=== PATIENT | female | born 1955 | race African-American/Black ===

== ENCOUNTER 2017-08-27 12:22 | Inpatient (IN) | payer MEDICARE, MEDICAID ==
[2017-08-27] MEDS ORDERED: Nitroglycerin 0.4 MG TAB (25 Tab Bottle) ONE (13:01)
[2017-08-27 13:09] LABS: #Basophils 0.1 thou/uL (0.0-0.2); #Eosinphils 0.1 thou/uL (0.0-0.7); #Lymphocytes 4.1 thou/uL (1.20-3.40); #Monocytes 0.4 thou/uL (0.11-0.59); %Basophils 1.1 % (0.0-1.0); %Eosinophils 1.5 % (0.0-10.0); %Lymphocytes 46.6 % (21.0-51.0); %Monocytes 4.5 % (0.0-10.0); %Neutrophils 46.3 % (42.0-75.0); Hemoglobin 14.4 g/dL (12.0-16.0); Mean Corpuscular HGB CONC 32.7 g/dL (32.0-36.0); Mean Corpuscular Hemoglobin 27.8 pg (27.0-31.0); Mean Corpuscular Volume 85.2 fl (81.0-99.0); Mean Platelet Volume 8.4 fL (7.4-10.4); Platelet Count 225 thou/uL (130-400); RBC Distribution Width 13.9 % (11.5-14.5); Red Blood Cell (RBC) Count 5.19 mill/uL (4.20-5.40); White Blood Cell (WBC) Count 8.7 thou/uL (4.8-10.8)
[2017-08-27 13:24] LABS: ALT (SGPT) 20 U/L (8-55); AST (SGOT) 14 U/L (5-34); Albumin 3.8 g/dL (3.4-4.8); Alkaline Phosphatase 91 U/L (40-150); Anion Gap 13 mmol/L (10-20); BUN (Urea Nitrogen) 12 mg/dL (9.8-20.1); Bilirubin, Total 0.4 mg/dL (0.2-1.2); CK (CPK) 62 U/L (29-168); Calc. Creatinine Clearance 0 mL/min (70-130); Calcium 9.5 mg/dL (7.8-10.44); Carbon Dioxide 20 mmol/L (23-31); Chloride 109 mmol/L (98-107); Estimated GFR-MDRD Greater than 90; Globulin 2.9 g/dL (2.4-3.5); Glucose 178 mg/dL (80-115); Lipase 28 U/L (8-78); Potassium 4.2 mmol/L (3.5-5.1); Protein, Total 6.7 g/dL (6.0-8.3); Sodium 138 mmol/L (136-145)
[2017-08-27 13:28] LABS: CKMB 1.2 ng/mL (0-6.6); Troponin I 0.021 ng/mL (< 0.028)
[2017-08-27] MEDS ORDERED: Acetaminophen 325 MG TAB PO PRN (15:09)
[2017-08-27] MEDS ORDERED: Ondansetron HCl/PF 4 MG/2 ML Vial IVP PRN (15:09)
[2017-08-27] MEDS ORDERED: Dextrose 5% in Water 1,000 ML IV PRN (15:09)
[2017-08-27] MEDS ORDERED: Ondansetron ODT 4 MG TAB PO PRN (15:09)
[2017-08-27] MEDS ORDERED: Milk Of Magnesia 30 ML UDCUP PO PRN (15:09)
[2017-08-27] MEDS ORDERED: Senokot 8.6 MG TAB PO PRN (15:09)
[2017-08-27] MEDS ORDERED: Dextrose 50% Abboject 50 ML SYRINGE SLOW IVP PRN (15:09)
[2017-08-27] MEDS ORDERED: cloNIDine 0.1 MG TAB PO PRN ×2 (15:09→19:05)
[2017-08-27] MEDS ORDERED: HumaLOG 300 UNITS/3 ML VIAL SC PRN (15:09)
[2017-08-27] MEDS ORDERED: Mag-Al 1200 mg/1200 mg/30 ML UDCUP PO PRN (15:09)
[2017-08-27] MEDS ORDERED: Loperamide HCl 2 MG CAP PO PRN (15:09)
[2017-08-27 15:25] VITALS: BMI 28.8
[2017-08-27] MEDS: HYDROcodone/Acetaminophen 5/325 mg Tablet PO PRN (15:38)
--- NOTE | 2017-08-27 15:55 | HP ---
PRIMARY CARE PHYSICIAN: Hipolito Dudley M.D. PRIMARY INSTALLATION DRAFTER: Dr. Smith. REASON FOR ADMISSION: Chest pain. HISTORY OF PRESENT ILLNESS: A 62-year-old -[place] female with a history of hypertension, dy slipidemia, COPD, coronary artery disease and peripheral arterial disease who presented initially to [facility] with complaint of chest pain. She was also having dyspnea on exertion. The patient reports that first time chest pain started yesterday around 3:00 p.m. At that time, she was feeling nausea. Her pain was left-sided in location, 6/10 in intensity and subsided within an ho ur. She was continued to complain of shortness of breath with some intermittent wheezing. She was a ble to go to sleep without any problem, but around 3:00 a.m., she woke up with acute onset of chest p ain and her chest pain intensity was more severe than at during daytime. It was radiating to left ar m and associated with shortness of breath. She denies any associated palpitation. She denies any re lation of chest pain with food, respiration or activity. It was constant from 3:00 a.m. to 8:00 a.m. without any change. She was evaluated at [facility]. Over there, her electrocardiograph was unremarkabl e. Her routine blood tests including cardiac enzyme were negative and subsequently she was transferr ed to our emergency room for rule out ACS. In our emergency room, patient was wheezing and that is w hy she was given DuoNeb therapy. After that, she was feeling better. She denies any hemoptysis. She denies any calf tenderness. She denies any fever or chills. She den ies any UTI symptoms. PAST MEDICAL HISTORY: Diabetes type 2, hypertension, dyslipidemia, coronary artery disease, COPD, pe ripheral arterial disease, osteoarthritis, gastroesophageal reflux disease, history of polysubstance abuse in past. PAST SURGICAL HISTORY: Thyroid surgery to remove goiter, cholecystectomy in 1975, , CABG x3 in 2012. PAST PSYCHIATRIC HISTORY: Reviewed and negative. FAMILY HISTORY: Hypertension and heart disease runs among several family members. Diabetes also run s among several family members. SOCIAL HISTORY: Patient smokes 5-6 cigars daily basis. She denies any current illicit drug abuse. She drinks alcohol occasionally. ALLERGIES: No known drug allergy. REVIEW OF SYSTEMS: The following complete review of systems was negative, unless otherwise mentioned in the HPI or below: Constitutional: Weight loss or gain, ability to conduct usual activities. Skin: Rash, itching. Eyes: Double vision, pain. ENT/Mouth: Nose bleeding, neck stiffness, pain, tenderness. Cardiovascular: Palpitations, dyspnea on exertion, orthopnea. Respiratory: Shortness of breath, wheezing, cough, hemoptysis, fever or night sweats. Gastrointestinal: Poor appetite, abdominal pain, heartburn, nausea, vomiting, constipation, or diarr hea. Genitourinary: Urgency, frequency, dysuria, nocturia. Musculoskeletal: Pain, swelling. Neurologic/Psychiatric: Anxiety, depression. Allergy/Immunologic: Skin rash, bleeding tendency. Please see my HPI for pertinent positive and negative. All other review of systems reviewed and nega tive except as mentioned in the HPI. CURRENT HOME MEDICATIONS: Aspirin 81 mg p.o. daily, Lipitor 40 mg p.o. at bedtime, Symbicort 2 puffs inhalation b.i.d., clonidine 0.1 mg p.o. b.i.d., Lasix 20 mg p.o. daily, hydralazine 50 mg t.i.d., D uoNeb q.6 hourly p.r.n., metformin 500 mg p.o. b.i.d., Bystolic 20 mg p.o. daily, Phenergan with code ine 5 mL q.6 hourly p.r.n., valsartan 160 mg p.o. b.i.d., Ventolin inhaler 2 puffs q.4 hourly p.r.n. EMERGENCY ROOM COURSE: Patient received DuoNeb therapy, nitroglycerin 0.4 mg sublingual x2, aspirin 234 mg p.o. one time dose is given. Repeat blood test done in our emergency room was unremarkable. PHYSICAL EXAMINATION: VITAL SIGNS: Currently, blood pressure 178/92, pulse 86, respiratory rate 20, temperature 98.3, satu ration 97% on room air, weight 63 kilograms. GENERAL: Patient is currently alert, awake, no acute distress. HEAD: Normocephalic, atraumatic. EYES: Pupils round, reactive to light. Extraocular muscle intact. ENT: Oropharynx within normal limits. Moist mucous membranes. No oral lesion, no pharyngeal erythe ma, no exudate. NECK: Supple, no JVD, no thyromegaly, no carotid bruit. LUNGS: Few end expiratory wheezing heard. CARDIAC: S1 and S2 regular. No murmur, no gallop, no rub. ABDOMEN: Soft, bowel sounds present, nontender, nondistended. No organomegaly, no mass, no suprapub ic tenderness. BACK: Examination unremarkable, no CVA tenderness. EXTREMITIES: Upper extremity passive movement of all joints are normal. Lower extremities: No zuleima a, no calf tenderness. Good distal pulsation. SKIN: No skin rash. HEMATOLOGICAL SYSTEM: No lymphadenopathy. PSYCHIATRIC: Normal affect. IMAGING DATA AND SIGNIFICANT LABORATORY DATA: 1. Chest x-ray based on my review, no acute cardiopulmonary process. 2. CBC: WBC 8.8, hemoglobin 14.2, platelet 247. INR 1.0. 3. BMP: Sodium 140, potassium 4.3, chloride 109, carbon dioxide 21, BUN 15, creatinine 0.82, glucos e 139, calcium 9.6, magnesium 2.2. 4. LFT: AST 19, ALT 24, alkaline phosphatase 79, albumin 3.9, CK 67, CK-MB 1.1, troponin I less giovany n 0.010 and second set is also negative, BNP 26.8, lipase 28. 5. EKG normal sinus rhythm within normal limits. ASSESSMENT AND PLAN/IMPRESSION: 1. Acute chest pain. Patient does have acute and recurrent chest pain, but cardiac enzymes negative x2 and EKG is negative. Her BNP is normal. She does not have any hypoxia. At this point, patient is admitted for rule out acute coronary syndrome. We will perform stress test tomorrow morning for d iagnostic reason. Meanwhile, we will continue with aspirin 325 mg p.o. daily, nitropatch q.8 hourly. We will check lipid profile for risk stratification and continue Lipitor 40 mg p.o. at bedtime and Bystolic 20 mg p.o. daily. 2. Chronic obstructive pulmonary disease with mild exacerbation with bronchitis. We will continue w ith DuoNeb every 6 hourly along with Dulera 2 puffs inhalation b.i.d., Solu-Medrol 20 mg IV q.8 hourl y, and Mucinex 600 mg twice daily. 3. Hypertension. We will continue clonidine 0.1 mg p.o. b.i.d., along with hydralazine 50 mg t.i.d. , Bystolic 20 mg p.o. daily, and valsartan 160 mg p.o. b.i.d. We will use hydralazine on p.r.n. basi s. 4. Dyslipidemia. Check lipid profile tomorrow and continue Lipitor 40 mg p.o. at bedtime. 5. Diabetes type 2. Continue metformin 500 mg p.o. b.i.d. and insulin as per sliding scale per prot ocol. Diabetic diet will be given. 6. Tobacco abuse disorder. Smoking cessation counseling given. Healthy lifestyle measures discusse d with the patient. 7. Coronary artery disease. Continue aspirin, statin therapy and Bystolic as well as losartan as pe r home dosage. Patient is admitted for rule out acute coronary syndrome. 8. Deep venous thrombosis prophylaxis not needed because we are expecting discharge in 24 hours. 9. Gastrointestinal prophylaxis, Pepcid 20 mg p.o. b.i.d. 10. Code status: The patient is FULL CODE. Patient's daughter is surrogate decision maker. Disposition plan based on stress test result, likely within 24 hours. Plan of care discussed with th fernando patient and family member at bedside in the emergency room.
[2017-08-27 16:28] LABS: Troponin I 0.044 ng/mL (< 0.028)
[2017-08-27] MEDS: metFORMIN 500 MG TAB PO SCH (17:54)
[2017-08-27] MEDS: Mometasone/Formoterol 120 PUFF INHALER INH SCH (18:54)
[2017-08-27 19:30] LABS: Troponin I 0.043 ng/mL (< 0.028)
[2017-08-27] MEDS ORDERED: cloNIDine 0.1 MG TAB PO SCH (21:00)
[2017-08-27] MEDS ORDERED: Atorvastatin Calcium 40 MG TAB PO SCH (21:00)
[2017-08-27] MEDS: hydrALAZINE 25 MG TAB PO SCH (22:17)
[2017-08-27] MEDS: Carvedilol 25 MG TAB PO SCH (22:17)
[2017-08-27] MEDS: Famotidine 20 MG TAB PO SCH (22:17)
[2017-08-27] MEDS: Valsartan 80 MG TAB PO SCH (22:17)
[2017-08-27] MEDS: guaiFENesin ER 600 MG TAB PO SCH (22:18)
[2017-08-27] MEDS: Nitroglycerin 2% Ointment 1 INCH/1 GM Packet TOP SCH (22:19)
[2017-08-28] MEDS: Nitroglycerin 0.4 MG TAB (25 Tab Bottle) ONE ×2 (01:13→01:18)
[2017-08-28 01:56] LABS: Troponin I 0.036 ng/mL (< 0.028)
[2017-08-28] MEDS: Nitroglycerin 2% Ointment 1 INCH/1 GM Packet TOP SCH ×4 (01:57→18:21)
[2017-08-28] MEDS ORDERED: Aspirin 325 MG TAB PO SCH (02:00)
[2017-08-28 04:59] LABS: Cardiac Risk 6.2 (Less than 4.5)
[2017-08-28] MEDS: Mometasone/Formoterol 120 PUFF INHALER INH SCH ×2 (06:36→19:00)
[2017-08-28 08:03] LABS: Troponin I 0.029 ng/mL (< 0.028)
[2017-08-28] MEDS ORDERED: Nebivolol HCl 5 MG TAB PO SCH (09:00)
[2017-08-28] MEDS: metFORMIN 500 MG TAB PO SCH ×2 (09:51→15:40)
[2017-08-28] MEDS: Carvedilol 25 MG TAB PO SCH ×2 (09:59→21:28)
[2017-08-28] MEDS: hydrALAZINE 25 MG TAB PO SCH ×3 (11:44→21:29)
[2017-08-28] MEDS: Valsartan 80 MG TAB PO SCH ×2 (11:44→21:29)
[2017-08-28] MEDS: Aspirin 325 MG TAB PO SCH (11:45)
[2017-08-28] MEDS: Famotidine 20 MG TAB PO SCH ×2 (11:45→21:28)
[2017-08-28] MEDS: Nitroglycerin 0.4 MG TAB (25 Tab Bottle) SL PRN ×3 (14:09→16:10)
[2017-08-28] MEDS ORDERED: Heparin 0 ML ONE (14:32)
[2017-08-28] MEDS ORDERED: Heparin 10,000 UNITS/1 ML VIAL ONE (14:33)
[2017-08-28] MEDS ORDERED: Lidocaine 1% (PF) 30 ML VIAL ONE (14:33)
[2017-08-28] MEDS: guaiFENesin ER 600 MG TAB PO SCH ×2 (14:40→21:29)
[2017-08-28] MEDS: Furosemide 20 MG TAB PO SCH (14:40)
--- NOTE | 2017-08-28 15:14 | PDOC.PN ---
- Subjective Encounter Start Date: 08/28/17 Encounter Start Time: 15:12 Ms. Kurtz was seen today in follow-up of chest pain. She says she is feeling better now, after she was given a dose of NTG. She denies feeling dizzy or lightheaded. - Objective Resuscitation Status: Resuscitation Status FULL:Full Resuscitation MAR Reviewed: Yes Vital Signs & Weight: Vital Signs (12 hours) Temp Pulse Resp BP BP Pulse Ox 08/28/17 14:09 77 191/97 H 08/28/17 14:00 87 145/87 H 08/28/17 11:44 77 08/28/17 11:24 98.3 F 59 L 20 191/79 H 97 08/28/17 07:34 97.4 F L 77 17 134/70 95 08/28/17 07:20 97.4 F L 77 17 08/28/17 06:37 80 14 08/28/17 04:25 96.5 F L 85 18 144/63 H 93 L Weight Weight 167 lb 11.2 oz I&O: 08/27/17 08/28/17 08/29/17 06:59 06:59 06:59 Intake Total 600 Balance 600 Result Diagrams: 08/27/17 12:54 08/27/17 12:54 Additional Labs: Accuchecks 08/28/17 08/27/17 08/27/17 05:54 22:18 17:06 POC Glucose 275 H 123 H 163 H Phys Exam - Physical Examination HEENT: PERRLA Respiratory: no wheezing, no rales, no rhonchi, clear to auscultation bilateral Cardiovascular: RRR, no significant murmur, no rub Gastrointestinal: soft, non-tender, positive bowel sounds Musculoskeletal: no edema Dx/Plan (1) Chest pain Code(s): R07.9 - CHEST PAIN, UNSPECIFIED Status: Acute (2) Coronary artery disease Code(s): I25.10 - ATHSCL HEART DISEASE OF [place] CORONARY ARTERY W/O ANG PCTRS Status: Acute (3) Diabetes mellitus type 2 in nonobese Code(s): E11.9 - TYPE 2 DIABETES MELLITUS WITHOUT COMPLICATIONS Status: Acute (4) Hypertension Code(s): I10 - ESSENTIAL (PRIMARY) HYPERTENSION Status: Acute (5) COPD (chronic obstructive pulmonary disease) Status: Acute (6) Tobacco abuse Code(s): Z72.0 - TOBACCO USE Status: Acute - Plan * Chest pain- this is suspicious for angina * The stress test was cancelled due to some arrhythmia noted earlier today, with ST segment changes- discussed with Dr. Barclay, who will be assessing the patient today. Echo has been ordered * Tobacco Abuse- discussed cessation in detail * HTN- blood pressure has been labile- she is back on her usual medications- will observe and continue PRN medications * COPD- stable- again discussed smoking cessation.
--- NOTE | 2017-08-28 15:43 | NM ---
MYOCARDIAL PERFUSION EXAM: INDICATIONS: Chest pain. TECHNIQUE: The patient was given 9 millicuries of technetium sestamibi. A rest only study was performed. The e xam was canceled by the rn orthopaedic after the rest only study. Activity is seen throughout the left ventricle on the rest only study. Mild thinning of the inferior wall. FINDINGS: Rest only study shows no definite defect. POS: [facility]
[2017-08-28] MEDS ORDERED: Enoxaparin Sodium 80 MG/0.8 ML SYRINGE SC SCH ×2 (15:45→21:00)
[2017-08-28 16:51] LABS: Amphetamine Not Detected (NotDetected); Barbiturates Screen Not Detected (NotDetected); Benzodiazepine Screen Not Detected (NotDetected); Cocaine Metabolite Screen Detected (NotDetected); Medtox Control Line Valid? VALID (VALID); Medtox Reader # READER 1; Methadone Not Detected (NotDetected); Methamphetamine Not Detected (NotDetected); Opiate Screen Detected (NotDetected); Oxycodone Screen Not Detected (NotDetected); Phencyclidine (PCP) Not Detected (NotDetected); THC/Cannabinoid Screen Not Detected (NotDetected); Tricyclic Screen Not Detected (NotDetected)
--- NOTE | 2017-08-28 18:35 | CON ---
DATE OF CONSULTATION: 08/28/2017 HISTORY: Ms. Shawnee Kurtz is a pleasant 62-year-old black female who presents with chest discomfort. She was evaluated here in 09/[address] Smith. She had mildly elevated troponin and was to undergo cardiac catheterization; however , no femoral, popliteal, posterior tibial or dorsalis pedis pulses were felt. She underwent a CTA of the abdominal aorta, which revealed that there was probable occlusion at the bifurcation. She therefore underwent cardiac catheterization via the radial approach by Dr. Jean. There was a significant left main disease, distal 50%-60% LAD, 90%-95% stenosis of the circumflex and the right coronary artery was totally occluded in its proximal portion. She then underwent CABG x3 by Dr. Cifuentes with MARLOW to LAD, saphenous vein to the first obtuse marginal and saphenous vein to the diagonal (with a description of the procedure, the diagonal was not mentioned; however, the procedure in detail mentioned that there was a graft to the diagonal.) The second obtuse marginal, third obtuse marginal, fourth obtuse marginal and right posterior descending artery were all felt to be too small and heavily diseased for bypass. Apparently, her postop course was unremarkable. It is also of note that during that admission, she had positive urine drug screen for cocaine and cannabinoids. She apparently has not returned for Cardiology follow up since that time. She was hospitalized in 01/2016 with COPD exacerbation. She denies any exertional chest discomfort, it is mostly limited by pain in her right leg with walking. Then, over the past 8 days, she has started to have chest pressure associated with shortness of breath and diaphoresis. The episodes would last anywhere from 3-20 minutes. The pain became more intense and she went to the hospital in [place] and was transferred here for further evaluation. She was scheduled to undergo a Lexiscan Cardiolite testing ; however, it was noted that she had an episode of chest discomfort early this morning at 0113. This was accompanied by a [address] segment depression. With this finding associated with chest pain, it was felt that she should not undergo Cardiolite testing. PAST MEDICAL HISTORY: Diabetes, hyperlipidemia (she states she does not take the atorvastatin daily), coronary artery disease, COPD, severe peripheral vascular disease with subtotally occluded aorta in 2012, osteoarthritis, GERD, polysubstance abuse in the past. OPERATIONS: CABG, thyroid surgery for goiter, and cholecystectomy. MEDICATIONS: At home, aspirin 81 daily, atorvastatin 40 at bedtime, carvedilol 25 b.i.d., clonidine 0.1 mg b.i.d. p.r.n., Lasix 20 mg daily, hydralazine 50 t.i.d., metformin 500 b.i.d., valsartan 160 b.i.d., Ventolin 2 puffs q.4 hours p.r.n. ALLERGIES: None. SOCIAL HISTORY: She continues to smoke 3-4 cigarettes per day. She occasionally drinks alcohol. She abuse cocaine in the past. FAMILY HISTORY: Heart disease in family members. REVIEW OF SYSTEMS: Twelve point review of systems otherwise unremarkable. PHYSICAL EXAMINATION: VITAL SIGNS: Blood pressure 191/97, pulse of 77. HEENT: PERRL. NECK: Supple. LUNGS: Chest revealed bilateral rhonchi. CARDIOVASCULAR: S1, S2 normal, without any S3 or S4. There is a 2/6 systolic ejection murmur in the aortic area. Carotid upstrokes normal without bruits. Dorsalis pedis, posterior tibial pulses, femoral pulses are absent. ABDOMEN: Normal bowel sounds, without tenderness. EXTREMITIES: Revealed no clubbing, cyanosis or edema. NEUROLOGIC: Grossly intact. LABORATORY DATA AND IMAGING: EKG reveals normal sinus rhythm, possible left atrial enlargement. She does have ST segment depression with chest pain as noted above. CBC is unremarkable. INR 1.0. Sodium 138, potassium 4.2, chloride 109, carbon dioxide 20, BUN 12, creatinine 0.76. Troponin I is 0.044. BNP 55.1. Cholesterol 265, triglycerides 113, LDL 99, HDL 43. IMPRESSION: 1. Acute coronary syndrome with ST segment depression with chest discomfort, borderline troponin. 2. Status post coronary artery bypass graft x3 in 09/2012 with a MARLOW to LAD, vein graft to the diagonal and the first obtuse marginal. The second, third, and fourth obtuse marginals and right posterior descending were too smaller disease for bypass. 3. Aortic murmur. 4. Subtotal versus totally occluded distal aorta on CT of the abdomen in 2012. 5. Hypertension. 6. Hypercholesterolemia, poorly controlled, noncompliant with atorvastatin. 7. Diabetes. 8. The patient continues to smoke. 9. Positive family history. 10. History of cocaine abuse. PLAN: Atorvastatin will be increased to 40 mg daily. Urine drug screen will be obtained. Carvedilol dose will be increased for better blood pressure control. Topical nitrates will also be added. She will be given one shot of Lovenox 1 mg/kg at this time. Ms. Kurtz represents a significant problem in terms of the subtotally occluded aorta and probable inability to have her undergo cardiac catheterization from the femoral approach. Probable only approach should be through a radial artery ; however, opacifying bypass grafts from this approach is extremely difficult. Further consultation will be held with apple sorter who do radial approach, in the meantime, her medications will be further increased. BLESSING
[2017-08-28] MEDS: Atorvastatin Calcium 40 MG TAB PO SCH (21:28)
[2017-08-28] MEDS: Zolpidem Tartrate 5 MG TAB PO PRN (21:30)
[2017-08-29] MEDS: Nitroglycerin 2% Ointment 1 INCH/1 GM Packet TOP SCH ×6 (01:03→22:35)
[2017-08-29] MEDS: Nitroglycerin 0.4 MG TAB (25 Tab Bottle) SL PRN ×2 (01:38→20:46)
[2017-08-29] MEDS: Mometasone/Formoterol 120 PUFF INHALER INH SCH ×2 (06:44→18:40)
--- NOTE | 2017-08-29 07:26 | PRG ---
DATE OF SERVICE: 08/29/2017 Ms. Kurtz is resting comfortably this morning. No chest pain or pressure this morning. PHYSICAL EXAMINATION: VITAL SIGNS: Blood pressure 133/60, pulse is 90. I reviewed the situation with the patient. The patient does admit to using cocaine sporadically prio r to admission, smoking about 3 cigarettes per day. She said she was not taking the atorvastatin on a regular basis. She was taking aspirin. ASSESSMENT: 1. Unstable angina. 2. Cocaine addiction. 3. Previous bypass. 4. Severe peripheral vascular disease. 5. Diabetes. 6. Noncompliance with medicines. PLAN: Dr. Aleman will see the patient today to assess whether she is a candidate for cardiac cathete rization. It is very concerning that she has not been compliant with medicines. She said she was co mpliant with aspirin, but was taking atorvastatin sporadically. The LDL reflects that as the LDL is 199.
[2017-08-29] MEDS: Valsartan 80 MG TAB PO SCH ×2 (10:12→20:39)
[2017-08-29] MEDS: Famotidine 20 MG TAB PO SCH ×2 (10:12→20:40)
[2017-08-29] MEDS: Aspirin 325 MG TAB PO SCH (10:15)
[2017-08-29] MEDS: hydrALAZINE 25 MG TAB PO SCH ×3 (10:17→20:38)
[2017-08-29] MEDS: guaiFENesin ER 600 MG TAB PO SCH ×2 (10:17→20:39)
[2017-08-29] MEDS: Carvedilol 25 MG TAB PO SCH ×3 (10:19→20:40)
[2017-08-29] MEDS: Furosemide 20 MG TAB PO SCH (10:19)
[2017-08-29] MEDS: metFORMIN 500 MG TAB PO SCH ×2 (10:19→16:06)
[2017-08-29] MEDS ORDERED: Diazepam 5 MG TAB PO SCH (11:00)
--- NOTE | 2017-08-29 13:44 | PDOC.PN ---
- Subjective Encounter Start Date: 08/29/17 Encounter Start Time: 13:42 Ms. Kurtz was seen today in follow-up. She has not had any chest pain today. She is breathing ok, and denies dyspnea. - Objective Resuscitation Status: Resuscitation Status FULL:Full Resuscitation MAR Reviewed: Yes Vital Signs & Weight: Vital Signs (12 hours) Temp Pulse Resp BP BP Pulse Ox 08/29/17 12:00 80 14 08/29/17 10:40 97.9 F 89 12 144/67 H 95 08/29/17 10:17 78 144/75 H 08/29/17 08:00 98.2 F 78 12 08/29/17 07:27 98.2 F 78 12 144/65 H 95 08/29/17 06:44 90 14 08/29/17 04:10 97.7 F 83 18 133/60 96 08/29/17 01:50 98 18 96 Weight Weight 167 lb 11.2 oz I&O: 08/28/17 08/29/17 08/30/17 06:59 06:59 06:59 Intake Total 600 480 Output Total 1200 Balance 600 -720 Result Diagrams: 08/27/17 12:54 08/27/17 12:54 Additional Labs: Accuchecks 08/29/17 08/29/17 08/28/17 10:42 07:01 20:44 POC Glucose 190 H 201 H 162 H 08/28/17 08/28/17 08/28/17 18:31 16:20 11:30 POC Glucose 217 H 250 H 161 H Phys Exam - Physical Examination HEENT: PERRLA Respiratory: no wheezing, no rales, no rhonchi, clear to auscultation bilateral Cardiovascular: RRR, no significant murmur, no rub Gastrointestinal: soft, non-tender, positive bowel sounds Musculoskeletal: no edema Dx/Plan (1) Chest pain Code(s): R07.9 - CHEST PAIN, UNSPECIFIED Status: Acute (2) Coronary artery disease Code(s): I25.10 - ATHSCL HEART DISEASE OF [place] CORONARY ARTERY W/O ANG PCTRS Status: Acute (3) Diabetes mellitus type 2 in nonobese Code(s): E11.9 - TYPE 2 DIABETES MELLITUS WITHOUT COMPLICATIONS Status: Acute (4) Hypertension Code(s): I10 - ESSENTIAL (PRIMARY) HYPERTENSION Status: Acute (5) COPD (chronic obstructive pulmonary disease) Status: Acute (6) Tobacco abuse Code(s): Z72.0 - TOBACCO USE Status: Acute - Plan * Unstable Angina - She has a history of coronary artery disease, and developed an arrhythmia with ST segment changes- therefore will change her status to in- patient. She has been evaluated by Dr. Aleman who plans on performing a cardiac cath * UDS was noted, and the dangers and need to stop cocaine use was discussed. ( She admits to using some on the weekends). * HTN- blood pressure is a bit elevated- will monitor * Dyslipidemia- she has been encouraged to be complaint with Lipitor * Tobacco abuse- discussed smoking cessation * DM- blood glucose is stable
[2017-08-29] MEDS: HumaLOG 300 UNITS/3 ML VIAL SC PRN (17:21)
[2017-08-29] MEDS: Atorvastatin Calcium 40 MG TAB PO SCH (20:39)
[2017-08-29] MEDS: Zolpidem Tartrate 5 MG TAB PO PRN (20:46)
[2017-08-30] MEDS: Nitroglycerin 0.4 MG TAB (25 Tab Bottle) SL PRN ×5 (00:32→22:19)
[2017-08-30] MEDS: guaiFENesin ER 600 MG TAB PO SCH ×2 (05:44→20:54)
[2017-08-30] MEDS: Nitroglycerin 2% Ointment 1 INCH/1 GM Packet TOP SCH ×4 (05:44→21:52)
[2017-08-30] MEDS: Valsartan 80 MG TAB PO SCH ×2 (05:44→20:54)
[2017-08-30] MEDS: Carvedilol 25 MG TAB PO SCH ×3 (05:45→20:55)
[2017-08-30] MEDS: Furosemide 20 MG TAB PO SCH (05:45)
[2017-08-30] MEDS: Famotidine 20 MG TAB PO SCH ×2 (05:45→20:54)
[2017-08-30] MEDS: hydrALAZINE 25 MG TAB PO SCH ×3 (05:45→20:54)
[2017-08-30] MEDS: Aspirin 325 MG TAB PO SCH (05:45)
[2017-08-30] MEDS ORDERED: Heparin 10,000 UNITS/1 ML VIAL ONE (06:33)
[2017-08-30] MEDS ORDERED: Verapamil 5 MG/2 ML VIAL ONE (06:33)
[2017-08-30] MEDS ORDERED: Nitroglycerin 100MG/250ML BOT 250 ML ONE (06:34)
[2017-08-30] MEDS ORDERED: Lidocaine 1% (PF) 30 ML VIAL ONE (06:40)
[2017-08-30] MEDS: Mometasone/Formoterol 120 PUFF INHALER INH SCH ×2 (07:07→18:56)
[2017-08-30] MEDS ORDERED: Midazolam HCl 2 mg/2 ml Vial ONE (07:29)
[2017-08-30] MEDS ORDERED: Fentanyl 100 MCG/2 ML VIAL ONE (07:30)
[2017-08-30] MEDS ORDERED: traMADol HCl 50 MG TAB PO PRN (08:06)
[2017-08-30] MEDS ORDERED: Acetaminophen/Codeine 30-300mg Tablet PO PRN (08:06)
[2017-08-30] MEDS ORDERED: Sodium Chloride 0.9% 1,000 ML IV SCH (08:15)
[2017-08-30] MEDS ORDERED: Sodium Chloride 0.9% 200 ML IV SCH (08:15)
[2017-08-30] MEDS: metFORMIN 500 MG TAB PO SCH (09:37)
[2017-08-30] MEDS ORDERED: Amlodipine 5 MG TAB PO SCH ×2 (10:45→11:00)
--- NOTE | 2017-08-30 10:59 | PDOC.PN ---
- Subjective Encounter Start Date: 08/30/17 Encounter Start Time: 10:58 Ms. Kurtz was seen today in follow-up. She does not have any complaints today. She admits to some chest pain early this morning, after getting up to go to the bathroom. She says it was relieved with nitroglycerin after about 5 minutes. - Objective MAR Reviewed: Yes Vital Signs & Weight: Vital Signs (12 hours) Temp Pulse Resp BP Pulse Ox 08/30/17 08:00 97 F L 83 17 144/95 H 94 L 08/30/17 05:45 82 08/30/17 03:34 156/73 H 08/30/17 03:28 97.9 F 82 20 192/86 H 93 L 08/30/17 00:46 90 134/64 08/30/17 00:40 89 129/65 08/30/17 00:32 88 196/93 H 08/30/17 00:12 85 12 08/30/17 00:00 98 F 59 L 16 141/62 H 97 I&O: 08/29/17 08/30/17 08/31/17 06:59 06:59 06:59 Intake Total 790 Balance 790 Result Diagrams: 08/27/17 12:54 08/27/17 12:54 Additional Labs: Accuchecks 08/30/17 08/30/17 08/29/17 10:42 06:04 21:33 POC Glucose 275 H 260 H 261 H 08/29/17 08/29/17 16:36 14:07 POC Glucose 290 H 147 H Phys Exam - Physical Examination HEENT: PERRLA Respiratory: no wheezing, no rales, no rhonchi Cardiovascular: RRR, no significant murmur, no rub Gastrointestinal: soft, non-tender, positive bowel sounds Musculoskeletal: no edema Dx/Plan (1) Chest pain Code(s): R07.9 - CHEST PAIN, UNSPECIFIED Status: Acute (2) Coronary artery disease Code(s): I25.10 - ATHSCL HEART DISEASE OF [place] CORONARY ARTERY W/O ANG PCTRS Status: Acute (3) Diabetes mellitus type 2 in nonobese Code(s): E11.9 - TYPE 2 DIABETES MELLITUS WITHOUT COMPLICATIONS Status: Acute (4) Hypertension Code(s): I10 - ESSENTIAL (PRIMARY) HYPERTENSION Status: Acute (5) COPD (chronic obstructive pulmonary disease) Status: Acute (6) Tobacco abuse Code(s): Z72.0 - TOBACCO USE Status: Acute - Plan * Unstable Angina- Cath results were noted. She will be treated medically * HTN- her blood pressure is not optimally controlled- will add Norvasc * DM- blood glucose is slightly elevated- but will need to hold Metformin due to Cardiac Cath this morning. * COPD- stable * Disposition per Cardiology
--- NOTE | 2017-08-30 11:55 | PQF ---
CLINICAL DOCUMENTATION IMPROVEMENT CLARIFICATION FORM: ICD-10 Updated PLEASE DO AN ADDENDUM TO THE PROGRESS NOTE WITH ANY DOCUMENTATION UPDATES OR ADDITIONS AND CARRY THROUGH TO DC SUMMARY. THANK YOU. DATE: 08/30 ATTN: DR. ROLANDO POPE Please exercise your independent, professional judgment in responding to the clarification form. Clinical indicators are provided on the bottom of this form for your review Please check appropriate box(s): ELEVATED TROPONIN I [ ] D/T Demand Ischemia [ ] Not D/T Demand Ischemia [ ] Other diagnosis [ ] Unable to determine For continuity of documentation, please document condition throughout progress notes and discharge summary. Thank You. CLINICAL INDICATORS present in the medical record: PHYSICIAN H&P DOCUMENTATION 08/27: 1) PT DOES HAVE ACUTE & RECURRENT CHEST PAIN , BUT CARDIAC ENZYMES NEG X2 CARDIOLOGY CONSULT 08/28: 1) ACUTE CORONARY SYNDROME W/ST SEGMENT DEPRESSION WITH CHEST DISCOMFORT, BORDERLINE TROPONIN TROP: 0.021, 0.044, 0.043, 0.036, 0.030, 0.029 (08/27 - ) RISK FACTORS: CAD W/PAST CABG CURRENT TOBACCO ABUSE COCAINE ABUSE (POSITIVE UDS) HTN DM II TREATMENTS: CARDIOLOGY CONSULT L HEART CATH SERIAL CARDIAC ENZYMES THANK YOU! Maribel (This form is maintained as a part of the permanent medical record) 2014 [employer]. All Rights Reserved Maribel Nguyen RN, BSN [email or web address] Office: [phone] [facility] HOSPITALDonnell
[2017-08-30] MEDS ORDERED: Iopamidol 370 76% 100 ML VIAL ONE (12:11)
[2017-08-30] MEDS: HumaLOG 300 UNITS/3 ML VIAL SC PRN ×2 (12:36→18:25)
[2017-08-30] MEDS: Atorvastatin Calcium 40 MG TAB PO SCH (20:53)
[2017-08-30] MEDS: Zolpidem Tartrate 5 MG TAB PO PRN (20:59)
[2017-08-31] MEDS: Nitroglycerin 2% Ointment 1 INCH/1 GM Packet TOP SCH ×2 (05:52→12:50)
[2017-08-31] MEDS: Mometasone/Formoterol 120 PUFF INHALER INH SCH (07:10)
[2017-08-31] MEDS: Aspirin 325 MG TAB PO SCH (08:11)
[2017-08-31] MEDS: Valsartan 80 MG TAB PO SCH (08:11)
[2017-08-31] MEDS: Famotidine 20 MG TAB PO SCH (08:11)
[2017-08-31] MEDS: hydrALAZINE 25 MG TAB PO SCH ×2 (08:12→15:15)
[2017-08-31] MEDS: guaiFENesin ER 600 MG TAB PO SCH (08:12)
[2017-08-31] MEDS: Carvedilol 25 MG TAB PO SCH ×2 (08:12→15:15)
[2017-08-31] MEDS: Furosemide 20 MG TAB PO SCH (08:12)
[2017-08-31] MEDS ORDERED: Amlodipine 5 MG TAB PO SCH ×2 (09:00→12:45)
[2017-08-31] MEDS ORDERED: Clopidogrel Bisulfate 300 MG TAB PO SCH (09:00)
[2017-08-31] MEDS: Nitroglycerin 0.4 MG TAB (25 Tab Bottle) SL PRN ×2 (09:33→12:58)
[2017-08-31] MEDS: HYDROcodone/Acetaminophen 5/325 mg Tablet PO PRN (09:43)
[2017-08-31 11:53] LABS: Anion Gap 13 mmol/L (10-20); BUN (Urea Nitrogen) 28 mg/dL (9.8-20.1); Calc. Creatinine Clearance 78 mL/min (70-130); Calcium 9.5 mg/dL (7.8-10.44); Carbon Dioxide 21 mmol/L (23-31); Chloride 105 mmol/L (98-107); Estimated GFR-MDRD 79; Glucose 361 mg/dL (80-115); Potassium 4.1 mmol/L (3.5-5.1); Sodium 135 mmol/L (136-145)
--- NOTE | 2017-08-31 12:47 | PRG ---
DATE OF SERVICE: 08/31/2017 HISTORY: Ms. Kurtz is doing better. She did have one episode of chest discomfort this morning, res olved with nitroglycerin. PHYSICAL EXAMINATION: VITAL SIGNS: Blood pressure was high 175/81, pulse 84. LUNGS: Clear. CARDIAC: Normal S1, S2. ABDOMEN: Soft, nontender. EXTREMITIES: There is no edema. ASSESSMENT: 1. Coronary artery disease. Medical therapy being the only option due to distal atherosclerosis. 2. Patent bypass grafts as outlined in the chart. PLAN: 1. Increase amlodipine to 10 mg a day. 2. Other medicines unchanged. 3. Add Plavix 75 mg daily and continue aspirin as well as statin and all the other medicine. Okosiris w ith me to be released home. Medical therapy is the only option. The patient understands it is critical to take medicines as prescribed and avoid all cocaine or other drugs.
[2017-08-31] MEDS: HumaLOG 300 UNITS/3 ML VIAL SC PRN (12:51)
--- NOTE | 2017-08-31 13:16 | DIS ---
PRIMARY CARE PHYSICIAN: Dr. Mcmillan DATE OF ADMISSION: 08/29/2017 DATE OF DISCHARGE: 08/31/2017 DISCHARGE DISPOSITION: Home. PRIMARY DISCHARGE DIAGNOSES: 1. Unstable angina. 2. History of coronary artery disease. 3. Cocaine abuse. 4. Tobacco abuse. 5. Diabetes mellitus, type 2. 6. Hypertension. 7. Dyslipidemia. 8. Chronic obstructive pulmonary disease. 9. Peripheral artery disease. 10. Osteoarthritis. DISCHARGE MEDICATIONS: Plavix 75 mg daily, amlodipine 10 mg daily, aspirin 81 mg daily, Lipitor 40 m g at bedtime, Symbicort 80/4.5 two puffs twice a day, Carvedilol 25 mg twice a day, clonidine 0.1 mg twice daily, Lasix 20 mg daily, hydralazine 50 mg t.i.d., metformin 500 mg twice a day, Nitrostat 0.4 sublingual p.r.n., Diovan 160 mg twice daily and Ventolin inhaler 2 puffs as needed every 4 hours. PROCEDURES DONE DURING ADMISSION: The patient had a nuclear stress test which was aborted due to the patient suffering an arrhythmia with ST segment changes. There was a rest study done which was nonr evealing. The patient also had a cardiac catheterization showing severe [place] disease of the small vessels. There was an occluded LAD, left circ and RCA. There was a patent saphenous graft to the OM I, the MARLOW was not imaged and there was recommendation for medical therapy. CODE STATUS: Full code. ALLERGIES: No known drug allergies. HOSPITAL COURSE: Ms. Kurtz is a pleasant 62-year-old female who presented to the emergency room wit h complaints of chest pain. She was placed in observation and ruled out and the plan was to have a n uclear stress test; however, the patient developed some tachyarrhythmia with some ST segment changes which was associated with some chest pain. For this reason, the stress test was aborted and Cardiolo gy was consulted. She underwent cardiac catheterization in which it was found that she had some sign ificant coronary artery disease; however, it was not amenable to invasive intervention. It was recom mended that she be treated medically. Her blood pressure was not adequately controlled and for this reason, amlodipine was added. She also continues to smoke and therefore, smoking cessation was recom mended and she was counseled on this as well. She also continued to use cocaine recreationally on we ekends and she was instructed on the dangers of this and the need to do to stop this as well, as well as to take her Lipitor on a regular basis. At the time of discharge, she was pain free and will be discharged home in stable condition.
[2017-08-31 16:46] VITALS: BP 136/65; TEMP 98.1
[2017-09-01] MEDS ORDERED: Clopidogrel Bisulfate 75 MG TAB PO SCH (09:00)
[2017-09-01] MEDS ORDERED: Amlodipine 10 MG TAB PO SCH (09:00)
== END 2017-08-31 17:40 | disposition home or self-care (01) | DRG 287 ==
LOC: ERS 12:22 → 2SW 14:11 → OBSVTOIN 08-29 13:48 → 2NO 08-29 17:48
PROVIDERS: ADMIT Internal Medicine; ATTEND Internal Medicine
PROC: 4A023N7 Measurement of Cardiac Sampling and Pressure, Left Heart, Percutaneous Approach (ICD-10-PCS; principal; 2017-08-30)
PROC: B21F1ZZ Fluoroscopy of Other Bypass Graft using Low Osmolar Contrast (ICD-10-PCS; 2017-08-30)
PROC: B2111ZZ Fluoroscopy of Multiple Coronary Arteries using Low Osmolar Contrast (ICD-10-PCS; 2017-08-30)
DX: I25.110 Atherosclerotic heart disease of native coronary artery with unstable angina pectoris (principal); J44.1 Chronic obstructive pulmonary disease with (acute) exacerbation; I25.82 Chronic total occlusion of coronary artery; F14.10 Cocaine abuse, uncomplicated; F17.210 Nicotine dependence, cigarettes, uncomplicated; E11.8 Type 2 diabetes mellitus with unspecified complications; I10 Essential (primary) hypertension; E78.5 Hyperlipidemia, unspecified; I73.9 Peripheral vascular disease, unspecified; M19.90 Unspecified osteoarthritis, unspecified site; K21.9 Gastro-esophageal reflux disease without esophagitis; J40 Bronchitis, not specified as acute or chronic; I35.8 Other nonrheumatic aortic valve disorders; E78.00 Pure hypercholesterolemia, unspecified; Z95.1 Presence of aortocoronary bypass graft; Z79.84 Long term (current) use of oral hypoglycemic drugs; Z90.49 Acquired absence of other specified parts of digestive tract; Z79.82 Long term (current) use of aspirin; Z79.899 Other long term (current) drug therapy; Z91.14 Patient's other noncompliance with medication regimen
CPT/HCPCS: 36415; 36416; 78451; 80048; 80061; 80306; 83690; 83880; 84484; 93005; 93010; 93455; 94640; 94664; 99152; A4216; A9500; C1769; J1644; J1650; J2001; J2250; J2920; J3010; J7620; Q0162

== ENCOUNTER 2018-04-03 17:37 | Inpatient (IN) | payer MEDICARE, MEDICAID ==
[2018-04-03 18:12] LABS: #Basophils 0.1 thou/uL (0.0-0.2); #Eosinphils 0.1 thou/uL (0.0-0.7); #Lymphocytes 4.4 thou/uL (1.20-3.40); #Monocytes 0.5 thou/uL (0.11-0.59); #Neutrophils 4.2 thou/uL (1.40-6.50); %Basophils 1.5 % (0.0-1.0); %Eosinophils 1.4 % (0.0-10.0); %Lymphocytes 46.8 % (21.0-51.0); %Monocytes 5.1 % (0.0-10.0); %Neutrophils 45.2 % (42.0-75.0); Hemoglobin 13.4 g/dL (12.0-16.0); Mean Corpuscular HGB CONC 32.1 g/dL (32.0-36.0); Mean Corpuscular Hemoglobin 27.3 pg (27.0-31.0); Mean Corpuscular Volume 85.1 fL (78.0-98.0); Mean Platelet Volume 8.9 fL (7.4-10.4); Platelet Count 265 thou/uL (130-400); RBC Distribution Width 14.6 % (11.5-14.5); Red Blood Cell (RBC) Count 4.89 mill/uL (4.20-5.40); White Blood Cell (WBC) Count 9.4 thou/uL (4.8-10.8)
[2018-04-03 18:34] LABS: ALT (SGPT) 12 U/L (8-55); AST (SGOT) 11 U/L (5-34); Albumin 3.6 g/dL (3.4-4.8); Alkaline Phosphatase 75 U/L (40-150); Anion Gap 14 mmol/L (10-20); BUN (Urea Nitrogen) 11 mg/dL (9.8-20.1); Bilirubin, Total 0.3 mg/dL (0.2-1.2); CK (CPK) 48 U/L (29-168); Calc. Creatinine Clearance 0 mL/min (70-130); Carbon Dioxide 20 mmol/L (23-31); Chloride 110 mmol/L (98-107); Estimated GFR-MDRD 81; Globulin 2.8 g/dL (2.4-3.5); Glucose 116 mg/dL (80-115); Lipase 24 U/L (8-78); Potassium 3.5 mmol/L (3.5-5.1); Protein, Total 6.4 g/dL (6.0-8.3); Sodium 140 mmol/L (136-145)
[2018-04-03] MEDS ORDERED: Ondansetron PF 4 MG/2 ML Vial IVP PRN (18:58)
[2018-04-03] MEDS ORDERED: hydrALAZINE 20 MG/ML VIAL SLOW IVP PRN (18:58)
[2018-04-03] MEDS ORDERED: Acetaminophen 325 MG TAB PO PRN (18:58)
[2018-04-03] MEDS ORDERED: Benzonatate 100 MG CAP PO PRN (18:58)
[2018-04-03] MEDS ORDERED: cloNIDine 0.1 MG TAB PO PRN (18:58)
[2018-04-03] MEDS ORDERED: Senokot S 8.6-50 MG TAB PO PRN (18:58)
[2018-04-03] MEDS ORDERED: Dextrose 5% in Water 1,000 ML IV PRN (19:01)
[2018-04-03] MEDS ORDERED: Dextrose 50% Abboject 50 ML SYRINGE SLOW IVP PRN (19:01)
[2018-04-03] MEDS ORDERED: HumaLOG 300 UNITS/3 ML VIAL SC PRN (19:01)
--- NOTE | 2018-04-03 20:18 | HP ---
PRIMARY CARE PHYSICIAN: Hipolito Dudley MD. CHIEF COMPLAINT: Chest pressure pain and shortness of breath. HISTORY OF PRESENTING ILLNESS: Ms. Kurtz is a pleasant 63-year-old Afro-[place] female with known history of coronary artery disease, cocaine abuse, COPD, and diabetes, who presented to the ER in outside hospital with the above-mentioned complaint. History is mainly obtained by the patient herself. Electronic medical records have been reviewed and the case has been discussed with admitting ER physician. Ms. Kurtz reports that she ran out of her sublingual nitroglycerin 2 months ago. She started to have symptoms only 2 or 3 days ago. She reports a chest pressure that builds up and does not go away and is associated with mild shortness of breath and some diaphoresis. Initially, she thought that this is gastroesophageal reflux, but it kept coming on even when she has not eaten anything. She got concerned and came to the emergency room. She denies any recent illnesses. She was last admitted to our facility in August 2017 and underwent a cardiac catheterization at that time. She has history of coronary artery disease and bypass graft in 2012. Catheterization in August 2017 showed diffuse atherosclerosis and medical therapy was recommended. The patient has failed to follow up with a postal superintendent, Dr. Smith since then, but reports that she did go and see Dr. Cifuentes for followup for some reason. Please note that the patient was discharged on aspirin, Plavix, statin during her last hospitalization, among others. At this time, she reports compliance with everything except for sublingual nitroglycerin which she ran out of. Please note that the patient is still smoking at least 2 cigarettes a day and on and off cocaine abuse. Her last cocaine use was 3 days ago when she had a visit from her friend. Upon presentation to the ER, she was hemodynamically stable with a blood pressure of 159/71, saturating 93% on room air, pulse is 76. She was found to have mild wheezing on examination and some shortness of breath. She received nebulizers. Further evaluation showed elevation of cardiac enzymes. Initial troponin was 0.088 with repeat troponin of 0.102 and with repeat troponin of 0.150. She received 1 mg/kg of Lovenox along with aspirin and transdermal nitroglycerin, sublingual nitroglycerin and was transferred to our facility for further evaluation and possible admission for non-ST elevation IL. Chest x-ray is clear. She is now being admitted for same. PAST MEDICAL HISTORY: 1. History of coronary artery disease, status post CABG in 2013. 2. Cocaine abuse. 3. Tobacco abuse. 4. Diabetes mellitus type 2. 5. Hypertension. 6. Dyslipidemia. 7. COPD. 8. Peripheral arterial disease. 9. Osteoarthritis. PAST SURGICAL HISTORY: Coronary artery bypass graft in 2012, thyroid surgery to remove goiter, cholecystectomy in 1975, . PSYCHIATRIC HISTORY: Reviewed and negative. FAMILY HISTORY: Hypertension, heart disease run among several family members, diabetes also run among several family members. SOCIAL HISTORY: Smokes 1-2 cigarettes daily. Snorts cocaine infrequently. No alcohol abuse. ALLERGIES: NO KNOWN DRUG ALLERGIES. CURRENT MEDICATIONS: Unknown. Does take metformin and multiple blood pressure medication according to the patient. REVIEW OF SYSTEMS: A 12-point review of system is done and is negative except for those mentioned in the history and physical. CODE STATUS: Full code discussed with the patient. LABORATORY DATA: CBC unremarkable. Serum chemistries; chloride 110, bicarb 20. BNP normal. Cardiac enzymes, troponin as above. Lipase normal. DIAGNOSTIC DATA: Chest x-ray by my review has no evidence to suggest pleural effusion, edema, or infiltrate. A 12-lead EKG shows nonspecific ST and T-wave changes with normal sinus rhythm by my review. PHYSICAL EXAMINATION: VITAL SIGNS: Upon presentation to the emergency room, blood pressure 159/71, pulse is 76, respirations 17, saturating 93% on room air. GENERAL: Lying comfortably in bed. Trying to go to sleep. No acute distress. Awake, alert, and oriented x3. HEENT: Mucous membrane is moist and pink. No oropharyngeal exudate or erythema. Head is normocephalic, atraumatic. Pupils equal, reactive to light and accommodation. Extraocular movement intact. NECK: Supple without any lymphadenopathy, JVD, or bruit. CHEST: Clear to auscultation without any wheezing, rales, or rhonchi. Rate and rhythm regular without any murmurs, rubs, or gallops. ABDOMEN: Obese, soft, nontender, nondistended with positive bowel sounds. EXTREMITIES: Free of any cyanosis, clubbing, or edema. NEUROLOGICAL: Nonfocal. SKIN: Free of any rashes or bruises. Feels warm and dry to touch. PSYCHIATRIC: Normal affect. IMPRESSION AND PLAN: 1. Unstable angina. The patient has known history of coronary artery disease and inoperable atherosclerosis. Medical management was recommended during her last hospitalization. At this time, we will also treat her medically with daily b.i.d. Lovenox at therapeutic dose along with continuation of aspirin. I am not sure if the patient is still taking the Plavix or not. I will restart her on sublingual nitroglycerin and transdermal nitroglycerin as well as isosorbide for her anginal symptoms. At this time, she is hemodynamically stable. We will have Cardiology see her in the morning and perform a transthoracic echocardiogram. 2. Chronic obstructive pulmonary disease, currently well controlled. We will use nebulizers as needed and restart her home medication that includes Symbicort. 3. Hypertension. Restart home medications once confirmed. 4. Dyslipidemia. Restart statin once the dose is confirmed. 5. Diabetes mellitus type 2. Hold metformin while she is in the hospital and start her on insulin sliding scale with frequent Accu-Cheks. 6. Cocaine abuse and tobacco abuse. Extensive counseling has been provided. 7. Code status. Full code discussed with the patient. 8. DVT and GI prophylaxis. DISPOSITION: Ms. Kurtz is currently being admitted to the hospital for unstable angina. ESTIMATED LENGTH OF STAY: At this time is at least 2 to 3 midnights. Further management will depend upon her clinical course. Job ID: [id number]
[2018-04-03] MEDS: Famotidine 20 MG TAB PO SCH ×2 (20:45→20:46)
[2018-04-03] MEDS: Nitroglycerin 2% Ointment 1 INCH/1 GM Packet TOP SCH (20:46)
[2018-04-03] MEDS: Enoxaparin Sodium 60 MG/0.6 ML SYRINGE SC SCH (20:48)
[2018-04-03 21:00] VITALS: BMI 27.9
[2018-04-03] MEDS ORDERED: Nitroglycerin 2% Ointment 1 INCH/1 GM Packet TOP SCH (22:00)
[2018-04-03] MEDS: Nitroglycerin 0.4 MG TAB (25 Tab Bottle) SL PRN ×2 (22:33→23:43)
[2018-04-04 05:14] LABS: #Basophils 0.1 thou/uL (0.0-0.2); #Eosinphils 0.1 thou/uL (0.0-0.7); #Lymphocytes 4.3 thou/uL (1.20-3.40); #Monocytes 0.5 thou/uL (0.11-0.59); #Neutrophils 3.8 thou/uL (1.40-6.50); %Basophils 1.6 % (0.0-1.0); %Eosinophils 1.7 % (0.0-10.0); %Lymphocytes 48.3 % (21.0-51.0); %Monocytes 5.6 % (0.0-10.0); %Neutrophils 42.8 % (42.0-75.0); Hemoglobin 11.9 g/dL (12.0-16.0); Mean Corpuscular HGB CONC 31.6 g/dL (32.0-36.0); Mean Corpuscular Hemoglobin 27.1 pg (27.0-31.0); Mean Corpuscular Volume 85.7 fL (78.0-98.0); Mean Platelet Volume 9.1 fL (7.4-10.4); Platelet Count 229 thou/uL (130-400); RBC Distribution Width 14.5 % (11.5-14.5); White Blood Cell (WBC) Count 8.9 thou/uL (4.8-10.8)
[2018-04-04] MEDS: Nitroglycerin 0.4 MG TAB (25 Tab Bottle) SL PRN ×2 (05:26→23:20)
[2018-04-04] MEDS: Nitroglycerin 2% Ointment 1 INCH/1 GM Packet TOP SCH ×3 (05:27→20:47)
[2018-04-04 05:36] LABS: Anion Gap 10 mmol/L (10-20); BUN (Urea Nitrogen) 13 mg/dL (9.8-20.1); Calc. Creatinine Clearance 90 mL/min (70-130); Carbon Dioxide 24 mmol/L (23-31); Chloride 109 mmol/L (98-107); Estimated GFR-MDRD Greater than 90; Glucose 155 mg/dL (80-115); Potassium 3.4 mmol/L (3.5-5.1); Sodium 140 mmol/L (136-145)
[2018-04-04] MEDS: Mometasone/Formoterol 120 PUFF INHALER INH SCH ×2 (07:23→19:13)
[2018-04-04] MEDS ORDERED: Aspirin 325 MG TAB PO SCH (08:00)
[2018-04-04] MEDS: Enoxaparin Sodium 60 MG/0.6 ML SYRINGE SC SCH ×2 (09:04→20:49)
[2018-04-04] MEDS: Clopidogrel Bisulfate 75 MG TAB PO SCH (09:30)
[2018-04-04] MEDS ORDERED: cloNIDine 0.1 MG TAB PO SCH (09:30)
[2018-04-04] MEDS: HumaLOG 300 UNITS/3 ML VIAL SC PRN (12:59)
--- NOTE | 2018-04-04 15:17 | PDOC.PN ---
- Subjective Encounter Start Date: 04/04/18 Encounter Start Time: 15:15 Subjective: feels well. no more CP/SOB - Objective MAR Reviewed: Yes Vital Signs & Weight: Vital Signs (12 hours) Temp Pulse Resp BP Pulse Ox 04/04/18 11:30 98.0 F 65 17 128/59 L 99 04/04/18 08:09 97.8 F 81 16 166/86 H 100 04/04/18 07:23 65 16 98 04/04/18 04:35 98.2 F 64 22 H 120/57 L 97 Weight Weight 162 lb 12.8 oz I&O: 04/03/18 04/04/18 04/05/18 06:59 06:59 06:59 Intake Total 350 Output Total 300 Balance 50 Result Diagrams: 04/04/18 05:05 04/04/18 05:05 Additional Labs: Accuchecks 04/04/18 04/04/18 04/03/18 12:41 05:46 21:03 POC Glucose 343 H 140 H 162 H Phys Exam - Physical Examination Constitutional: NAD HEENT: PERRLA, moist MMs, sclera anicteric, oral pharynx no lesions Neck: no nodes, no JVD, supple, full ROM Respiratory: no wheezing, no rales, no rhonchi, clear to auscultation bilateral Cardiovascular: RRR, no significant murmur, no rub, irregular Gastrointestinal: soft, non-tender, no distention, positive bowel sounds Musculoskeletal: no edema, pulses present Neurological: non-focal, normal sensation, moves all 4 limbs Psychiatric: normal affect, A&O x 3 Dx/Plan (1) NSTEMI (non-ST elevated myocardial infarction) Code(s): I21.4 - NON-ST ELEVATION (NSTEMI) MYOCARDIAL INFARCTION Status: Acute (2) COPD (chronic obstructive pulmonary disease) Status: Acute (3) Coronary artery disease Code(s): I25.10 - ATHSCL HEART DISEASE OF [place] CORONARY ARTERY W/O ANG PCTRS Status: Acute (4) Diabetes mellitus type 2 in nonobese Code(s): E11.9 - TYPE 2 DIABETES MELLITUS WITHOUT COMPLICATIONS Status: Acute (5) Hypertension Code(s): I10 - ESSENTIAL (PRIMARY) HYPERTENSION Status: Acute (6) Tobacco abuse Code(s): Z72.0 - TOBACCO USE Status: Acute - Plan respiratory therapy, incentive spirometry, DVT proph w/SCDs cont bid lovenox.cont ASa,statin,ARB,BB -: Imdur for aniginal symptoms -: smoking and cocaine cessation highly recommenede -: ECHO pending. Cardiology recs requested * . Review of Systems - Review of Systems Constitutional: negative: fever, chills, sweats, weakness, malaise, other ENT: negative: Ear Pain, Ear Discharge, Nose Pain, Nose Discharge, Nose Congestion, Mouth Pain, Mouth Swelling, Throat Pain, Throat Swelling, Other Respiratory: negative: Cough, Dry, Shortness of Breath, Hemoptysis, SOB with Excertion, Pleuritic Pain, Sputum, Wheezing Cardiovascular: negative: chest pain, palpitations, orthopnea, paroxysmal nocturnal dyspnea, edema, light headedness, other Gastrointestinal: negative: Nausea, Vomiting, Abdominal Pain, Diarrhea, Constipation, Melena, Hematochezia, Other Genitourinary: negative: Dysuria, Frequency, Incontinence, Hematuria, Retention , Other Neurological: negative: Weakness, Numbness, Incoordination, Change in Speech, Confusion, Seizures, Other - Medications/Allergies Allergies/Adverse Reactions: Allergies Allergy/AdvReac Type Severity Reaction Status Date / Time No Known Drug Allergies Allergy Unknown Verified 08/27/17 15:32 Medications: Current Medications Acetaminophen (Tylenol) 650 mg PO Q4H PRN PRN Reason: Headache/Fever/Mild Pain (1-3) Albuterol/Ipratropium (Duoneb) 3 ml NEB [id number] PRN PRN Reason: SOB &/or Wheezing Last Admin: 04/03/18 22:08 Dose: 3 ml Aspirin (Aspirin Chewable) 81 mg PO QAM-WM SAMMY Atorvastatin Calcium (Lipitor) 40 mg PO HS SAMMY Benzonatate (Tessalon) 100 mg PO Q6H PRN PRN Reason: Cough Bisacodyl (Dulcolax) 10 mg PO DAILYPRN PRN PRN Reason: Constipation Clonidine (Catapres) 0.1 mg PO Q4H PRN PRN Reason: SBP > 160____ Last Admin: 04/03/18 22:46 Dose: 0.1 mg Clonidine (Catapres) 0.1 mg PO BID [facility] Clopidogrel Bisulfate (Plavix) 75 mg PO DAILY [facility] Last Admin: 04/04/18 09:30 Dose: 75 mg Dextrose/Water (Dextrose 50%) 25 gm SLOW IVP PRN PRN PRN Reason: Hypoglycemia Enoxaparin Sodium (Lovenox) 60 mg SC 0900,2100 [facility] Last Admin: 04/04/18 09:04 Dose: 60 mg Famotidine (Pepcid) 20 mg PO BID [facility] Last Admin: 04/03/18 20:46 Dose: 20 mg Glucagon (Glucagon) 1 mg IM PRN PRN PRN Reason: Hypoglycemia Hydralazine HCl (Apresoline) 10 mg SLOW IVP Q4H PRN PRN Reason: SBP > 180 and HR < 70 Dextrose/Water (D5w) 1,000 mls @ 0 mls/hr IV .Q0M PRN PRN Reason: Hypoglycemia Insulin Human Lispro (Humalog) 0 units SC .MODERATE SLIDING SC PRN PRN Reason: Moderate Correctional Scale Last Admin: 04/04/18 12:59 Dose: 8 units Insulin Human Lispro (Humalog) 0 units SC .BEDTIME SLIDING SC PRN PRN Reason: Bedtime Correctional Scale Isosorbide Mononitrate (Imdur Er) 30 mg PO DAILY [facility] Last Admin: 04/04/18 09:04 Dose: 30 mg Mometasone Furoate/Formoterol Fumar (Dulera 100 Mcg/5 Mcg Inhaler) 1 puff INH BID-RT [facility] Last Admin: 04/04/18 07:23 Dose: 1 puff Nitroglycerin (Nitrostat) 0.4 mg SL Q5MIN PRN PRN Reason: Chest Pain Last Admin: 04/04/18 05:26 Dose: 0.4 mg Nitroglycerin (Nitro-Bid 2% Ointment) 0.5 inch TOP Q8HR [facility] Last Admin: 04/04/18 14:38 Dose: 0.5 inch Ondansetron HCl (Zofran) 4 mg IVP Q6H PRN PRN Reason: Nausea/Vomiting Senna/Docusate Sodium (Senokot S) 2 tab PO BID PRN PRN Reason: Constipation Sodium Chloride (Flush - Normal Saline) 10 ml IVF Q12HR [facility] Last Admin: 04/04/18 08:18 Dose: 10 ml Sodium Chloride (Flush - Normal Saline) 10 ml IVF PRN PRN PRN Reason: Saline Flush Valsartan (Diovan) 160 mg PO BID SAMMY
[2018-04-04] MEDS: Carvedilol 3.125 MG TAB PO SCH (17:39)
[2018-04-04] MEDS: Valsartan 80 MG TAB PO SCH (20:50)
[2018-04-04] MEDS: Famotidine 20 MG TAB PO SCH (20:51)
[2018-04-04] MEDS: cloNIDine 0.1 MG TAB PO SCH (20:51)
[2018-04-04] MEDS: Atorvastatin Calcium 40 MG TAB PO SCH (20:51)
--- NOTE | 2018-04-05 01:34 | CON ---
DATE OF CONSULTATION: HISTORY OF PRESENT ILLNESS: The patient is a pleasant 63-year-old woman, who presents with recurrent chest discomfort. The patient has a long history of coronary artery disease. She has previously undergone a coronary bypass graft surgery in 2012. She had a MARLOW placed to the LAD, saphenous vein graft to OM and diagonal branch. The patient also has been admitted on several occasions with unstable angina. She most recently underwent a repeat catheterization. In August of this year, she was found to have no lesions amenable to cardiac intervention and has been placed on medical therapy. The patient unfortunately has a long history of substance abuse. She continues to use cocaine and to smoke. The patient states that she presents again with increasing chest discomfort. The patient states she was out of several cardiac medications including aspirin. The patient also ran out of nitroglycerin. She presented to the local emergency room. She received multiple doses of sublingual nitroglycerin and eventually, her chest discomfort resolved. The patient denies having any present chest discomfort. PAST MEDICAL HISTORY: 1. Coronary artery disease. 2. Hypertension. 3. Peripheral vascular disease. 4. GE reflux. PAST SURGICAL HISTORY: Coronary bypass surgery, , and cholecystectomy. MEDICATIONS: See nursing list. ALLERGIES: NO KNOWN DRUG ALLERGIES. SOCIAL HISTORY: The patient continues to use cocaine and smokes several cigarettes a day. FAMILY HISTORY: Positive family history of heart disease. REVIEW OF SYSTEMS: Ten-point systems otherwise unremarkable. PHYSICAL EXAMINATION: GENERAL: Obese woman, in no acute distress. VITAL SIGNS: Blood pressure 166/86. NECK: No jugular venous distention. LUNGS: Clear to auscultation. HEART: Regular rate and rhythm. Normal S1 and S2 with no murmurs. ABDOMEN: Nondistended. EXTREMITIES: Show no edema. SKIN: Warm and dry. NEUROLOGIC: Nonfocal. VASCULAR: Radial pulses are 2+. LABORATORY RESULTS: Her white blood cell count 8.9, hemoglobin 11.9, hematocrit 37.7, platelets 229. Sodium 140, potassium 3.4, chloride 109, bicarb 24, BUN 13 , creatinine 0.73, glucose 155. BNP was 87. EKG revealed her to have normal sinus rhythm with ST-T wave abnormality suggestive of ischemia. IMPRESSION: 1. Unstable angina. 2. History of coronary artery bypass surgery. 3. Hypertension. 4. Diabetes mellitus. 5. Substance abuse. 6. Peripheral vascular disease. 7. Noncompliance. This patient presents with unstable angina. She has been out of her medications and has continued to use cocaine. From a cardiac standpoint, we will treat the patient for several days with subcutaneous Lovenox. I have explained the life threatening consequences of continued noncompliance with her medications and the use of illicit drugs. We will follow this patient with you through her hospitalization. Job ID: [id number] MTDD
[2018-04-05] MEDS: Nitroglycerin 2% Ointment 1 INCH/1 GM Packet TOP SCH ×3 (05:07→21:06)
[2018-04-05 05:29] LABS: Hemoglobin 11.8 g/dL (12.0-16.0); Platelet Count 222 thou/uL (130-400)
[2018-04-05 05:52] LABS: Calc. Creatinine Clearance 91 mL/min (70-130); Estimated GFR-MDRD Greater than 90
[2018-04-05] MEDS: Mometasone/Formoterol 120 PUFF INHALER INH SCH ×2 (07:05→19:02)
[2018-04-05] MEDS: cloNIDine 0.1 MG TAB PO SCH (08:31)
[2018-04-05] MEDS: Clopidogrel Bisulfate 75 MG TAB PO SCH (08:31)
[2018-04-05] MEDS: Carvedilol 3.125 MG TAB PO SCH ×2 (08:31→16:16)
[2018-04-05] MEDS: Enoxaparin Sodium 60 MG/0.6 ML SYRINGE SC SCH ×2 (08:31→21:05)
[2018-04-05] MEDS: Valsartan 80 MG TAB PO SCH ×2 (08:32→21:04)
[2018-04-05] MEDS: Famotidine 20 MG TAB PO SCH ×2 (08:32→21:05)
[2018-04-05] MEDS ORDERED: cloNIDine 0.1 MG TAB PO SCH ×2 (09:05→09:30)
[2018-04-05] MEDS ORDERED: cloNIDine 0.2 MG TAB PO SCH (09:15)
--- NOTE | 2018-04-05 11:28 | PQF ---
CLINICAL DOCUMENTATION IMPROVEMENT CLARIFICATION FORM: ICD-10 Updated PLEASE DO AN ADDENDUM TO THE PROGRESS NOTE WITH ANY DOCUMENTATION UPDATES OR ADDITIONS AND CARRY THROUGH TO DC SUMMARY. THANK YOU. DATE: 04/05/18 ATTN: Dr. Barreto Please exercise your independent, professional judgment in responding to the clarification form. Clinical indicators are provided on the bottom of this form for your review Please check appropriate box(s): [ ] Acute Coronary Syndrome (ACS) without Acute PA meaning Unstable Angina [ X ] NSTEMI [ ] Other diagnosis [ ] Unable to determine In addition, please specify: Present on Admission (POA): [X ] Yes [ ] No [ ] Unable to determine CLINICAL INDICATORS - SIGNS / SYMPTOMS / LABS H&P 04/03: Initial troponin was 0.088 w/ repeat troponin of 0.102 and repeat troponin of 0.150 She received 1mg/kg of Lovenox along w/ aspirin and transdermal nitroglycerin, sublingual nitroglycerin and transferred to our facility for further evaluation Unstable angina. Cardiology 04/04: EKG revealed her to have normal sinus rhythm with ST-T wave abnormality suggestive of ischemia. Unstable angina PN 04/04: NSTEMI (non-ST elevated myocardial infarction). Acute RISKS: H&P: Hx of CAD and bypass graft in 2012. cocaine abuse, COPD, DM. Inoperable atherosclerosis TREATMENT: H&P: Treat her medically with daily bid Lovenox at therapeutic dose along with continuation of aspirin. Thank you, Nadiya (This form is maintained as a part of the permanent medical record) 2015 [employer]. All Rights Reserved Nadiya Ansari RN, [email or web address] Office: [phone] [facility]
--- NOTE | 2018-04-05 14:04 | PDOC.PN ---
- Subjective Encounter Start Date: 04/05/18 Encounter Start Time: 14:03 Subjective: feels well. no more chest pain.no new complaints - Objective MAR Reviewed: Yes Vital Signs & Weight: Vital Signs (12 hours) Temp Pulse Resp BP BP Pulse Ox 04/05/18 11:30 98.1 F 71 19 139/68 100 04/05/18 09:24 151/72 H 04/05/18 08:28 97.1 F L 18 191/88 H 100 04/05/18 07:05 73 16 95 04/05/18 03:19 98.0 F 63 20 150/67 H 97 Weight Weight 166 lb 3.2 oz I&O: 04/04/18 04/05/18 04/06/18 06:59 06:59 06:59 Intake Total 350 938 Output Total 300 200 Balance 50 738 Result Diagrams: 04/05/18 05:20 04/05/18 05:20 Additional Labs: Accuchecks 04/05/18 04/05/18 04/04/18 10:57 05:15 20:25 POC Glucose 122 H 180 H 192 H 04/04/18 16:39 POC Glucose 136 H Phys Exam - Physical Examination Constitutional: NAD HEENT: PERRLA, moist MMs, sclera anicteric, oral pharynx no lesions Neck: no nodes, no JVD, supple, full ROM Respiratory: no wheezing, no rales, no rhonchi, clear to auscultation bilateral Cardiovascular: RRR, no significant murmur, no rub Gastrointestinal: soft, non-tender, no distention, positive bowel sounds Musculoskeletal: no edema, pulses present Neurological: non-focal, normal sensation, moves all 4 limbs Psychiatric: normal affect, A&O x 3 Skin: no rash Dx/Plan (1) NSTEMI (non-ST elevated myocardial infarction) Code(s): I21.4 - NON-ST ELEVATION (NSTEMI) MYOCARDIAL INFARCTION Status: Acute Comment: Lovenox BID.Satrted on ASA,statin,BB,Imdur,ARB,Plavix (2) COPD (chronic obstructive pulmonary disease) Status: Acute (3) Coronary artery disease Code(s): I25.10 - ATHSCL HEART DISEASE OF [place] CORONARY ARTERY W/O ANG PCTRS Status: Acute Comment: inoperable disease.Medical management (4) Diabetes mellitus type 2 in nonobese Code(s): E11.9 - TYPE 2 DIABETES MELLITUS WITHOUT COMPLICATIONS Status: Acute (5) Hypertension Code(s): I10 - ESSENTIAL (PRIMARY) HYPERTENSION Status: Acute (6) Tobacco abuse Code(s): Z72.0 - TOBACCO USE Status: Acute - Plan DVT proph w/SCDs cont BID lovenox for another 24 hours or as per cardiology. -: started on appropriate cardiac meds.compliance encouraged -: HD stable. -: DC home next 24 hours * . Review of Systems - Review of Systems Constitutional: negative: fever, chills, sweats, weakness, malaise, other ENT: negative: Ear Pain, Ear Discharge, Nose Pain, Nose Discharge, Nose Congestion, Mouth Pain, Mouth Swelling, Throat Pain, Throat Swelling, Other Respiratory: negative: Cough, Dry, Shortness of Breath, Hemoptysis, SOB with Excertion, Pleuritic Pain, Sputum, Wheezing Cardiovascular: negative: chest pain, palpitations, orthopnea, paroxysmal nocturnal dyspnea, edema, light headedness, other Gastrointestinal: negative: Nausea, Vomiting, Abdominal Pain, Diarrhea, Constipation, Melena, Hematochezia, Other Genitourinary: negative: Dysuria, Frequency, Incontinence, Hematuria, Retention , Other Musculoskeletal: negative: Neck Pain, Shoulder Pain, Arm Pain, Back Pain, Hand Pain, Leg Pain, Foot Pain, Other Neurological: negative: Weakness, Numbness, Incoordination, Change in Speech, Confusion, Seizures, Other - Medications/Allergies Allergies/Adverse Reactions: Allergies Allergy/AdvReac Type Severity Reaction Status Date / Time No Known Drug Allergies Allergy Unknown Verified 08/27/17 15:32 Medications: Current Medications Acetaminophen (Tylenol) 650 mg PO Q4H PRN PRN Reason: Headache/Fever/Mild Pain (1-3) Albuterol/Ipratropium (Duoneb) 3 ml NEB [id number] PRN PRN Reason: SOB &/or Wheezing Last Admin: 04/03/18 22:08 Dose: 3 ml Aspirin (Aspirin Chewable) 81 mg PO QAM-WM [facility] Last Admin: 04/05/18 08:31 Dose: 81 mg Atorvastatin Calcium (Lipitor) 40 mg PO HS [facility] Last Admin: 04/04/18 20:51 Dose: 40 mg Benzonatate (Tessalon) 100 mg PO Q6H PRN PRN Reason: Cough Bisacodyl (Dulcolax) 10 mg PO DAILYPRN PRN PRN Reason: Constipation Carvedilol (Coreg) 3.125 mg PO BID-[facility] Last Admin: 04/05/18 08:31 Dose: 3.125 mg Clonidine (Catapres) 0.1 mg PO Q4H PRN PRN Reason: SBP > 160____ Last Admin: 04/03/18 22:46 Dose: 0.1 mg Clonidine (Catapres) 0.2 mg PO BID [facility] Clopidogrel Bisulfate (Plavix) 75 mg PO DAILY [facility] Last Admin: 04/05/18 08:31 Dose: 75 mg Dextrose/Water (Dextrose 50%) 25 gm SLOW IVP PRN PRN PRN Reason: Hypoglycemia Enoxaparin Sodium (Lovenox) 60 mg SC 0900,2100 [facility] Last Admin: 04/05/18 08:31 Dose: 60 mg Famotidine (Pepcid) 20 mg PO BID [facility] Last Admin: 04/05/18 08:32 Dose: 20 mg Glucagon (Glucagon) 1 mg IM PRN PRN PRN Reason: Hypoglycemia Hydralazine HCl (Apresoline) 10 mg SLOW IVP Q4H PRN PRN Reason: SBP > 180 and HR < 70 Dextrose/Water (D5w) 1,000 mls @ 0 mls/hr IV .Q0M PRN PRN Reason: Hypoglycemia Insulin Human Lispro (Humalog) 0 units SC .MODERATE SLIDING SC PRN PRN Reason: Moderate Correctional Scale Last Admin: 04/04/18 12:59 Dose: 8 units Insulin Human Lispro (Humalog) 0 units SC .BEDTIME SLIDING SC PRN PRN Reason: Bedtime Correctional Scale Isosorbide Mononitrate (Imdur) 60 mg PO DAILY [facility] Mometasone Furoate/Formoterol Fumar (Dulera 100 Mcg/5 Mcg Inhaler) 1 puff INH BID-RT [facility] Last Admin: 04/05/18 07:05 Dose: 1 puff Nitroglycerin (Nitrostat) 0.4 mg SL Q5MIN PRN PRN Reason: Chest Pain Last Admin: 04/04/18 23:20 Dose: 0.4 mg Nitroglycerin (Nitro-Bid 2% Ointment) 0.5 inch TOP Q8HR [facility] Last Admin: 04/05/18 05:07 Dose: 0.5 inch Ondansetron HCl (Zofran) 4 mg IVP Q6H PRN PRN Reason: Nausea/Vomiting Senna/Docusate Sodium (Senokot S) 2 tab PO BID PRN PRN Reason: Constipation Sodium Chloride (Flush - Normal Saline) 10 ml IVF Q12HR [facility] Last Admin: 04/05/18 08:31 Dose: Not Given Sodium Chloride (Flush - Normal Saline) 10 ml IVF PRN PRN PRN Reason: Saline Flush Valsartan (Diovan) 160 mg PO BID [facility] Last Admin: 04/05/18 08:32 Dose: 160 mg
[2018-04-05] MEDS ORDERED: Furosemide 20 MG/2 ML VIAL SLOW IVP SCH (15:00)
[2018-04-05] MEDS: HumaLOG 300 UNITS/3 ML VIAL SC PRN (17:17)
[2018-04-05] MEDS: cloNIDine 0.2 MG TAB PO SCH (21:04)
[2018-04-05] MEDS: Atorvastatin Calcium 40 MG TAB PO SCH (21:04)
[2018-04-06] MEDS: Nitroglycerin 0.4 MG TAB (25 Tab Bottle) SL PRN ×5 (03:22→08:56)
[2018-04-06] MEDS: Nitroglycerin 2% Ointment 1 INCH/1 GM Packet TOP SCH ×3 (06:48→22:02)
[2018-04-06] MEDS: Mometasone/Formoterol 120 PUFF INHALER INH SCH ×2 (07:10→19:11)
[2018-04-06] MEDS: Carvedilol 3.125 MG TAB PO SCH ×2 (09:39→16:27)
[2018-04-06] MEDS: Valsartan 80 MG TAB PO SCH ×2 (09:39→20:15)
[2018-04-06] MEDS: cloNIDine 0.2 MG TAB PO SCH ×2 (09:40→20:17)
[2018-04-06] MEDS: Famotidine 20 MG TAB PO SCH ×2 (09:40→20:14)
[2018-04-06] MEDS: HumaLOG 300 UNITS/3 ML VIAL SC PRN (09:41)
[2018-04-06] MEDS: Bisacodyl 5 MG TAB PO PRN (09:41)
[2018-04-06] MEDS: Clopidogrel Bisulfate 75 MG TAB PO SCH (09:41)
[2018-04-06] MEDS: Enoxaparin Sodium 60 MG/0.6 ML SYRINGE SC SCH ×2 (09:42→20:17)
--- NOTE | 2018-04-06 13:31 | PDOC.PN ---
- Subjective Encounter Start Date: 04/06/18 Encounter Start Time: 13:27 Subjective: on and off chest pain w diaphoresis and SOB - Objective MAR Reviewed: Yes Vital Signs & Weight: Vital Signs (12 hours) Temp Pulse Resp BP BP Pulse Ox 04/06/18 12:21 98 F 62 18 117/57 L 99 04/06/18 11:09 69 16 98 04/06/18 09:40 155/75 H 04/06/18 07:52 97.8 F 64 18 172/77 H 100 04/06/18 07:13 100 04/06/18 07:12 68 16 100 04/06/18 07:10 58 L 16 100 04/06/18 04:34 97.8 F 68 19 139/68 100 04/06/18 03:58 67 16 98 Weight Weight 166 lb 3.2 oz I&O: 04/05/18 04/06/18 04/07/18 06:59 06:59 06:59 Intake Total 938 1440 Output Total 200 500 Balance 738 940 Result Diagrams: 04/05/18 05:20 04/05/18 05:20 Additional Labs: Accuchecks 04/06/18 04/06/18 04/05/18 10:47 05:56 21:03 POC Glucose 133 H 186 H 256 H 04/05/18 16:34 POC Glucose 179 H Phys Exam - Physical Examination anxious appearing.lying in bed HEENT: PERRLA, moist MMs, sclera anicteric, oral pharynx no lesions Neck: no nodes, no JVD, supple, full ROM Respiratory: no wheezing, no rales, no rhonchi Cardiovascular: RRR, no significant murmur Gastrointestinal: soft, non-tender, no distention, positive bowel sounds Musculoskeletal: no edema, pulses present Neurological: non-focal, normal sensation, moves all 4 limbs Psychiatric: normal affect, A&O x 3 Skin: no rash Dx/Plan (1) NSTEMI (non-ST elevated myocardial infarction) Code(s): I21.4 - NON-ST ELEVATION (NSTEMI) MYOCARDIAL INFARCTION Status: Acute Comment: Lovenox BID.Satrted on ASA,statin,BB,Imdur,ARB,Plavix (2) COPD (chronic obstructive pulmonary disease) Status: Acute (3) Coronary artery disease Code(s): I25.10 - ATHSCL HEART DISEASE OF [place] CORONARY ARTERY W/O ANG PCTRS Status: Acute Comment: inoperable disease.Medical management (4) Diabetes mellitus type 2 in nonobese Code(s): E11.9 - TYPE 2 DIABETES MELLITUS WITHOUT COMPLICATIONS Status: Acute (5) Hypertension Code(s): I10 - ESSENTIAL (PRIMARY) HYPERTENSION Status: Acute (6) Tobacco abuse Code(s): Z72.0 - TOBACCO USE Status: Acute - Plan DVT proph w/SCDs pt olinda having Unstable angina.unfortunately she has inoperable Dz -: will cont symptom management & anti thrombotic Rx w BID lovenox -: PRN SubLingual NG -: Hd stable.ECHO stable. -: imdur increased yesterday.monitor.cardiology also following * . Review of Systems - Review of Systems Constitutional: negative: fever, chills, sweats, weakness, malaise, other ENT: negative: Ear Pain, Ear Discharge, Nose Pain, Nose Discharge, Nose Congestion, Mouth Pain, Mouth Swelling, Throat Pain, Throat Swelling, Other Respiratory: SOB with Excertion. negative: Cough, Dry, Shortness of Breath, Hemoptysis, Pleuritic Pain, Sputum, Wheezing Cardiovascular: chest pain. negative: palpitations, orthopnea, paroxysmal nocturnal dyspnea, edema, light headedness, other Gastrointestinal: negative: Nausea, Vomiting, Abdominal Pain, Diarrhea, Constipation, Melena, Hematochezia, Other Genitourinary: negative: Dysuria, Frequency, Incontinence, Hematuria, Retention , Other Neurological: negative: Weakness, Numbness, Incoordination, Change in Speech, Confusion, Seizures, Other - Medications/Allergies Allergies/Adverse Reactions: Allergies Allergy/AdvReac Type Severity Reaction Status Date / Time No Known Drug Allergies Allergy Unknown Verified 08/27/17 15:32 Medications: Current Medications Acetaminophen (Tylenol) 650 mg PO Q4H PRN PRN Reason: Headache/Fever/Mild Pain (1-3) Albuterol/Ipratropium (Duoneb) 3 ml NEB [id number] PRN PRN Reason: SOB &/or Wheezing Last Admin: 04/06/18 11:09 Dose: 3 ml Aspirin (Aspirin Chewable) 81 mg PO QAM-[facility] Last Admin: 04/06/18 09:40 Dose: 81 mg Atorvastatin Calcium (Lipitor) 40 mg PO HS [facility] Last Admin: 04/05/18 21:04 Dose: 40 mg Benzonatate (Tessalon) 100 mg PO Q6H PRN PRN Reason: Cough Bisacodyl (Dulcolax) 10 mg PO DAILYPRN PRN PRN Reason: Constipation Last Admin: 04/06/18 09:41 Dose: 10 mg Carvedilol (Coreg) 3.125 mg PO BID-[facility] Last Admin: 04/06/18 09:39 Dose: 3.125 mg Clonidine (Catapres) 0.1 mg PO Q4H PRN PRN Reason: SBP > 160____ Last Admin: 04/03/18 22:46 Dose: 0.1 mg Clonidine (Catapres) 0.2 mg PO BID [facility] Last Admin: 04/06/18 09:40 Dose: 0.2 mg Clopidogrel Bisulfate (Plavix) 75 mg PO DAILY [facility] Last Admin: 04/06/18 09:41 Dose: 75 mg Dextrose/Water (Dextrose 50%) 25 gm SLOW IVP PRN PRN PRN Reason: Hypoglycemia Enoxaparin Sodium (Lovenox) 60 mg SC 0900,2100 [facility] Last Admin: 04/06/18 09:42 Dose: 60 mg Famotidine (Pepcid) 20 mg PO BID [facility] Last Admin: 04/06/18 09:40 Dose: 20 mg Glucagon (Glucagon) 1 mg IM PRN PRN PRN Reason: Hypoglycemia Hydralazine HCl (Apresoline) 10 mg SLOW IVP Q4H PRN PRN Reason: SBP > 180 and HR < 70 Dextrose/Water (D5w) 1,000 mls @ 0 mls/hr IV .Q0M PRN PRN Reason: Hypoglycemia Insulin Human Lispro (Humalog) 0 units SC .MODERATE SLIDING SC PRN PRN Reason: Moderate Correctional Scale Last Admin: 04/06/18 09:41 Dose: 2 units Insulin Human Lispro (Humalog) 0 units SC .BEDTIME SLIDING SC PRN PRN Reason: Bedtime Correctional Scale Last Admin: 04/05/18 21:05 Dose: 2 unit Isosorbide Mononitrate (Imdur) 60 mg PO DAILY [facility] Last Admin: 04/06/18 09:40 Dose: 60 mg Mometasone Furoate/Formoterol Fumar (Dulera 100 Mcg/5 Mcg Inhaler) 1 puff INH BID-RT [facility] Last Admin: 04/06/18 07:10 Dose: 1 puff Nitroglycerin (Nitrostat) 0.4 mg SL Q5MIN PRN PRN Reason: Chest Pain Last Admin: 04/06/18 08:56 Dose: 0.4 mg Nitroglycerin (Nitro-Bid 2% Ointment) 0.5 inch TOP Q8HR [facility] Last Admin: 04/06/18 06:48 Dose: 0.5 inch Ondansetron HCl (Zofran) 4 mg IVP Q6H PRN PRN Reason: Nausea/Vomiting Senna/Docusate Sodium (Senokot S) 2 tab PO BID PRN PRN Reason: Constipation Sodium Chloride (Flush - Normal Saline) 10 ml IVF Q12HR [facility] Last Admin: 04/06/18 09:41 Dose: 10 ml Sodium Chloride (Flush - Normal Saline) 10 ml IVF PRN PRN PRN Reason: Saline Flush Valsartan (Diovan) 160 mg PO BID [facility] Last Admin: 04/06/18 09:39 Dose: 160 mg
[2018-04-06] MEDS: Atorvastatin Calcium 40 MG TAB PO SCH (20:14)
--- NOTE | 2018-04-06 23:00 | EKG ---
Test Reason : CP Blood Pressure : / mmHG Vent. Rate : 062 BPM Atrial Rate : 062 BPM P-R Int : 128 ms QRS Dur : 090 ms QT Int : 422 ms P-R-T Axes : 056 043 097 degrees QTc Int : 428 ms Sinus rhythm with occasional Premature ventricular complexes Possible Left atrial enlargement Nonspecific ST and T wave abnormality Abnormal ECG Confirmed by ALISON MELTON, EDIN ([id number]), deputy editor in chief JESÚS ROSENBERG ([id number]) on 04/06/2018 10:59:19 PM Referred By: Confirmed By:EDIN ROSAS MD
[2018-04-07] MEDS: Nitroglycerin 2% Ointment 1 INCH/1 GM Packet TOP SCH ×3 (05:37→21:14)
[2018-04-07 05:43] LABS: Hemoglobin 12.3 g/dL (12.0-16.0); Platelet Count 220 thou/uL (130-400)
[2018-04-07] MEDS: Nitroglycerin 0.4 MG TAB (25 Tab Bottle) SL PRN (06:40)
[2018-04-07] MEDS: Mometasone/Formoterol 120 PUFF INHALER INH SCH ×2 (07:13→19:43)
[2018-04-07] MEDS: ALPRAZolam 0.25 MG TAB PO PRN ×2 (08:23→21:09)
[2018-04-07] MEDS: cloNIDine 0.2 MG TAB PO SCH ×2 (08:24→21:13)
[2018-04-07] MEDS: Clopidogrel Bisulfate 75 MG TAB PO SCH (08:24)
[2018-04-07] MEDS: Valsartan 80 MG TAB PO SCH ×2 (08:24→21:08)
[2018-04-07] MEDS: Carvedilol 3.125 MG TAB PO SCH ×2 (08:24→16:09)
[2018-04-07] MEDS: Enoxaparin Sodium 60 MG/0.6 ML SYRINGE SC SCH ×2 (08:25→21:09)
[2018-04-07] MEDS: Famotidine 20 MG TAB PO SCH ×2 (08:25→21:09)
--- NOTE | 2018-04-07 13:04 | PDOC.PN ---
- Subjective Encounter Start Date: 04/07/18 Encounter Start Time: 13:02 Subjective: feels weak and scared.no more chest pain since yesterday,no SOB - Objective MAR Reviewed: Yes Vital Signs & Weight: Vital Signs (12 hours) Temp Pulse Resp BP Pulse Ox 04/07/18 11:14 98.2 F 68 18 108/58 L 97 04/07/18 10:25 64 16 98 04/07/18 07:52 97.9 F 65 18 142/67 H 99 04/07/18 07:16 66 16 96 04/07/18 07:13 66 16 04/07/18 04:00 98.2 F 70 18 144/66 H 97 04/07/18 03:45 96 Weight Weight 166 lb I&O: 04/06/18 04/07/18 04/08/18 06:59 06:59 06:59 Intake Total 1440 1170 Output Total 500 1225 Balance 940 -55 Result Diagrams: 04/07/18 05:27 04/07/18 05:27 Additional Labs: Accuchecks 04/07/18 04/07/18 04/06/18 10:56 05:31 20:23 POC Glucose 154 H 145 H 196 H 04/06/18 16:47 POC Glucose 168 H Phys Exam - Physical Examination Constitutional: NAD HEENT: PERRLA, moist MMs, sclera anicteric, oral pharynx no lesions Neck: no nodes, no JVD, supple, full ROM Respiratory: no wheezing, no rales, no rhonchi, clear to auscultation bilateral Cardiovascular: RRR, no significant murmur Gastrointestinal: soft, non-tender, no distention, positive bowel sounds Musculoskeletal: no edema, pulses present Neurological: non-focal, normal sensation, moves all 4 limbs Psychiatric: normal affect, A&O x 3 Skin: no rash Dx/Plan (1) NSTEMI (non-ST elevated myocardial infarction) Code(s): I21.4 - NON-ST ELEVATION (NSTEMI) MYOCARDIAL INFARCTION Status: Acute Comment: Lovenox BID.Started on ASA,statin,BB,Imdur,ARB,Plavix (2) COPD (chronic obstructive pulmonary disease) Status: Acute (3) Coronary artery disease Code(s): I25.10 - ATHSCL HEART DISEASE OF [place] CORONARY ARTERY W/O ANG PCTRS Status: Acute Comment: inoperable disease.Medical management (4) Diabetes mellitus type 2 in nonobese Code(s): E11.9 - TYPE 2 DIABETES MELLITUS WITHOUT COMPLICATIONS Status: Acute (5) Hypertension Code(s): I10 - ESSENTIAL (PRIMARY) HYPERTENSION Status: Acute (6) Tobacco abuse Code(s): Z72.0 - TOBACCO USE Status: Acute - Plan DVT proph w/SCDs cont medical management.inoperable cardiac disease. -: optimize symptoms and likley DC robe ein am -: cardiology recs * . Review of Systems - Review of Systems Constitutional: weakness, malaise. negative: fever, chills, sweats, other ENT: negative: Ear Pain, Ear Discharge, Nose Pain, Nose Discharge, Nose Congestion, Mouth Pain, Mouth Swelling, Throat Pain, Throat Swelling, Other Respiratory: negative: Cough, Dry, Shortness of Breath, Hemoptysis, SOB with Excertion, Pleuritic Pain, Sputum, Wheezing Cardiovascular: negative: chest pain, palpitations, orthopnea, paroxysmal nocturnal dyspnea, edema, light headedness, other Gastrointestinal: negative: Nausea, Vomiting, Abdominal Pain, Diarrhea, Constipation, Melena, Hematochezia, Other Genitourinary: negative: Dysuria, Frequency, Incontinence, Hematuria, Retention , Other Musculoskeletal: negative: Neck Pain, Shoulder Pain, Arm Pain, Back Pain, Hand Pain, Leg Pain, Foot Pain, Other Neurological: negative: Weakness, Numbness, Incoordination, Change in Speech, Confusion, Seizures, Other - Medications/Allergies Allergies/Adverse Reactions: Allergies Allergy/AdvReac Type Severity Reaction Status Date / Time No Known Drug Allergies Allergy Unknown Verified 08/27/17 15:32 Medications: Current Medications Acetaminophen (Tylenol) 650 mg PO Q4H PRN PRN Reason: Headache/Fever/Mild Pain (1-3) Albuterol/Ipratropium (Duoneb) 3 ml NEB [id number] [facility] Last Admin: 04/07/18 10:25 Dose: 3 ml Alprazolam (Xanax) 0.25 mg PO TIDPRN PRN PRN Reason: Anxiety Last Admin: 04/07/18 08:23 Dose: 0.25 mg Aspirin (Aspirin Chewable) 81 mg PO QAM-WM [facility] Last Admin: 04/07/18 08:24 Dose: 81 mg Atorvastatin Calcium (Lipitor) 40 mg PO HS [facility] Last Admin: 04/06/18 20:14 Dose: 40 mg Benzonatate (Tessalon) 100 mg PO Q6H PRN PRN Reason: Cough Bisacodyl (Dulcolax) 10 mg PO DAILYPRN PRN PRN Reason: Constipation Last Admin: 04/06/18 09:41 Dose: 10 mg Carvedilol (Coreg) 3.125 mg PO BID-[facility] Last Admin: 04/07/18 08:24 Dose: 3.125 mg Clonidine (Catapres) 0.1 mg PO Q4H PRN PRN Reason: SBP > 160____ Last Admin: 04/03/18 22:46 Dose: 0.1 mg Clonidine (Catapres) 0.2 mg PO BID [facility] Last Admin: 04/07/18 08:24 Dose: 0.2 mg Clopidogrel Bisulfate (Plavix) 75 mg PO DAILY [facility] Last Admin: 04/07/18 08:24 Dose: 75 mg Dextrose/Water (Dextrose 50%) 25 gm SLOW IVP PRN PRN PRN Reason: Hypoglycemia Enoxaparin Sodium (Lovenox) 60 mg SC 0900,2100 [facility] Last Admin: 04/07/18 08:25 Dose: 60 mg Famotidine (Pepcid) 20 mg PO BID [facility] Last Admin: 04/07/18 08:25 Dose: 20 mg Glucagon (Glucagon) 1 mg IM PRN PRN PRN Reason: Hypoglycemia Hydralazine HCl (Apresoline) 10 mg SLOW IVP Q4H PRN PRN Reason: SBP > 180 and HR < 70 Dextrose/Water (D5w) 1,000 mls @ 0 mls/hr IV .Q0M PRN PRN Reason: Hypoglycemia Insulin Human Lispro (Humalog) 0 units SC .MODERATE SLIDING SC PRN PRN Reason: Moderate Correctional Scale Last Admin: 04/06/18 09:41 Dose: 2 units Insulin Human Lispro (Humalog) 0 units SC .BEDTIME SLIDING SC PRN PRN Reason: Bedtime Correctional Scale Last Admin: 04/05/18 21:05 Dose: 2 unit Isosorbide Mononitrate (Imdur) 60 mg PO DAILY [facility] Last Admin: 04/07/18 08:24 Dose: 60 mg Mometasone Furoate/Formoterol Fumar (Dulera 100 Mcg/5 Mcg Inhaler) 1 puff INH BID-RT [facility] Last Admin: 04/07/18 07:13 Dose: 1 puff Nitroglycerin (Nitrostat) 0.4 mg SL Q5MIN PRN PRN Reason: Chest Pain Last Admin: 04/07/18 06:40 Dose: 0.4 mg Nitroglycerin (Nitro-Bid 2% Ointment) 0.5 inch TOP Q8HR [facility] Last Admin: 04/07/18 05:37 Dose: 0.5 inch Ondansetron HCl (Zofran) 4 mg IVP Q6H PRN PRN Reason: Nausea/Vomiting Senna/Docusate Sodium (Senokot S) 2 tab PO BID PRN PRN Reason: Constipation Last Admin: 04/06/18 22:08 Dose: 2 tab Sodium Chloride (Flush - Normal Saline) 10 ml IVF Q12HR [facility] Last Admin: 04/07/18 08:23 Dose: 10 ml Sodium Chloride (Flush - Normal Saline) 10 ml IVF PRN PRN PRN Reason: Saline Flush Valsartan (Diovan) 160 mg PO BID [facility] Last Admin: 04/07/18 08:24 Dose: 160 mg
[2018-04-07] MEDS: HumaLOG 300 UNITS/3 ML VIAL SC PRN (17:57)
[2018-04-07] MEDS: Atorvastatin Calcium 40 MG TAB PO SCH (21:08)
[2018-04-08] MEDS: Nitroglycerin 0.4 MG TAB (25 Tab Bottle) SL PRN ×4 (01:45→08:26)
[2018-04-08] MEDS: ALPRAZolam 0.25 MG TAB PO PRN ×2 (01:52→20:34)
[2018-04-08] MEDS: Nitroglycerin 2% Ointment 1 INCH/1 GM Packet TOP SCH ×3 (05:52→22:40)
[2018-04-08] MEDS: Mometasone/Formoterol 120 PUFF INHALER INH SCH ×2 (07:12→20:53)
[2018-04-08] MEDS: cloNIDine 0.2 MG TAB PO SCH ×2 (08:30→20:35)
[2018-04-08] MEDS: Valsartan 80 MG TAB PO SCH ×2 (08:30→20:34)
[2018-04-08] MEDS: Clopidogrel Bisulfate 75 MG TAB PO SCH (08:30)
[2018-04-08] MEDS: Carvedilol 3.125 MG TAB PO SCH ×2 (08:30→16:13)
[2018-04-08] MEDS: Famotidine 20 MG TAB PO SCH ×2 (08:30→20:35)
[2018-04-08] MEDS: Enoxaparin Sodium 60 MG/0.6 ML SYRINGE SC SCH ×2 (08:31→20:34)
[2018-04-08] MEDS ORDERED: Morphine 2 MG/ML SYRINGE SLOW IVP SCH (09:00)
[2018-04-08] MEDS: HumaLOG 300 UNITS/3 ML VIAL SC PRN ×2 (09:30→12:03)
[2018-04-08 09:41] LABS: CKMB 0.7 ng/mL (0-6.6); Troponin I 0.022 ng/mL (< 0.028)
--- NOTE | 2018-04-08 15:09 | PQF ---
CLINICAL DOCUMENTATION IMPROVEMENT CLARIFICATION FORM: ICD-10 Updated PLEASE DO AN ADDENDUM TO THE PROGRESS NOTE WITH ANY DOCUMENTATION UPDATES OR ADDITIONS AND CARRY THROUGH TO DC SUMMARY. THANK YOU. DATE: 04/08/18; 04/09/18 ATTN: Dr. Quintanilla Please exercise your independent, professional judgment in responding to the clarification form. Clinical indicators are provided on the bottom of this form for your review Please check appropriate box(s): [ ] Acute exacerbation of COPD [ ] COPD Chronic and stable [ ] Other diagnosis [ ] Unable to determine In addition, please specify: Present on Admission (POA): [ ] Yes [ ] No [ ] Unable to determine For continuity of documentation, please document condition throughout progress notes and discharge summary. Thank You. CLINICAL INDICATORS - SIGNS / SYMPTOMS / LABS H&P 04/03: Chronic obstructive pulmonary disease, currently well controlled. PN 04/04 - 04/07: COPD. ACUTE RISKS: H&P 04/03: Hx of cad, cocaine abuse, COPD, DM. Smokes 1-2 cigarettes daily TREATMENT: Order 04/06: Duoneb 3 ml NEB Q4 hr Order 04/13: Resp: O2 to keep sats 95% Thank you, Nadiya (This form is maintained as a part of the permanent medical record) 2014 [employer]. All Rights Reserved Nadiya Ansari RN, BSN [email or web address] Office: [phone] [facility]
--- NOTE | 2018-04-08 15:41 | PDOC.PN ---
- Subjective Encounter Start Date: 04/08/18 Encounter Start Time: 08:20 Pt seen for followup re: unstable angina. Had chest pain earlier. - Objective MAR Reviewed: Yes Vital Signs & Weight: Vital Signs (12 hours) Temp Pulse Resp BP Pulse Ox 04/08/18 14:07 70 12 04/08/18 11:56 97.6 F 67 18 119/57 L 97 04/08/18 11:09 70 14 04/08/18 07:35 97.8 F 72 20 156/72 H 100 04/08/18 07:12 80 14 04/08/18 04:00 97 04/08/18 03:45 79 18 124/70 100 Weight Weight 168 lb 9.6 oz I&O: 04/07/18 04/08/18 04/09/18 06:59 06:59 06:59 Intake Total 1170 1090 Output Total 1225 700 Balance -55 390 Result Diagrams: 04/07/18 05:27 04/07/18 05:27 Additional Labs: Accuchecks 04/08/18 04/08/18 04/07/18 11:17 05:35 20:22 POC Glucose 202 H 165 H 211 H 04/07/18 16:47 POC Glucose 188 H EKG Reviewed by me: Yes (Tele: NSR) Phys Exam - Physical Examination Constitutional: NAD HEENT: moist MMs Neck: supple Respiratory: clear to auscultation bilateral Cardiovascular: RRR Gastrointestinal: soft Neurological: moves all 4 limbs Psychiatric: normal affect Dx/Plan (1) Unstable angina Status: Acute Comment: continue BID Lovenox, ASA, statin, BB, Imdur, ARB and Plavix (2) Diabetes mellitus type 2 in nonobese Code(s): E11.9 - TYPE 2 DIABETES MELLITUS WITHOUT COMPLICATIONS Status: Chronic Comment: continue accuchecks, insulin sliding scale (3) Hypertension Code(s): I10 - ESSENTIAL (PRIMARY) HYPERTENSION Status: Chronic Comment: controlled - Plan * . Review of Systems - Review of Systems Respiratory: negative: Cough, Shortness of Breath, SOB with Excertion, Pleuritic Pain, Wheezing Cardiovascular: chest pain. negative: palpitations, orthopnea, paroxysmal nocturnal dyspnea, edema, light headedness - Medications/Allergies Allergies/Adverse Reactions: Allergies Allergy/AdvReac Type Severity Reaction Status Date / Time No Known Drug Allergies Allergy Unknown Verified 08/27/17 15:32 Medications: Current Medications Acetaminophen (Tylenol) 650 mg PO Q4H PRN PRN Reason: Headache/Fever/Mild Pain (1-3) Albuterol/Ipratropium (Duoneb) 3 ml NEB [id number] [facility] Last Admin: 04/08/18 14:07 Dose: 3 ml Alprazolam (Xanax) 0.25 mg PO TIDPRN PRN PRN Reason: Anxiety Last Admin: 04/08/18 01:52 Dose: 0.25 mg Aspirin (Aspirin Chewable) 81 mg PO QAM-[facility] Last Admin: 04/08/18 08:29 Dose: 81 mg Atorvastatin Calcium (Lipitor) 40 mg PO [facility] Last Admin: 04/07/18 21:08 Dose: 40 mg Benzonatate (Tessalon) 100 mg PO Q6H PRN PRN Reason: Cough Bisacodyl (Dulcolax) 10 mg PO DAILYPRN PRN PRN Reason: Constipation Last Admin: 04/06/18 09:41 Dose: 10 mg Carvedilol (Coreg) 3.125 mg PO BID-[facility] Last Admin: 04/08/18 08:30 Dose: 3.125 mg Clonidine (Catapres) 0.1 mg PO Q4H PRN PRN Reason: SBP > 160____ Last Admin: 04/03/18 22:46 Dose: 0.1 mg Clonidine (Catapres) 0.2 mg PO BID [facility] Last Admin: 04/08/18 08:30 Dose: 0.2 mg Clopidogrel Bisulfate (Plavix) 75 mg PO DAILY [facility] Last Admin: 04/08/18 08:30 Dose: 75 mg Dextrose/Water (Dextrose 50%) 25 gm SLOW IVP PRN PRN PRN Reason: Hypoglycemia Enoxaparin Sodium (Lovenox) 60 mg SC 0900,2100 [facility] Last Admin: 04/08/18 08:31 Dose: 60 mg Famotidine (Pepcid) 20 mg PO BID [facility] Last Admin: 04/08/18 08:30 Dose: 20 mg Glucagon (Glucagon) 1 mg IM PRN PRN PRN Reason: Hypoglycemia Hydralazine HCl (Apresoline) 10 mg SLOW IVP Q4H PRN PRN Reason: SBP > 180 and HR < 70 Dextrose/Water (D5w) 1,000 mls @ 0 mls/hr IV .Q0M PRN PRN Reason: Hypoglycemia Insulin Human Lispro (Humalog) 0 units SC .MODERATE SLIDING SC PRN PRN Reason: Moderate Correctional Scale Last Admin: 04/08/18 12:03 Dose: 4 units Insulin Human Lispro (Humalog) 0 units SC .BEDTIME SLIDING SC PRN PRN Reason: Bedtime Correctional Scale Last Admin: 04/05/18 21:05 Dose: 2 unit Isosorbide Mononitrate (Imdur) 60 mg PO DAILY [facility] Last Admin: 04/08/18 08:30 Dose: 60 mg Mometasone Furoate/Formoterol Fumar (Dulera 100 Mcg/5 Mcg Inhaler) 1 puff INH BID-RT [facility] Last Admin: 04/08/18 07:12 Dose: 1 puff Nitroglycerin (Nitrostat) 0.4 mg SL Q5MIN PRN PRN Reason: Chest Pain Last Admin: 04/08/18 08:26 Dose: 0.4 mg Nitroglycerin (Nitro-Bid 2% Ointment) 0.5 inch TOP Q8HR [facility] Last Admin: 04/08/18 05:52 Dose: 0.5 inch Ondansetron HCl (Zofran) 4 mg IVP Q6H PRN PRN Reason: Nausea/Vomiting Ranolazine (Ranexa) 500 mg PO BID [facility] Ranolazine (Ranexa) 500 mg PO 1545 [facility] Stop: 04/08/18 17:00 Senna/Docusate Sodium (Senokot S) 2 tab PO BID PRN PRN Reason: Constipation Last Admin: 04/06/18 22:08 Dose: 2 tab Sodium Chloride (Flush - Normal Saline) 10 ml IVF Q12HR [facility] Last Admin: 04/08/18 08:37 Dose: 10 ml Sodium Chloride (Flush - Normal Saline) 10 ml IVF PRN PRN PRN Reason: Saline Flush Valsartan (Diovan) 160 mg PO BID [facility] Last Admin: 04/08/18 08:30 Dose: 160 mg
[2018-04-08] MEDS: Atorvastatin Calcium 40 MG TAB PO SCH (20:35)
[2018-04-09] MEDS: Nitroglycerin 0.4 MG TAB (25 Tab Bottle) SL PRN ×8 (02:33→23:14)
[2018-04-09] MEDS: ALPRAZolam 0.25 MG TAB PO PRN ×2 (02:33→23:12)
[2018-04-09 05:16] LABS: Platelet Count 209 thou/uL (130-400)
[2018-04-09] MEDS: Nitroglycerin 2% Ointment 1 INCH/1 GM Packet TOP SCH (05:26)
[2018-04-09 05:33] LABS: Calc. Creatinine Clearance 88 mL/min (70-130); Estimated GFR-MDRD Greater than 90
[2018-04-09] MEDS: Mometasone/Formoterol 120 PUFF INHALER INH SCH ×2 (07:48→19:03)
[2018-04-09] MEDS: Carvedilol 3.125 MG TAB PO SCH (08:04)
[2018-04-09] MEDS: cloNIDine 0.2 MG TAB PO SCH ×2 (08:04→20:21)
[2018-04-09] MEDS: Clopidogrel Bisulfate 75 MG TAB PO SCH (08:05)
[2018-04-09] MEDS: Famotidine 20 MG TAB PO SCH ×2 (08:05→20:21)
[2018-04-09] MEDS: Valsartan 80 MG TAB PO SCH ×2 (08:05→20:20)
[2018-04-09] MEDS: Enoxaparin Sodium 60 MG/0.6 ML SYRINGE SC SCH ×2 (08:05→20:21)
[2018-04-09] MEDS: HumaLOG 300 UNITS/3 ML VIAL SC PRN (08:09)
[2018-04-09] MEDS: Bisacodyl 5 MG TAB PO PRN (08:14)
[2018-04-09] MEDS ORDERED: Carvedilol 3.125 MG TAB PO SCH ×2 (08:28→08:45)
[2018-04-09] MEDS ORDERED: Carvedilol 6.25 MG TAB PO SCH (08:45)
--- NOTE | 2018-04-09 12:20 | PDOC.PN ---
- Subjective Encounter Start Date: 04/09/18 Encounter Start Time: 08:20 Pt seen for followup re; unstable angina. No chest pain today. nausea+, vomiting+ - Objective MAR Reviewed: Yes Vital Signs & Weight: Vital Signs (12 hours) Temp Pulse Resp BP BP Pulse Ox 04/09/18 11:38 97.7 F 62 16 118/60 100 04/09/18 10:50 70 16 04/09/18 07:48 80 14 04/09/18 07:30 97.7 F 65 18 158/78 H 98 04/09/18 03:12 98 F 66 18 122/58 L 99 04/09/18 02:09 62 16 97 Weight Weight 168 lb 14.4 oz I&O: 04/08/18 04/09/18 04/10/18 06:59 06:59 06:59 Intake Total 1090 1110 Output Total 700 950 Balance 390 160 Result Diagrams: 04/09/18 04:59 04/09/18 04:59 Additional Labs: Accuchecks 04/09/18 04/09/18 04/08/18 11:07 05:32 20:49 POC Glucose 102 155 H 216 H 04/08/18 17:01 POC Glucose 118 H EKG Reviewed by me: Yes (Tele: NSR) Phys Exam - Physical Examination Constitutional: NAD HEENT: moist MMs Neck: supple Respiratory: clear to auscultation bilateral Cardiovascular: RRR Gastrointestinal: soft Neurological: moves all 4 limbs Psychiatric: normal affect Dx/Plan (1) Unstable angina Status: Acute Comment: will continue Lovenox, aspirin, statin, beta karsten, Imdur, ARB and Plavix (2) Diabetes mellitus type 2 in nonobese Code(s): E11.9 - TYPE 2 DIABETES MELLITUS WITHOUT COMPLICATIONS Status: Chronic Comment: reasonable control (3) Hypertension Code(s): I10 - ESSENTIAL (PRIMARY) HYPERTENSION Status: Chronic Comment: controlled (4) COPD (chronic obstructive pulmonary disease) Status: Chronic Comment: stable - Plan * . Review of Systems - Review of Systems Cardiovascular: negative: chest pain, palpitations, orthopnea, paroxysmal nocturnal dyspnea, edema, light headedness Gastrointestinal: Nausea, Vomiting. negative: Abdominal Pain, Diarrhea, Constipation, Melena, Hematochezia - Medications/Allergies Allergies/Adverse Reactions: Allergies Allergy/AdvReac Type Severity Reaction Status Date / Time No Known Drug Allergies Allergy Unknown Verified 08/27/17 15:32 Medications: Current Medications Acetaminophen (Tylenol) 650 mg PO Q4H PRN PRN Reason: Headache/Fever/Mild Pain (1-3) Last Admin: 04/09/18 05:30 Dose: 650 mg Albuterol/Ipratropium (Duoneb) 3 ml NEB [id number] [facility] Last Admin: 04/09/18 10:50 Dose: 3 ml Alprazolam (Xanax) 0.25 mg PO TIDPRN PRN PRN Reason: Anxiety Last Admin: 04/09/18 02:33 Dose: 0.25 mg Aspirin (Aspirin Chewable) 81 mg PO QAM-[facility] Last Admin: 04/09/18 08:04 Dose: 81 mg Atorvastatin Calcium (Lipitor) 40 mg PO HS [facility] Last Admin: 04/08/18 20:35 Dose: 40 mg Benzonatate (Tessalon) 100 mg PO Q6H PRN PRN Reason: Cough Bisacodyl (Dulcolax) 10 mg PO DAILYPRN PRN PRN Reason: Constipation Last Admin: 04/09/18 08:14 Dose: 10 mg Carvedilol (Coreg) 12.5 mg PO BID-[facility] Clonidine (Catapres) 0.1 mg PO Q4H PRN PRN Reason: SBP > 160____ Last Admin: 04/03/18 22:46 Dose: 0.1 mg Clonidine (Catapres) 0.2 mg PO BID [facility] Last Admin: 04/09/18 08:04 Dose: 0.2 mg Clopidogrel Bisulfate (Plavix) 75 mg PO DAILY [facility] Last Admin: 04/09/18 08:05 Dose: 75 mg Dextrose/Water (Dextrose 50%) 25 gm SLOW IVP PRN PRN PRN Reason: Hypoglycemia Enoxaparin Sodium (Lovenox) 60 mg SC 0900,2100 [facility] Last Admin: 04/09/18 08:05 Dose: 60 mg Famotidine (Pepcid) 20 mg PO BID [facility] Last Admin: 04/09/18 08:05 Dose: 20 mg Glucagon (Glucagon) 1 mg IM PRN PRN PRN Reason: Hypoglycemia Hydralazine HCl (Apresoline) 10 mg SLOW IVP Q4H PRN PRN Reason: SBP > 180 and HR < 70 Dextrose/Water (D5w) 1,000 mls @ 0 mls/hr IV .Q0M PRN PRN Reason: Hypoglycemia Insulin Human Lispro (Humalog) 0 units SC .MODERATE SLIDING SC PRN PRN Reason: Moderate Correctional Scale Last Admin: 04/09/18 08:09 Dose: 2 units Insulin Human Lispro (Humalog) 0 units SC .BEDTIME SLIDING SC PRN PRN Reason: Bedtime Correctional Scale Last Admin: 04/05/18 21:05 Dose: 2 unit Isosorbide Mononitrate (Imdur) 60 mg PO DAILY [facility] Last Admin: 04/09/18 08:05 Dose: 60 mg Mometasone Furoate/Formoterol Fumar (Dulera 100 Mcg/5 Mcg Inhaler) 1 puff INH BID-RT [facility] Last Admin: 04/09/18 07:48 Dose: 1 puff Nitroglycerin (Nitrostat) 0.4 mg SL Q5MIN PRN PRN Reason: Chest Pain Last Admin: 04/09/18 02:33 Dose: 0.4 mg Ondansetron HCl (Zofran) 4 mg IVP Q6H PRN PRN Reason: Nausea/Vomiting Last Admin: 04/09/18 10:16 Dose: 4 mg Ranolazine (Ranexa) 1,000 mg PO BID [facility] Last Admin: 04/09/18 08:40 Dose: Not Given Senna/Docusate Sodium (Senokot S) 2 tab PO BID PRN PRN Reason: Constipation Last Admin: 04/06/18 22:08 Dose: 2 tab Sodium Chloride (Flush - Normal Saline) 10 ml IVF Q12HR [facility] Last Admin: 04/09/18 08:06 Dose: 10 ml Sodium Chloride (Flush - Normal Saline) 10 ml IVF PRN PRN PRN Reason: Saline Flush Valsartan (Diovan) 160 mg PO BID [facility] Last Admin: 04/09/18 08:05 Dose: 160 mg
[2018-04-09] MEDS: Carvedilol 6.25 MG TAB PO SCH (17:07)
[2018-04-09] MEDS: Atorvastatin Calcium 40 MG TAB PO SCH (20:20)
[2018-04-10] MEDS: Mometasone/Formoterol 120 PUFF INHALER INH SCH (07:35)
[2018-04-10] MEDS: Enoxaparin Sodium 60 MG/0.6 ML SYRINGE SC SCH (08:34)
[2018-04-10] MEDS: Valsartan 80 MG TAB PO SCH (08:37)
[2018-04-10] MEDS: Carvedilol 6.25 MG TAB PO SCH (08:38)
[2018-04-10] MEDS: Clopidogrel Bisulfate 75 MG TAB PO SCH (08:39)
[2018-04-10] MEDS: cloNIDine 0.2 MG TAB PO SCH (08:39)
[2018-04-10] MEDS: Famotidine 20 MG TAB PO SCH (08:39)
[2018-04-10] MEDS ORDERED: Amlodipine 10 MG TAB PO SCH ×2 (09:00→09:30)
[2018-04-10 12:02] VITALS: BP 121/58; TEMP 98.4
--- NOTE | 2018-04-11 01:36 | DIS ---
DATE OF ADMISSION: 04/03/2018 DATE OF DISCHARGE: 04/10/2018 PRIMARY CARE PROVIDER: Hipolito Dudley MD DISCHARGE DIAGNOSES: 1. Unstable angina. 2. Hypokalemia. 3. Tobacco abuse. 4. Chronic obstructive pulmonary disease, chronic and stable. CONSULTATIONS DURING THIS HOSPITALIZATION: Cardiology, Matt Aguirre MD CONDITION OF PATIENT ON THE DAY OF DISCHARGE: Stable. I assessed Ms. Kurtz on the day of discharge. She denies chest pain. Vital signs are stable. S1 and S2 are heard, regular. Lungs are clear to auscultation bilaterally. DISCHARGE MEDICATIONS: 1. Ventolin HFA 2 puffs every 4 hours as needed. 2. Nitroglycerin 0.4 mg sublingually every 5 minutes as needed. 3. Norvasc 10 mg daily. 4. Aspirin 81 mg daily. 5. Lipitor 40 mg at bedtime. 6. Coreg 12.5 mg 2 times a day. 7. Clonidine 0.2 mg 2 times a day. 8. Plavix 75 mg daily. 9. Isosorbide mononitrate 60 mg daily. 10. Metformin 500 mg 2 times a day. 11. Dulera 100/5 mcg inhaler, 1 puff two times a day. 12. Ranexa 1000 mg 2 times a day. 13. Valsartan 160 mg 2 times a day. HOSPITAL COURSE: Ms. Kurtz is a pleasant 63-year-old lady, who was admitted to [facility] on April 03, 2018 for chest pain. Please refer to Dr. Barreto's history and physical note dated April 03, 2018 for further details. She was seen by Cardiology Service. She continued to have on and off chest pain and her medications were titrated. She was also started on Ranexa. 2D echocardiogram showed left ventricular ejection fraction of 50% to 55%, normal- sized left atrium, normal left ventricular size, impaired relaxation compatible with diastolic dysfunction, [id number] mitral regurgitation, and mild tricuspid regurgitation. She continued to progressively improve and is being discharged home in a stable condition. 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 Many thanks for allowing me to participate in your patient's care. Please feel free to contact me with any questions or concerns. DISCHARGE DESTINATION: Home. Total amount of time spent coordinating this discharge: 32 minutes. Job ID: [id number] MTDD
[2018-04-11] MEDS ORDERED: Enoxaparin Sodium 40 MG/0.4 ML SYRINGE SC SCH (09:00)
--- NOTE | 2018-04-12 20:14 | EKG ---
Test Reason : STAT Blood Pressure : / mmHG Vent. Rate : 061 BPM Atrial Rate : 061 BPM P-R Int : 132 ms QRS Dur : 088 ms QT Int : 420 ms P-R-T Axes : 043 044 256 degrees QTc Int : 422 ms Suspect unspecified pacemaker failure . The pt. may have an atrial pacemaker or this may be basel ine artifact. Normal sinus rhythm Cannot rule out Inferior infarct , age undetermined Abnormal ECG When compared with ECG of 03-APR-2018 17:47, Premature ventricular complexes are no longer Present Minimal criteria for Inferior infarct are now Present T wave inversion now evident in Inferior leads Confirmed by Sana ZAYAS ([id number]) on 04/12/2018 8:14:37 PM Referred By: CHIQUITA Confirmed By:Sana ZAYAS
== END 2018-04-10 15:44 | disposition home or self-care (01) | DRG 282 ==
LOC: ERS 17:37 → 2NO 18:50
PROVIDERS: ADMIT Internal Medicine; ATTEND Internal Medicine
DX: I21.4 Non-ST elevation (NSTEMI) myocardial infarction (principal); F14.10 Cocaine abuse, uncomplicated; J44.9 Chronic obstructive pulmonary disease, unspecified; F17.210 Nicotine dependence, cigarettes, uncomplicated; I25.110 Atherosclerotic heart disease of native coronary artery with unstable angina pectoris; E78.5 Hyperlipidemia, unspecified; M19.90 Unspecified osteoarthritis, unspecified site; E11.51 Type 2 diabetes mellitus with diabetic peripheral angiopathy without gangrene; E87.6 Hypokalemia; I08.1 Rheumatic disorders of both mitral and tricuspid valves; K21.9 Gastro-esophageal reflux disease without esophagitis; E55.9 Vitamin D deficiency, unspecified; Z79.84 Long term (current) use of oral hypoglycemic drugs; Z95.1 Presence of aortocoronary bypass graft; Z90.49 Acquired absence of other specified parts of digestive tract; Z82.49 Family history of ischemic heart disease and other diseases of the circulatory system; Z83.3 Family history of diabetes mellitus
CPT/HCPCS: 36415; 36416; 80048; 82550; 82553; 82565; 83690; 83880; 84484; 85014; 85018; 85025; 85049; 93005; 93010; 93306; 94640; J1650; J1940; J2270; J2405; J7620

== ENCOUNTER 2019-04-29 14:27 | Inpatient (IN) | payer MEDICARE, MEDICAID ==
[2019-04-29] MEDS ORDERED: Magnesium 2 GM/50 ML BAG (IN WATER) ONE (14:48)
[2019-04-29] MEDS ORDERED: Dexamethasone 10 MG/ML VIAL ONE (14:48)
[2019-04-29] MEDS ORDERED: Albuterol Sulfate 2.5 mg/3 ml Neb ONE (14:51)
[2019-04-29 14:58] LABS: Actual Bicarbonate (HCO3a) 18.3 mEq/L (22-28); Analyzer IN Cardio ER; Base Excess (BEa) -6.4 mEq/L (-2.0 to +3.0); CO2 Tension 34.7 mmHg (35.0-45.0); Carboxyhemoglobin (COHb) 1.5 gm% (0.0-3.0); Hemoglobin (Hb) 15.4 g/dL (12.0-16.0); Potassium - ABG Lab 3.73 mmol/L (3.70-5.30); pH, Arterial 7.34 (7.35-7.45)
[2019-04-29 15:11] LABS: ALV-art Gradient 78.785 (0-20); Puncture Site LRA
[2019-04-29] MEDS ORDERED: Ondansetron PF 4 MG/2 ML Vial IVP PRN (15:19)
[2019-04-29] MEDS ORDERED: HYDROcodone/Acetaminophen 5/325 mg Tablet PO PRN (15:19)
[2019-04-29] MEDS ORDERED: Loperamide HCl 2 MG CAP PO PRN (15:19)
[2019-04-29] MEDS ORDERED: Ondansetron ODT 4 MG TAB PO PRN (15:19)
[2019-04-29] MEDS ORDERED: Bisacodyl 5 MG TAB PO PRN (15:19)
[2019-04-29] MEDS ORDERED: Docusate 100 MG CAP PO PRN (15:24)
[2019-04-29] MEDS ORDERED: Melatonin 3 MG TAB PO PRN (15:24)
[2019-04-29] MEDS ORDERED: Benzonatate 100 MG CAP PO PRN (15:24)
[2019-04-29] MEDS ORDERED: Labetalol HCl 100 MG/20 ML VIAL SLOW IVP PRN (15:24)
[2019-04-29] MEDS ORDERED: Dextrose 50% Abboject 50 ML SYRINGE SLOW IVP PRN (15:27)
[2019-04-29] MEDS ORDERED: Dextrose 5% in Water 1,000 ML IV PRN (15:27)
[2019-04-29] MEDS ORDERED: metFORMIN 500 MG TAB PO SCH (17:00)
--- NOTE | 2019-04-29 19:33 | PDOC.HHP ---
Hospitalist HPI - History of Present Illness Shortness of breath History of Present Illness: 64-year-old female with complex past medical history presents with shortness of breath. Patient with past medical history of COPD who is currently smoking three cigarettes per day, coronary artery disease with history of coronary artery bypass grafting, CHF with EF 50% in 2019 and diastolic dysfunction, cocaine use, hypertension, hyperlipidemia, and osteoarthritis. Patient has been diagnosis COPD and yet she continues to smoke. Patient with several weeks of worsening shortness of breath that has gotten acutely worsen the past one week. Patient with cough with productive green sputum. Patient was subjective fever and chills. Patient denies sick contacts and states that she lives alone. Patient was initially presenting to [place] and then was transferred to a higher level of care. I find the patient in the emergency department she is breathing tenuously on the BiPAP. Patient has poor air movement and all lung donovan and is diffusely wheezing. Patient admitted to the intermediate medical care for for close management. Hospitalist ROS - Review of Systems All other systems reviewed; all pertinent +/- noted in HPI/Subj Hospitalist History - Past Medical History Source: patient, old records Cardiac: reports: CAD, HTN, Hyperlipidemia Pulmonary: reports: COPD, high cholesterol, hypertension, lung disease Endocrine: reports: Diabetes - Past Surgical History Past Surgical History: reports: CABG - Family History Family History: reports: hypertension - Social History Smoking Status: Current every day smoker Tobacco Type: chewing tobacco Alcohol: reports: None Drugs: reports: cocaine (past use) Living Situation: Alone Domestic Violence: Negative Activity level: independent ambulation - Exam General Appearance: ill appearing Eye: PERRL, anicteric sclera ENT: normocephalic atraumatic, moist mucosa Neck: supple, symmetric, no lymphadenopathy Heart: no murmur, no gallops, no rubs, normal peripheral pulses Respiratory: no rales, normal chest expansion, no tachypnea, rhonchi, wheezes ( severe all lung donovan) Gastrointestinal: soft, non-tender, non-distended, normal bowel sounds, no guarding, no rigidity Extremities: no edema Skin: no lesions, no rashes Neurological: cranial nerve grossly intact, no focal deficits Musculoskeletal: generalized weakness Psychiatric: normal affect, normal behavior, A&O x 3 Hospitalist Results - Labs Lab results: ABG pH 7.34 (7.35-7.45) L 04/29/19 14:47 ABG pCO2 34.7 mmHg (35.0-45.0) L 04/29/19 14:47 ABG pO2 106.0 mmHg (> 80.0) H 04/29/19 14:47 Hospitalist H&P A/P - Problem (1) COPD exacerbation Code(s): J44.1 - CHRONIC OBSTRUCTIVE PULMONARY DISEASE W (ACUTE) EXACERBATION Status: Acute (2) Acute respiratory failure Code(s): J96.00 - ACUTE RESPIRATORY FAILURE, UNSP W HYPOXIA OR HYPERCAPNIA Status: Acute (3) Coronary artery disease Code(s): I25.10 - ATHSCL HEART DISEASE OF [place] CORONARY ARTERY W/O ANG PCTRS Status: Acute (4) Unstable angina Status: Acute (5) Diabetes mellitus type 2 in nonobese Code(s): E11.9 - TYPE 2 DIABETES MELLITUS WITHOUT COMPLICATIONS Status: Chronic (6) Hypertension Code(s): I10 - ESSENTIAL (PRIMARY) HYPERTENSION Status: Chronic (7) Tobacco abuse Code(s): Z72.0 - TOBACCO USE Status: Chronic - Plan Plan: Plan: Admit to intermediate medical care floor continuous BiPAP pulmonary specific antibiotics IV steroids breathing treatment scheduled and as needed consider pulmonology consult if patient's breathing does not improve echocardiogram to monitor congestive heart failure previous echocardiogram from 2019 with ejection fraction of 50% with diastolic dysfunction does not appear to be in acute CHF exacerbation on admission Add BNP AM labs blood pressure control short acting insulin for glucose control continue other home medications as able G.I. prophylaxis DVT prophylaxis disposition: if the patient does not stop smoking long-term prognosis is guarded.
--- NOTE | 2019-04-29 19:55 | RAD ---
CHEST ONE VIEW: 04/29/19 HISTORY: Shortness of breath. COMPARISON: 04/29/19 FINDINGS: There are sternotomy wires. Atherosclerosis of the aorta. Normal cardiac silhouette. Pulmonary vessel s and hilum are normal. Costophrenic angles are clear. Chronic lung parenchymal changes. No masses or consolidation. Hyperinflation. No pneumothorax. IMPRESSION: 1. Chronic lung parenchymal changes. Hyperinflation. 2. Atherosclerosis. POS: PPP
[2019-04-29] MEDS: Mometasone/Formoterol 120 PUFF INHALER INH SCH (22:20)
[2019-04-29] MEDS: Famotidine 20 MG TAB PO SCH (22:30)
[2019-04-29] MEDS: cloNIDine 0.2 MG TAB PO SCH (22:31)
[2019-04-29] MEDS: Carvedilol 25 MG TAB PO SCH (22:32)
[2019-04-29] MEDS: Valsartan 80 MG TAB PO SCH (22:32)
[2019-04-29] MEDS: Atorvastatin Calcium 40 MG TAB PO SCH (22:32)
[2019-04-29] MEDS: Heparin 5,000 UNITS/ML VIAL SC SCH (22:33)
[2019-04-29] MEDS: HumaLOG 300 UNITS/3 ML VIAL SC PRN (22:33)
[2019-04-29] MEDS: cefTRIAXone\\ROCEPHIN 2 GM in Sodium Chloride 0.9% 100 ML IVPB SCH (23:12)
[2019-04-29] MEDS: Azithromycin 500 MG in Sodium Chloride 0.9% 250 ML 250 ML IVPB SCH (23:13)
[2019-04-29] MEDS: methylPREDNISolone Sod Succ 40 MG VIAL IVP SCH (23:13)
[2019-04-30] MEDS: methylPREDNISolone Sod Succ 40 MG VIAL IVP SCH ×4 (00:40→17:05)
[2019-04-30 03:46] LABS: #Lymphocytes 0.8 thou/uL (1.20-3.40); #Monocytes 0.1 thou/uL (0.11-0.59); #Neutrophils 1.1 thou/uL (1.40-6.50); %Basophils 1.2 % (0.0-1.0); %Eosinophils 0.2 % (0.0-10.0); %Lymphocytes 37.8 % (21.0-51.0); %Monocytes 3.9 % (0.0-10.0); Hemoglobin 13.8 g/dL (12.0-16.0); Mean Corpuscular HGB CONC 30.8 g/dL (32.0-36.0); Mean Corpuscular Volume 84.6 fL (78.0-98.0); Mean Platelet Volume 10.3 fL (7.4-10.4); Platelet Count 171 thou/uL (130-400); RBC Distribution Width 13.5 % (11.5-14.5); Red Blood Cell (RBC) Count 5.31 mill/uL (4.20-5.40)
[2019-04-30 04:10] LABS: Anion Gap 11 mmol/L (10-20); BUN (Urea Nitrogen) 18 mg/dL (9.8-20.1); Calc. Creatinine Clearance 71 mL/min (70-130); Calcium 8.1 mg/dL (7.8-10.44); Carbon Dioxide 20 mmol/L (23-31); Chloride 110 mmol/L (98-107); Estimated GFR-MDRD 84; Glucose 408 mg/dL (80-115); Sodium 136 mmol/L (136-145)
[2019-04-30] MEDS: Nitroglycerin 0.4 MG TAB (25 Tab Bottle) SL PRN ×3 (05:43→08:00)
[2019-04-30] MEDS ORDERED: Aspirin 325 mg Enteric Coated Tablet PO SCH (06:00)
[2019-04-30] MEDS: HumaLOG 300 UNITS/3 ML VIAL SC PRN ×3 (06:02→20:27)
[2019-04-30] MEDS: Acetaminophen 325 MG TAB PO PRN (07:42)
[2019-04-30] MEDS: Calcium Carbonate 500 MG ChewTAB PO PRN (08:05)
[2019-04-30] MEDS: Famotidine 20 MG TAB PO SCH ×2 (08:12→20:26)
[2019-04-30] MEDS: Valsartan 80 MG TAB PO SCH ×2 (08:13→20:30)
[2019-04-30] MEDS: Amlodipine 10 MG TAB PO SCH (08:13)
[2019-04-30] MEDS: Clopidogrel Bisulfate 75 MG TAB PO SCH (08:13)
[2019-04-30] MEDS: cloNIDine 0.2 MG TAB PO SCH ×2 (08:14→20:30)
[2019-04-30] MEDS: Carvedilol 25 MG TAB PO SCH ×2 (08:14→20:30)
[2019-04-30] MEDS: Heparin 5,000 UNITS/ML VIAL SC SCH ×3 (08:15→20:27)
[2019-04-30] MEDS: Mometasone/Formoterol 120 PUFF INHALER INH SCH ×2 (08:23→19:02)
[2019-04-30] MEDS ORDERED: Aspirin 81 mg Enteric Coated Tablet PO SCH (09:00)
--- NOTE | 2019-04-30 09:33 | PRG ---
DATE OF SERVICE: 04/30/2019 SUBJECTIVE: The patient was seen and examined at the bedside. She is complaining about not having bowels for a couple of days. Usually she has two bowel movements a day. She has some abdominal discomfort secondary to that. She is still short of breath. She is off BiPAP. OBJECTIVE: VITAL SIGNS: Blood pressure is 121/64, pulse is 96, respiratory rate is 22, temperature is 98.4. HEENT: Her head is atraumatic and normocephalic. Eyes are PERRLA. Sclerae are nonicteric. Oral mucosa is slightly dry. NECK: Supple. LUNGS: Bilateral wheezing present on mid and lower parts of both lungs. ABDOMEN: Soft. Mildly tender in the epigastric area. No guarding. No masses. EXTREMITIES: No clubbing, cyanosis or edema. NEUROLOGICAL: She follows my commands. She moves all 4 extremities. There is no any motor or sensory deficits. LABORATORY DATA: Labs showed white count of 2.0, hemoglobin of 13.8, hematocrit 44.9, platelet count is 171,000. Sodium of 136, potassium 5.0, chloride 110, CO2 of 20, BUN 18, creatinine 0.82. Accu-Cheks is ranging from 304 to 408. Troponin I 0.023. Third generation TSH 0.1799. Chest x-ray done last night showed atherosclerosis and chronic lung parenchymal changes with hyperinflation. IMPRESSION: 1. Acute exacerbation of chronic obstructive pulmonary disease. 2. Acute chest pain. 3. Diabetes mellitus worsening secondary to IV steroid use. 4. Hypertension. 5. Tobacco abuse. 6. Acute respiratory failure requiring CPAP. 7. Coronary artery disease. PLAN: Cardiology consult. Pulmonary consult. EKG showed some ST-segment depression with chest pain she had yesterday. She is on aspirin. We will add nitroglycerin. We will do echo and get Cardiology consult. We will start her on 20 units of insulin Lantus along with Accu-Cheks a.c. and at bedtime and sliding scale to control her glycemia better. We will continue her antibiotics, DuoNebs and O2. Job ID: [id number]
[2019-04-30 09:44] LABS: CKMB 1.1 ng/mL (0-6.6)
[2019-04-30] MEDS: Aspirin 81 mg Enteric Coated Tablet PO SCH (10:45)
[2019-04-30] MEDS: Nitroglycerin 2% Ointment 1 INCH/1 GM Packet TOP SCH ×2 (10:49→17:05)
[2019-04-30] MEDS: Insulin Glargine 20 UNITS in Pre-Filled Syringe 1 EACH SC SCH (11:09)
[2019-04-30 12:28] VITALS: BMI 27.2
[2019-04-30 13:20] LABS: Actual Bicarbonate (HCO3a) 17.4 mEq/L (22-28); Base Excess (BEa) -6.8 mEq/L (-2.0 to +3.0); CO2 Tension 31.2 mmHg (35.0-45.0); Calcium, Ionized 1.18 mmol/L (1.12-1.30); Carboxyhemoglobin (COHb) 0.4 gm% (0.0-3.0); Hemoglobin (Hb) 12.9 g/dL (12.0-16.0); O2 Tension (PaO2) 70.7 mmHg (> 80.0); Potassium - ABG Lab 5.01 mmol/L (3.70-5.30); pH, Arterial 7.37 (7.35-7.45)
[2019-04-30 13:21] LABS: Puncture Site RRA
[2019-04-30] MEDS ORDERED: Sodium Chloride 0.9% 250 ML 250 ML IVPB SCH (13:45)
--- NOTE | 2019-04-30 14:15 | CON ---
DATE OF CONSULTATION: HISTORY OF PRESENT ILLNESS: The patient is a 64-year-old woman, who presented with increasing dyspnea. The patient has a long history of a coronary artery disease. She previously underwent a cardiac catheterization in 2013. She subsequently underwent coronary artery bypass graft surgery x3. In 2012, she had a MARLOW placed to the LAD and a saphenous vein graft placed to the diagonal and an obtuse marginal branch. The patient had small diffusely diseased vessels. The patient was readmitted with unstable angina in August of 2017. She underwent a repeat catheterization. She was found to have a 99% left main lesion, 100% proximal LAD lesion, 100% circumflex lesion. The right coronary artery had a chronic occlusion. The vein graft to the 1st obtuse marginal branch was patent. There was collateral flow from the obtuse marginal of the PDA. The MARLOW was not imaged. The patient was advised to discontinue smoking. She presents with increasing dyspnea, fevers, and chills. She reported having developing chest discomfort while here in the hospital which responded to one nitroglycerin tablet. The patient reports that she has chronic angina and uses occasional nitroglycerin tablets. PAST MEDICAL HISTORY: 1. Coronary artery disease. 2. Hypertension. 3. Dyslipidemia. 4. Diabetes mellitus. 5. GE reflux. 6. Peripheral vascular disease with a history of an occluded aorta. PAST SURGICAL HISTORY: Coronary artery bypass surgery, thyroidectomy, cholecystectomy, and . FAMILY HISTORY: Positive family history of heart disease. SOCIAL HISTORY: Long history of tobacco abuse. The patient continues to abuse cocaine. ALLERGIES: NO KNOWN DRUG ALLERGIES. REVIEW OF SYSTEMS: Ten-point system otherwise unremarkable. MEDICATIONS: See nursing list. PHYSICAL EXAMINATION: GENERAL: Ill-appearing woman, in mild distress. VITAL SIGNS: Blood pressure 121/64. NECK: No jugular venous distention. LUNGS: Bilateral wheezes. HEART: Regular rate and rhythm. Normal S1 and S2. ABDOMEN: Nondistended. EXTREMITIES: Showed no edema. VASCULAR: Radial pulses are 2+. LABORATORY RESULTS: Sodium 136, potassium 5.0, chloride 110, bicarbonate 20, BUN 18, creatinine 0.82, and glucose is 408. Troponin 0.035. Her white blood cell count is 2.0, hemoglobin 13.8, hematocrit 44.6, and platelets are 171. Her EKG revealed her to have normal sinus rhythm with a nonspecific ST-T wave abnormality with a nonspecific ST-T wave abnormality. IMPRESSION AND PLAN: 1. Chronic obstructive pulmonary disease exacerbation. 2. Stable angina. 3. History of coronary artery bypass graft surgery x3. 4. Diabetes mellitus. 5. Hypertension. 6. History of occluded aorta. 7. Tobacco abuse. 8. Cocaine abuse. This patient presents with a COPD exacerbation,and possible bronchitis. The patient is on a high dose of Coreg. We would recommend decreasing the dose of this medication. The patient is on IV antibiotics. The patient chest discomfort resolved one nitroglycerin tablet with a markedly elevated blood pressure. The patient is being started on nitroglycerin paste. We will follow this patient with you through her hospitalization. Job ID: [id number] MTDD
[2019-04-30] MEDS: cefTRIAXone\\ROCEPHIN 2 GM in Sodium Chloride 0.9% 100 ML IVPB SCH (16:59)
[2019-04-30] MEDS: Azithromycin 500 MG in Sodium Chloride 0.9% 250 ML 250 ML IVPB SCH (17:17)
--- NOTE | 2019-04-30 17:17 | CON ---
DATE OF CONSULTATION: 04/30/2019 CONSULTING PHYSICIAN: Everardoist . REASON FOR CONSULTATION: Shortness of breath. HISTORY OF PRESENT ILLNESS: This patient is a pleasant 64-year-old, who was brought into the hospital last night with increasing shortness of breath. She was having some subjective fever and chills and coughing more than usual. She was diagnosed with a COPD exacerbation and was admitted for further therapy. PAST MEDICAL HISTORY: 1. Chronic obstructive pulmonary disease. 2. Tobacco abuse. 3. Hyperlipidemia. 4. Hypertension. 5. Coronary artery disease. 6. Diabetes mellitus. PAST SURGICAL HISTORY: Coronary artery bypass grafting surgery. FAMILY MEDICAL HISTORY: Remarkable for hypertension. SOCIAL HISTORY: Smokes a pack a day. Chews tobacco. Does not consume alcohol. Does has a remote history of cocaine use. MEDICATIONS: Prior to admission: 1. Coreg 12.5 mg b.i.d. 2. Atorvastatin 40 mg nightly. 3. Aspirin 81 mg daily. 4. Amlodipine 10 mg daily. 5. Ranexa 1000 mg b.i.d. 6. Nitrostat 0.4 mg sublingual q.5 minutes p.r.n. 7. Imdur 60 mg daily. 8. Plavix 75 mg daily. 9. Metformin 500 mg b.i.d. 10. Clonidine 0.2 mg b.i.d. 11. Ventolin 2 puffs every 4 hours as needed. 12. Valsartan 160 mg b.i.d. 13. Dulera 100/5 two puffs twice daily. 14. The patient received pneumococcal vaccine in 2016. REVIEW OF SYSTEMS: Has had some subjective fever and chills. No nausea, vomiting, hematemesis, melena, hematochezia, hematuria, or dysuria. PHYSICAL EXAMINATION: VITAL SIGNS: Temperature 97.1, pulse 61, blood pressure 91/54, and O2 saturation 94%. GENERAL: She is awake, alert, and in no acute distress. HEENT: Pupils reactive to light. Sclerae are anicteric. Oropharynx clear. NECK: No adenopathy or JVD. LUNGS: Few expiratory wheezes bilaterally. Some crackles in the bases. CARDIAC: S1 and S2. Regular. ABDOMEN: Soft. EXTREMITIES: No edema. LABORATORY DATA: ABG; pH of 7.37, pCO2 of 31, and pO2 of 70 that is on 2 L nasal cannula. Sodium 136, potassium 5, chloride 110, CO2 of 20, BUN 18, creatinine 0.8, and glucose 358. Troponin 0.035. White blood count 2, hematocrit 44.9, and platelet count 171. A chest x-ray demonstrates increased interstitial markings. No overt mass, effusion, or infiltrate. Echocardiogram, EF 45% to 50% with moderate mitral regurgitation. ASSESSMENT: 1. Chronic obstructive pulmonary disease with exacerbation. 2. Systolic heart failure with some degree of mitral regurgitation. 3. History of hypertension. 4. Tobacco abuse. PLAN: I reviewed the orders and agree with current management of antibiotics, nebulization treatments, IV steroids, inhalers. We will follow with you. Job ID: [id number]
[2019-04-30] MEDS: Atorvastatin Calcium 40 MG TAB PO SCH (20:26)
[2019-05-01] MEDS: Nitroglycerin 2% Ointment 1 INCH/1 GM Packet TOP SCH ×4 (01:27→23:30)
[2019-05-01] MEDS: methylPREDNISolone Sod Succ 40 MG VIAL IVP SCH ×5 (01:28→23:29)
[2019-05-01] MEDS: HumaLOG 300 UNITS/3 ML VIAL SC PRN ×4 (06:51→20:50)
[2019-05-01] MEDS: Mometasone/Formoterol 120 PUFF INHALER INH SCH ×2 (08:22→19:10)
--- NOTE | 2019-05-01 08:50 | PRG ---
DATE OF SERVICE: 05/01/2019 SUBJECTIVE: She feels a little better compared to yesterday. She still has a lot of congestion. OBJECTIVE: VITAL SIGNS: On exam, temperature is 98.0, pulse 59, blood pressure 100/55, and O2 saturation 95%. HEENT: Unremarkable. NECK: No adenopathy or JVD. LUNGS: Coarse breath sounds bilaterally. CARDIAC: S1 and S2. Regular. ABDOMEN: Soft. EXTREMITIES: No edema. LABORATORY DATA: No new lab testing was done today. ASSESSMENT: 1. Chronic obstructive pulmonary disease. 2. Likely some degree of bronchopneumonia. 3. Systolic heart failure with mitral regurgitation. 4. Hypertension. 5. Tobacco abuse. PLAN: 1. I will change her nebs to EzPAP. 2. Continue current antibiotics. 3. We would leave in [facility] for one more day. Job ID: [id number]
[2019-05-01] MEDS: Aspirin 81 mg Enteric Coated Tablet PO SCH (08:57)
[2019-05-01] MEDS: Heparin 5,000 UNITS/ML VIAL SC SCH (08:57)
[2019-05-01] MEDS: Clopidogrel Bisulfate 75 MG TAB PO SCH (08:57)
[2019-05-01] MEDS: Famotidine 20 MG TAB PO SCH ×2 (08:57→20:14)
[2019-05-01] MEDS: Insulin Glargine 20 UNITS in Pre-Filled Syringe 1 EACH SC SCH (08:57)
[2019-05-01] MEDS ORDERED: Aspirin 81 mg Enteric Coated Tablet PO SCH (09:00)
[2019-05-01] MEDS ORDERED: Cepastat Lozenges 1 LOZ PO PRN (09:13)
[2019-05-01] MEDS ORDERED: Polyethylene Glycol 3350 17 GM Packet PO SCH (09:15)
[2019-05-01] MEDS ORDERED: guaiFENesin ER 600 MG TAB PO SCH (09:15)
[2019-05-01] MEDS: Nitroglycerin 0.4 MG TAB (25 Tab Bottle) SL PRN ×2 (09:18→09:24)
[2019-05-01] MEDS ORDERED: Valsartan 80 MG TAB PO SCH (09:30)
[2019-05-01] MEDS ORDERED: Nitroglycerin 50 MG/250 ML BOT 0 ML ONE (09:31)
[2019-05-01] MEDS ORDERED: Nitroglycerin 50 MG/250 ML BOT 250 ML IVPB SCH (09:45)
[2019-05-01 09:56] LABS: #Lymphocytes 1.4 thou/uL (1.20-3.40); #Monocytes 0.2 thou/uL (0.11-0.59); #Neutrophils 4.6 thou/uL (1.40-6.50); %Basophils 0.1 % (0.0-1.0); %Lymphocytes 22.4 % (21.0-51.0); %Monocytes 3.4 % (0.0-10.0); Hemoglobin 12.4 g/dL (12.0-16.0); Mean Corpuscular HGB CONC 30.7 g/dL (32.0-36.0); Mean Corpuscular Hemoglobin 26.6 pg (27.0-31.0); Mean Corpuscular Volume 86.8 fL (78.0-98.0); Mean Platelet Volume 10.8 fL (7.4-10.4); Platelet Count 143 thou/uL (130-400); RBC Distribution Width 13.7 % (11.5-14.5); Red Blood Cell (RBC) Count 4.66 mill/uL (4.20-5.40); White Blood Cell (WBC) Count 6.2 thou/uL (4.8-10.8)
[2019-05-01] MEDS ORDERED: Enoxaparin Sodium 80 MG/0.8 ML SYRINGE SC SCH (10:00)
[2019-05-01] MEDS: Amlodipine 10 MG TAB PO SCH (10:14)
[2019-05-01] MEDS: Valsartan 80 MG TAB PO SCH ×2 (10:14→23:27)
[2019-05-01] MEDS: Carvedilol 25 MG TAB PO SCH (10:18)
[2019-05-01] MEDS: cloNIDine 0.2 MG TAB PO SCH (10:19)
[2019-05-01 10:37] LABS: ALT (SGPT) 22 U/L (8-55); AST (SGOT) 16 U/L (5-34); Albumin 3.4 g/dL (3.4-4.8); Alkaline Phosphatase 62 U/L (40-110); Anion Gap 14 mmol/L (10-20); BUN (Urea Nitrogen) 17 mg/dL (9.8-20.1); Bilirubin, Total 0.3 mg/dL (0.2-1.2); Calc. Creatinine Clearance 70 mL/min (70-130); Calcium 8.2 mg/dL (7.8-10.44); Carbon Dioxide 20 mmol/L (23-31); Chloride 108 mmol/L (98-107); Estimated GFR-MDRD 76; Globulin 2.5 g/dL (2.4-3.5); Glucose 339 mg/dL (80-115); Magnesium 2.1 mg/dL (1.6-2.6); Potassium 4.7 mmol/L (3.5-5.1); Protein, Total 5.9 g/dL (6.0-8.3); Sodium 137 mmol/L (136-145)
[2019-05-01 10:41] LABS: Troponin I 0.017 ng/mL (< 0.028)
[2019-05-01 10:46] LABS: Medtox Reader # READER 1
[2019-05-01 10:47] LABS: Amphetamine Not Detected (NotDetected); Barbiturates Screen Not Detected (NotDetected); Benzodiazepine Screen Not Detected (NotDetected); Cocaine Metabolite Screen Detected (NotDetected); Methadone Not Detected (NotDetected); Methamphetamine Not Detected (NotDetected); Opiate Screen Not Detected (NotDetected); Oxycodone Screen Not Detected (NotDetected); Phencyclidine (PCP) Detected (NotDetected); THC/Cannabinoid Screen Not Detected (NotDetected); Tricyclic Screen Not Detected (NotDetected)
[2019-05-01 10:48] LABS: Medtox Control Line Valid? VALID (VALID)
[2019-05-01] MEDS: ALPRAZolam 0.25 MG TAB PO PRN ×2 (12:26→20:50)
--- NOTE | 2019-05-01 13:16 | PRG ---
DATE OF SERVICE: 05/01/2019 SUBJECTIVE: Ms. Kurtz has been having intermittent severe chest pain. She is currently pain free. She also has intermittent bradycardia. OBJECTIVE: VITAL SIGNS: Her blood pressure is 130/68, pulse 60. LUNGS: Diffuse wheezing, expiratory. CARDIAC: Normal S1, normal S2. ABDOMEN: Soft and nontender. EXTREMITIES: There is no edema. ASSESSMENT: 1. Previous bypass with diffuse distal disease. Dr. Aleman did a cardiac catheterization on the patient in 2018. No percutaneous intervention feasible. 2. Chronic obstructive pulmonary disease. 3. Substance abuse, positive for PCP and cocaine. 4. Intermittent bradycardia. PLAN: 1. Stop Coreg. 2. Reduce clonidine. 3. P.r.n. atropine. 4. Nitrates. 5. Lovenox. Long-term prognosis is poor. Job ID: [id number]
[2019-05-01 14:02] LABS: Troponin I 0.023 ng/mL (< 0.028)
[2019-05-01] MEDS: cefTRIAXone\\ROCEPHIN 2 GM in Sodium Chloride 0.9% 100 ML IVPB SCH (16:24)
[2019-05-01] MEDS: Azithromycin 500 MG in Sodium Chloride 0.9% 250 ML 250 ML IVPB SCH (16:24)
[2019-05-01 16:48] LABS: Troponin I 0.022 ng/mL (< 0.028)
[2019-05-01] MEDS: Atorvastatin Calcium 40 MG TAB PO SCH (20:14)
[2019-05-01] MEDS: guaiFENesin ER 600 MG TAB PO SCH (20:14)
[2019-05-01] MEDS: Enoxaparin Sodium 80 MG/0.8 ML SYRINGE SC SCH (20:14)
[2019-05-01] MEDS ORDERED: Heparin 5,000 UNITS/ML VIAL SC SCH (21:00)
[2019-05-01] MEDS: Amlodipine 5 MG TAB PO SCH (21:21)
[2019-05-01] MEDS: cloNIDine 0.1 MG TAB PO SCH (23:26)
[2019-05-02] MEDS: Nitroglycerin 0.4 MG TAB (25 Tab Bottle) SL PRN ×3 (02:07→02:20)
[2019-05-02] MEDS: Acetaminophen 325 MG TAB PO PRN (02:19)
[2019-05-02 03:50] LABS: #Basophils 0.1 thou/uL (0.0-0.2); #Lymphocytes 1.5 thou/uL (1.20-3.40); #Monocytes 0.5 thou/uL (0.11-0.59); #Neutrophils 5.2 thou/uL (1.40-6.50); %Basophils 0.8 % (0.0-1.0); %Eosinophils 0.1 % (0.0-10.0); %Lymphocytes 20.4 % (21.0-51.0); %Monocytes 7.1 % (0.0-10.0); %Neutrophils 71.6 % (42.0-75.0); Hemoglobin 12.4 g/dL (12.0-16.0); Mean Corpuscular HGB CONC 31.3 g/dL (32.0-36.0); Mean Corpuscular Hemoglobin 26.7 pg (27.0-31.0); Mean Corpuscular Volume 85.4 fL (78.0-98.0); Mean Platelet Volume 10.3 fL (7.4-10.4); Platelet Count 145 thou/uL (130-400); RBC Distribution Width 13.4 % (11.5-14.5); Red Blood Cell (RBC) Count 4.65 mill/uL (4.20-5.40); White Blood Cell (WBC) Count 7.3 thou/uL (4.8-10.8)
[2019-05-02 04:10] LABS: ALT (SGPT) 19 U/L (8-55); AST (SGOT) 13 U/L (5-34); Albumin 3.3 g/dL (3.4-4.8); Alkaline Phosphatase 63 U/L (40-110); Anion Gap 14 mmol/L (10-20); BUN (Urea Nitrogen) 14 mg/dL (9.8-20.1); Bilirubin, Total 0.2 mg/dL (0.2-1.2); Calc. Creatinine Clearance 83 mL/min (70-130); Calcium 8.4 mg/dL (7.8-10.44); Carbon Dioxide 21 mmol/L (23-31); Chloride 106 mmol/L (98-107); Estimated GFR-MDRD Greater than 90; Globulin 2.6 g/dL (2.4-3.5); Glucose 307 mg/dL (80-115); Magnesium 2.1 mg/dL (1.6-2.6); Potassium 4.9 mmol/L (3.5-5.1); Protein, Total 5.9 g/dL (6.0-8.3); Sodium 136 mmol/L (136-145)
[2019-05-02] MEDS: Nitroglycerin 2% Ointment 1 INCH/1 GM Packet TOP SCH ×4 (06:06→23:30)
[2019-05-02] MEDS: methylPREDNISolone Sod Succ 40 MG VIAL IVP SCH ×4 (06:06→23:30)
[2019-05-02] MEDS: HumaLOG 300 UNITS/3 ML VIAL SC PRN ×3 (06:08→17:19)
--- NOTE | 2019-05-02 07:32 | PDOC.HOSPP ---
- Subjective Encounter Date: 05/02/19 Encounter Time: 07:00 Subjective: Patient seen and examined for respiratory failure. Had CP last night. Also SOB with wheezing. No other overnight events - Objective Vital Signs & Weight: Vital Signs (12 hours) Temp Pulse BP Pulse Ox 05/02/19 03:00 97.7 F 05/01/19 23:26 121/64 05/01/19 23:00 98.2 F 05/01/19 21:21 83 05/01/19 20:00 95 Weight Admit Weight 147 lb 11.2 oz Weight 158 lb 9.6 oz Most Recent Monitor Data Heart Rate from ECG 81 NIBP 155/74 NIBP BP-Mean 101 Respiration from ECG 25 SpO2 93 I&O: 05/01/19 05/02/19 05/03/19 06:59 06:59 06:59 Intake Total 300 1200 Output Total 50 750 Balance 250 450 Result Diagrams: 05/02/19 03:17 05/02/19 03:17 Additional Labs: Accuchecks 05/02/19 05/01/19 05/01/19 06:02 20:47 16:04 POC Glucose 224 H 315 H 274 H 05/01/19 11:25 POC Glucose 371 H EKG Reviewed by me: Yes (Tele SR) Hospitalist ROS - Review of Systems Constitutional: denies: fever, chills, sweats, weakness, malaise, other Respiratory: reports: cough, SOB with excertion Cardiovascular: reports: chest pain Gastrointestinal: denies: nausea, vomiting, abdominal pain, diarrhea, constipation, melena, hematochezia, other - Medication Medications: Active Medications Generic Name Dose Route Start Last Admin Trade Name Freq PRN Reason Stop Dose Admin Acetaminophen 650 mg 04/29/19 15:19 05/02/19 02:19 Tylenol PO 650 mg Q4H PRN Administration Headache/Fever/Mild Pain (1-3) Albuterol/Ipratropium 3 ml 05/01/19 11:00 05/02/19 02:32 Duoneb EZPAP 3 ml [id number] SAMMY Administration Alprazolam 0.25 mg 05/01/19 09:19 05/01/19 20:50 Xanax PO 05/02/19 09:20 0.25 mg BIDPRN PRN Administration Anxiety Amlodipine Besylate 5 mg 05/01/19 21:00 05/01/19 21:21 Norvasc PO Not Given BID SAMMY Aspirin 81 mg 04/30/19 09:00 05/01/19 08:57 Ecotrin PO 81 mg DAILY SAMMY Administration Atorvastatin Calcium 40 mg 04/29/19 21:00 05/01/19 20:14 Lipitor PO 40 mg HS SAMMY Administration Benzonatate 100 mg 04/29/19 15:24 04/30/19 07:42 Tessalon PO 100 mg Q4H PRN Administration Cough Bisacodyl 10 mg 04/29/19 15:19 04/30/19 10:50 Dulcolax PO 10 mg DAILYPRN PRN Administration Constipation Calcium Carbonate 1,000 mg 04/29/19 15:19 04/30/19 08:05 Tums PO 1,000 mg Q4H PRN Administration Heartburn or Indigestion Clonidine 0.1 mg 05/01/19 21:00 05/01/19 23:26 Catapres PO Not Given BID [facility] Clopidogrel Bisulfate 75 mg 04/30/19 09:00 05/01/19 08:57 Plavix PO 75 mg DAILY SAMMY Administration Enoxaparin Sodium 70 mg 05/01/19 21:00 05/01/19 20:14 Lovenox SC 70 mg 0900,2100 SAMMY Administration Famotidine 20 mg 04/29/19 21:00 05/01/19 20:14 Pepcid PO 20 mg BID SAMMY Administration Guaifenesin 600 mg 05/01/19 21:00 05/01/19 20:14 Mucinex PO 600 mg Q12HR SAMMY Administration Azithromycin 500 mg/ Sodium 250 mls @ 250 mls/hr 04/29/19 17:00 05/01/19 16: 24 Chloride IVPB 250 mls Q24HR SAMMY Administration Ceftriaxone Sodium 2 gm/ 100 mls @ 200 mls/hr 04/29/19 16:00 05/01/19 16:24 Sodium Chloride IVPB 100 mls Q24HR SAMMY Administration Insulin Glargine 20 units/ 0.2 mls @ 0 mls/hr 04/30/19 09:00 05/01/19 08:57 Miscellaneous Medication SC 0.2 mls QAM SAMMY Administration Insulin Human Lispro 0 units 04/29/19 15:27 05/01/19 20:50 Humalog SC 4 unit .BEDTIME SLIDING SC PRN Administration Bedtime Correctional Scale Insulin Human Lispro 0 units 05/02/19 06:03 05/02/19 06:08 Humalog SC 4 unit .MODERATE SLIDING SC PRN Administration Moderate Correctional Scale Isosorbide Mononitrate 60 mg 04/30/19 09:00 05/01/19 10:36 Imdur PO 60 mg DAILY SAMMY Administration Methylprednisolone Sodium Succinate 40 mg 04/29/19 18:00 05/02/19 06:06 Solu-Medrol IVP 40 mg Q6HR SAMMY Administration Mometasone Furoate/Formoterol Fumar 1 puff 04/29/19 18:30 05/01/19 19:10 Dulera 100 Mcg/5 Mcg Inhaler INH 1 puff BID-RT SAMMY Administration Nitroglycerin 0.4 mg 04/29/19 15:18 05/02/19 02:20 Nitrostat SL 0.4 mg Q5MIN PRN Administration Chest Pain Nitroglycerin 1 inch 05/01/19 12:00 05/02/19 06:06 Nitro-Bid 2% Ointment TOP 1 inch Q6HR SAMMY Administration Ondansetron HCl 4 mg 04/29/19 15:19 04/30/19 17:48 Zofran IVP 4 mg Q6H PRN Administration Nausea/Vomiting Ranolazine 1,000 mg 04/29/19 21:00 05/01/19 20:14 Ranexa PO 1,000 mg BID SAMMY Administration Sodium Chloride 10 ml 05/01/19 21:00 05/01/19 20:14 Flush - Normal Saline IVF 10 ml Q12HR SAMMY Administration Valsartan 80 mg 05/01/19 21:00 05/01/19 23:27 Diovan PO Not Given BID SAMMY - Exam General Appearance: NAD Heart: RRR, no gallops Respiratory: normal chest expansion, rhonchi, wheezes Gastrointestinal: non-tender, non-distended, normal bowel sounds Extremities: no cyanosis, no clubbing Neurological: no new deficit Psychiatric: normal affect, A&O x 3 Hosp A/P - Plan DVT proph w/SCDs Acute respiratory failure with hypoxemia Unstable angina COPD exacerbation HTN CAD Polysubstance abuse Other issues per previous notes PLAN: Cont Nebs Q4h with steroids and Atbx Cont ASA/Plavix on full Lovenox AM labs Cont Lantus 20 units daily - add 10 units HS - also change sliding scale to moderate Cont current dose of Clonidine/Valsartan/Imdur Amlodipine on hold No betablockers due to Cocaine abuse
[2019-05-02] MEDS: Mometasone/Formoterol 120 PUFF INHALER INH SCH ×2 (07:33→19:27)
[2019-05-02] MEDS ORDERED: Furosemide 20 MG/2 ML VIAL SLOW IVP SCH (08:15)
[2019-05-02] MEDS: ALPRAZolam 0.25 MG TAB PO PRN (08:19)
[2019-05-02] MEDS: Famotidine 20 MG TAB PO SCH ×2 (08:19→21:04)
[2019-05-02] MEDS: Polyethylene Glycol 3350 17 GM Packet PO SCH (08:19)
[2019-05-02] MEDS: Enoxaparin Sodium 80 MG/0.8 ML SYRINGE SC SCH ×2 (08:19→21:04)
[2019-05-02] MEDS: cloNIDine 0.1 MG TAB PO SCH ×2 (08:20→21:03)
[2019-05-02] MEDS: Aspirin 81 mg Enteric Coated Tablet PO SCH (08:20)
[2019-05-02] MEDS: guaiFENesin ER 600 MG TAB PO SCH ×2 (08:20→21:03)
[2019-05-02] MEDS: Clopidogrel Bisulfate 75 MG TAB PO SCH (08:20)
[2019-05-02] MEDS: Valsartan 80 MG TAB PO SCH ×2 (08:20→21:04)
[2019-05-02] MEDS: Insulin Glargine 20 UNITS in Pre-Filled Syringe 1 EACH SC SCH (08:28)
--- NOTE | 2019-05-02 08:39 | PRG ---
DATE OF SERVICE: 05/02/2019 SUBJECTIVE: Ms. Kurtz is having severe wheezing this morning. She said this is common for her in the mornings. She is not having chest pain. OBJECTIVE: VITAL SIGNS: Her blood pressure is 155/74, pulse is 90. LUNGS: Severe diffuse expiratory wheezing with increased respiratory rate of 30. CARDIAC: Normal S1, normal S2. ABDOMEN: Soft, nontender. EXTREMITIES: No edema. ASSESSMENT: 1. Severe diffuse atherosclerotic heart disease, has had repeat cardiac catheterization showing distal disease. No other intervention feasible. 2. Chronic obstructive pulmonary disease with reactive airway disease. 3. History of smoking. She has not smoked obviously since she has been in the hospital. 4. Substance abuse. PLAN: 1. She is on steroids. 2. She is on inhaled bronchodilators. 3. She is on aspirin and enoxaparin in view of the unstable angina symptoms. 4. Do a BNP. If it is high, consideration for some Lasix. In fact, in the meantime, go ahead and give her a dose of 20 of Lasix IV in case there is any evidence of diastolic heart failure. Job ID: [id number]
--- NOTE | 2019-05-02 08:41 | PRG ---
DATE OF SERVICE: 05/02/2019 SUBJECTIVE: The patient is eating breakfast. She looks about the same as she has looked. OBJECTIVE: VITAL SIGNS: On exam, temperature of 96.8, pulse 73, blood pressure 155/74, and O2 saturation 95%. HEENT: Unremarkable. NECK: She has audible expiratory noises coming from tracheal region. LUNGS: Very diminished wheezing. CARDIAC: S1 and S2. Regular. ABDOMEN: Soft. EXTREMITIES: No edema. LABORATORY DATA: White blood cell count 7.3, hematocrit 39.7, and platelet count 145. Sodium 136, potassium 4.9, chloride 106, CO2 of 21, BUN 14, creatinine 0.7, and glucose 307. ASSESSMENT: 1. Chronic obstructive pulmonary disease with exacerbation. 2. Chronic hypoxic and hypercapnic respiratory failure. 3. Likely some degree of bronchial pneumonia. 4. Systolic heart failure with mitral regurgitation. PLAN: 1. Continue nebs with EzPAP. 2. Continue antibiotics. 3. We would leave in IMCU until respiratory status is better. Job ID: [id number]
[2019-05-02] MEDS: Calcium Carbonate 500 MG ChewTAB PO PRN ×2 (09:09→23:30)
--- NOTE | 2019-05-02 09:28 | PRG ---
DATE OF SERVICE: 05/01/2019 SUBJECTIVE: A 64-year-old female with extensive past medical history, presented to the hospital 2 days ago with shortness of breath. She is currently admitted to [facility] for respiratory failure along with unstable angina. She continues to have intermittent chest discomfort. No fever or chills reported. She denies any diaphoresis, nausea, or vomiting. REVIEW OF SYSTEMS: As discussed above. Telemetry monitoring by my review showed sinus rhythm. CURRENT MEDICATIONS: Reviewed. PHYSICAL EXAMINATION: VITAL SIGNS: Temperature 97.6, blood pressure 135/72, heart rate of 69, respirations of 20, O2 saturation 96%. GENERAL: A 64-year-old female, in no apparent distress. LUNGS: Clear to auscultation bilaterally with scattered rhonchi and few rales at bases. No accessory muscle use. HEART: S1, S2 present. Regular. Healed midline scar from previous CABG. ABDOMEN: Soft. Bowel sounds present. EXTREMITIES: No calf tenderness. NEUROLOGIC: Grossly nonfocal. PSYCHIATRIC: Alert, awake, oriented x3. Normal affect. LABORATORY FINDINGS: Urine drug screen is positive for PCP and cocaine. Creatinine 0.9 with BUN 17, sodium 137, potassium 4.7. Troponin was 0.035. TSH was 0.179 with normal free T4. Hemoglobin 12.4. DIAGNOSTIC DATA: Echocardiogram showed ejection fraction of 45% to 50% with moderate mitral regurgitation. Chest x-ray by my review showed chronic lung changes. IMPRESSION: 1. Acute hypoxic respiratory failure secondary to chronic obstructive pulmonary disease exacerbation. 2. Unstable angina. 3. Polysubstance abuse. The patient is positive for PCP and cocaine. 4. Sinus pause of 3.3 seconds on 30 April 2018. 5. Moderate mitral regurgitation. 6. Coronary artery disease, status post CABG with last cardiac catheterization in 2018. 7. Tobacco dependence. 8. Hyperlipidemia. PLAN: The patient will be monitored in the [facility]. We will continue long-acting nitrates. We will hold beta blockers due to cocaine abuse. We will reduce valsartan dose due to episode of hypotension yesterday. Continue aspirin and Plavix. Reduce amlodipine dose to 5 mg daily. Job ID: [id number]
[2019-05-02] MEDS: cefTRIAXone\\ROCEPHIN 2 GM in Sodium Chloride 0.9% 100 ML IVPB SCH (17:17)
[2019-05-02] MEDS: Azithromycin 500 MG in Sodium Chloride 0.9% 250 ML 250 ML IVPB SCH (17:18)
[2019-05-02] MEDS: Atorvastatin Calcium 40 MG TAB PO SCH (21:03)
[2019-05-02] MEDS: Insulin Glargine 10 UNITS in Pre-Filled Syringe 1 EACH SC SCH (21:06)
[2019-05-03 03:57] LABS: #Basophils 0.1 thou/uL (0.0-0.2); #Lymphocytes 1.6 thou/uL (1.20-3.40); #Monocytes 0.8 thou/uL (0.11-0.59); #Neutrophils 5.3 thou/uL (1.40-6.50); %Basophils 1.7 % (0.0-1.0); %Eosinophils 0.2 % (0.0-10.0); %Lymphocytes 20.5 % (21.0-51.0); %Monocytes 10.2 % (0.0-10.0); %Neutrophils 67.4 % (42.0-75.0); Hemoglobin 12.3 g/dL (12.0-16.0); Mean Corpuscular HGB CONC 32.8 g/dL (32.0-36.0); Mean Corpuscular Hemoglobin 27.9 pg (27.0-31.0); Mean Corpuscular Volume 85.1 fL (78.0-98.0); Mean Platelet Volume 10.6 fL (7.4-10.4); Platelet Count 149 thou/uL (130-400); RBC Distribution Width 13.4 % (11.5-14.5); Red Blood Cell (RBC) Count 4.39 mill/uL (4.20-5.40); White Blood Cell (WBC) Count 7.9 thou/uL (4.8-10.8)
[2019-05-03 04:19] LABS: Anion Gap 11 mmol/L (10-20); BUN (Urea Nitrogen) 16 mg/dL (9.8-20.1); Calc. Creatinine Clearance 84 mL/min (70-130); Carbon Dioxide 26 mmol/L (23-31); Chloride 102 mmol/L (98-107); Estimated GFR-MDRD Greater than 90; Glucose 279 mg/dL (80-115); Potassium 4.5 mmol/L (3.5-5.1); Sodium 134 mmol/L (136-145)
[2019-05-03] MEDS: methylPREDNISolone Sod Succ 40 MG VIAL IVP SCH ×3 (06:32→17:02)
[2019-05-03] MEDS: Nitroglycerin 2% Ointment 1 INCH/1 GM Packet TOP SCH ×4 (06:32→23:51)
[2019-05-03] MEDS: HumaLOG 300 UNITS/3 ML VIAL SC PRN ×3 (06:35→20:27)
[2019-05-03] MEDS: Mometasone/Formoterol 120 PUFF INHALER INH SCH ×2 (07:22→19:02)
[2019-05-03] MEDS: Polyethylene Glycol 3350 17 GM Packet PO SCH (09:51)
[2019-05-03] MEDS: Clopidogrel Bisulfate 75 MG TAB PO SCH (09:52)
[2019-05-03] MEDS: Insulin Glargine 20 UNITS in Pre-Filled Syringe 1 EACH SC SCH (09:52)
[2019-05-03] MEDS: Enoxaparin Sodium 80 MG/0.8 ML SYRINGE SC SCH ×2 (09:52→20:24)
[2019-05-03] MEDS: Famotidine 20 MG TAB PO SCH ×2 (09:52→20:25)
[2019-05-03] MEDS: Aspirin 81 mg Enteric Coated Tablet PO SCH (09:52)
[2019-05-03] MEDS: guaiFENesin ER 600 MG TAB PO SCH ×2 (09:52→20:25)
[2019-05-03] MEDS: cloNIDine 0.1 MG TAB PO SCH ×2 (09:52→20:25)
[2019-05-03] MEDS: Valsartan 80 MG TAB PO SCH ×2 (09:53→20:26)
[2019-05-03] MEDS: HYDROcodone/Acetaminophen 7.5/325 mg Tablet PO PRN ×2 (10:12→20:31)
--- NOTE | 2019-05-03 11:12 | PDOC.CPN ---
- Subjective Date: 05/03/19 Time: 11:12 Interval history: Feeling better. Less SOB. - Objective Allergies/Adverse Reactions: Allergies Allergy/AdvReac Type Severity Reaction Status Date / Time No Known Drug Allergies Allergy Unknown Verified 04/29/19 23:57 Visit Medications: Current Medications Acetaminophen (Tylenol) 650 mg PO Q4H PRN PRN Reason: Headache/Fever/Mild Pain (1-3) Last Admin: 05/02/19 02:19 Dose: 650 mg Hydrocodone Bitart/Acetaminophen ([place] 5/325) 1 tab PO Q4H PRN PRN Reason: Moderate Pain (4-6) Hydrocodone Bitart/Acetaminophen ([place] 7.5/325) 1 tab PO Q4H PRN PRN Reason: Severe Pain (7-10) Last Admin: 05/03/19 10:12 Dose: 1 tab Albuterol/Ipratropium (Duoneb) 3 ml NEB [id number] PRN PRN Reason: SOB &/or Wheezing Albuterol/Ipratropium (Duoneb) 3 ml EZPAP [id number] [facility] Last Admin: 05/03/19 10:43 Dose: 3 ml Amlodipine Besylate (Norvasc) 5 mg PO BID [facility] Last Admin: 05/01/19 21:21 Dose: Not Given Aspirin (Ecotrin) 81 mg PO DAILY [facility] Last Admin: 05/03/19 09:52 Dose: 81 mg Atorvastatin Calcium (Lipitor) 40 mg PO HS [facility] Last Admin: 05/02/19 21:03 Dose: 40 mg Benzonatate (Tessalon) 100 mg PO Q4H PRN PRN Reason: Cough Last Admin: 04/30/19 07:42 Dose: 100 mg Bisacodyl (Dulcolax) 10 mg PO DAILYPRN PRN PRN Reason: Constipation Last Admin: 04/30/19 10:50 Dose: 10 mg Calcium Carbonate (Tums) 1,000 mg PO Q4H PRN PRN Reason: Heartburn or Indigestion Last Admin: 05/02/19 23:30 Dose: 1,000 mg Clonidine (Catapres) 0.1 mg PO BID [facility] Last Admin: 05/03/19 09:52 Dose: 0.1 mg Clopidogrel Bisulfate (Plavix) 75 mg PO DAILY [facility] Last Admin: 05/03/19 09:52 Dose: 75 mg Dextrose/Water (Dextrose 50%) 25 gm SLOW IVP PRN PRN PRN Reason: Hypoglycemia Diphenhydramine HCl (Benadryl) 25 mg PO Q6H PRN PRN Reason: Itching & Insomnia Docusate Sodium (Colace) 100 mg PO BIDPRN PRN PRN Reason: Constipation Enoxaparin Sodium (Lovenox) 70 mg SC 0900,2100 [facility] Last Admin: 05/03/19 09:52 Dose: 70 mg Famotidine (Pepcid) 20 mg PO BID [facility] Last Admin: 05/03/19 09:52 Dose: 20 mg Glucagon (Glucagon) 1 mg IM PRN PRN PRN Reason: Hypoglycemia Guaifenesin (Mucinex) 600 mg PO Q12HR [facility] Last Admin: 05/03/19 09:52 Dose: 600 mg Azithromycin 500 mg/ Sodium (Chloride) 250 mls @ 250 mls/hr IVPB Q24HR [facility] Last Admin: 05/02/19 17:18 Dose: 250 mls Ceftriaxone Sodium 2 gm/ (Sodium Chloride) 100 mls @ 200 mls/hr IVPB Q24HR [facility] Last Admin: 05/02/19 17:17 Dose: 100 mls Dextrose/Water (D5w) 1,000 mls @ 0 mls/hr IV .Q0M PRN PRN Reason: Hypoglycemia Insulin Glargine 20 units/ (Miscellaneous Medication) 0.2 mls @ 0 mls/hr SC QAM [facility] Last Admin: 05/03/19 09:52 Dose: 0.2 mls Insulin Glargine 10 units/ (Miscellaneous Medication) 0.1 mls @ 0 mls/hr SC HS [facility] Last Admin: 05/02/19 21:06 Dose: 0.1 mls Insulin Human Lispro (Humalog) 0 units SC .BEDTIME SLIDING SC PRN PRN Reason: Bedtime Correctional Scale Last Admin: 05/01/19 20:50 Dose: 4 unit Insulin Human Lispro (Humalog) 0 units SC .MODERATE SLIDING SC PRN PRN Reason: Moderate Correctional Scale Last Admin: 05/03/19 06:35 Dose: 4 unit Isosorbide Mononitrate (Imdur) 60 mg PO DAILY [facility] Last Admin: 02/08/20 09:53 Dose: 60 mg Labetalol HCl (Normodyne) 10 mg SLOW IVP Q4H PRN PRN Reason: SBP Greater Than 180 Loperamide HCl (Imodium) 2 mg PO PRN PRN PRN Reason: Diarrhea/Loose Stools Melatonin (Melatonin) 3 mg PO HS PRN PRN Reason: Insomnia Methylprednisolone Sodium Succinate (Solu-Medrol) 40 mg IVP Q6HR [facility] Last Admin: 05/03/19 06:32 Dose: 40 mg Mometasone Furoate/Formoterol Fumar (Dulera 100 Mcg/5 Mcg Inhaler) 1 puff INH BID-RT [facility] Last Admin: 05/03/19 07:22 Dose: 1 puff Nitroglycerin (Nitrostat) 0.4 mg SL Q5MIN PRN PRN Reason: Chest Pain Last Admin: 05/02/19 02:20 Dose: 0.4 mg Nitroglycerin (Nitro-Bid 2% Ointment) 1 inch TOP Q6HR [facility] Last Admin: 05/03/19 06:32 Dose: 1 inch Ondansetron HCl (Zofran Odt) 4 mg PO Q6H PRN PRN Reason: Nausea/Vomiting Ondansetron HCl (Zofran) 4 mg IVP Q6H PRN PRN Reason: Nausea/Vomiting Last Admin: 04/30/19 17:48 Dose: 4 mg Polyethylene Glycol (Miralax) 17 gm PO DAILY [facility] Last Admin: 05/03/19 09:51 Dose: 17 gm Ranolazine (Ranexa) 1,000 mg PO BID [facility] Last Admin: 05/03/19 09:52 Dose: 1,000 mg Sodium Chloride (Flush - Normal Saline) 10 ml IVF Q12HR [facility] Last Admin: 05/03/19 09:53 Dose: 10 ml Sodium Chloride (Flush - Normal Saline) 10 ml IVF PRN PRN PRN Reason: Saline Flush Throat Lozenges (Cepastat Lozenges) 1 justina PO Q2H PRN PRN Reason: Sore Throat Valsartan (Diovan) 80 mg PO BID [facility] Last Admin: 05/03/19 09:53 Dose: 80 mg Vital Signs & Weight: Vital Signs Temp Pulse Resp BP Pulse Ox 05/03/19 10:43 76 21 H 96 05/03/19 09:52 161/82 H 05/03/19 08:00 99 05/03/19 07:39 96.2 F L 05/03/19 07:24 98 05/03/19 07:21 70 34 H 98 05/03/19 04:00 98.2 F 05/02/19 23:29 97.2 F L Admit Weight 147 lb 11.2 oz Weight 158 lb 9.6 oz - Physical Exam General: alert & oriented x3 Neck: no masses, no bruit Cardiac: regular rate Lungs: wheezes, bibasilar rales Extremities: no edema - Labs Result Diagrams: 05/03/19 03:45 05/03/19 03:45 Troponin/CKMB CK-MB (CK-2) 1.1 ng/mL (0-6.6) 04/30/19 08:56 Troponin I 0.022 ng/mL (< 0.028) 05/01/19 16:19 - Assessment/Plan Assessment/Plan: Diffuse CAD not amenable to intervention COPD Tobacco use BNP elevated Add one dose lasix Neb treatments inoperable CAD Treat medically Stop cocaine use
--- NOTE | 2019-05-03 11:42 | PRG ---
DATE OF SERVICE: 05/03/2019 SUBJECTIVE: Shawnee Kurtz is a 64-year-old female, COPD exacerbation, doing better. OBJECTIVE: VITAL SIGNS: Pulse 76, respiratory rate is 21, saturations 97% on 2 L, and blood pressure 173/96. CHEST: Decreased breath sounds. Prolonged expiration. No wheezing. CARDIAC: Normal S1 and S2. No gallops. ABDOMEN: No masses. LABORATORY DATA: Unremarkable. ASSESSMENT: 1. Chronic obstructive pulmonary disease exacerbation. 2. Bronchitis. PLAN: Continue present treatment, aggressive PT, supportive care. Consider deescalating antibiotics, switching to p.o. medication. Job ID: [id number]
[2019-05-03] MEDS ORDERED: Furosemide 40 MG/4 ML VIAL SLOW IVP SCH (13:45)
[2019-05-03] MEDS: cefTRIAXone\\ROCEPHIN 2 GM in Sodium Chloride 0.9% 100 ML IVPB SCH (17:02)
[2019-05-03] MEDS: Azithromycin 500 MG in Sodium Chloride 0.9% 250 ML 250 ML IVPB SCH (17:48)
--- NOTE | 2019-05-03 19:32 | PDOC.HOSPP ---
- Subjective Encounter Date: 05/03/19 Encounter Time: 16:00 Subjective: Patient seen and examined for CP/COPD exacerbation. No CP. SOB improving. No new complaints. No overnight events - Objective Vital Signs & Weight: Vital Signs (12 hours) Temp Pulse Pulse Pulse Resp BP BP 05/03/19 19:04 05/03/19 19:02 05/03/19 16:07 97.7 F 05/03/19 14:55 64 18 05/03/19 13:55 79 105 H 137/82 05/03/19 11:54 97.4 F L 05/03/19 10:43 76 21 H 05/03/19 09:52 161/82 H 05/03/19 08:00 05/03/19 07:39 96.2 F L BP Pulse Ox Pulse Ox 05/03/19 19:04 96 05/03/19 19:02 98 05/03/19 16:07 05/03/19 14:55 95 05/03/19 13:55 135/63 97 05/03/19 11:54 05/03/19 10:43 96 05/03/19 09:52 05/03/19 08:00 99 05/03/19 07:39 Weight Admit Weight 147 lb 11.2 oz Weight 158 lb 9.6 oz Most Recent Monitor Data Heart Rate from ECG 86 NIBP 144/77 NIBP BP-Mean 99 Respiration from ECG 20 SpO2 94 I&O: 05/02/19 05/03/19 05/04/19 06:59 06:59 06:59 Intake Total 1200 820 250 Output Total 750 900 800 Balance 450 -80 -550 Result Diagrams: 05/03/19 03:45 05/03/19 03:45 Additional Labs: Accuchecks 05/03/19 05/03/19 05/03/19 16:37 10:48 05:38 POC Glucose 443 H 203 H 252 H 05/02/19 20:47 POC Glucose 231 H EKG Reviewed by me: Yes (Tele SR) Hospitalist ROS - Review of Systems Respiratory: reports: SOB with excertion, wheezing. denies: cough, dry, shortness of breath, hemoptysis, pleuritic pain, sputum, other Cardiovascular: denies: chest pain, palpitations, orthopnea, paroxysmal noc. dyspnea, edema, light headedness, other Gastrointestinal: denies: nausea, vomiting, abdominal pain, diarrhea, constipation, melena, hematochezia, other - Medication Medications: Active Medications Generic Name Dose Route Start Last Admin Trade Name Freq PRN Reason Stop Dose Admin Acetaminophen 650 mg 04/29/19 15:19 05/02/19 02:19 Tylenol PO 650 mg Q4H PRN Administration Headache/Fever/Mild Pain (1-3) Hydrocodone Bitart/Acetaminophen 1 tab 04/29/19 15:19 05/03/19 10:12 [place] 7.5/325 PO 1 tab Q4H PRN Administration Severe Pain (7-10) Albuterol/Ipratropium 3 ml 05/01/19 11:00 05/03/19 19:04 Duoneb EZPAP 3 ml [id number] SAMMY Administration Amlodipine Besylate 5 mg 05/01/19 21:00 05/01/19 21:21 Norvasc PO Not Given BID SAMMY Aspirin 81 mg 04/30/19 09:00 05/03/19 09:52 Ecotrin PO 81 mg DAILY SAMMY Administration Atorvastatin Calcium 40 mg 04/29/19 21:00 05/02/19 21:03 Lipitor PO 40 mg HS SAMMY Administration Benzonatate 100 mg 04/29/19 15:24 04/30/19 07:42 Tessalon PO 100 mg Q4H PRN Administration Cough Bisacodyl 10 mg 04/29/19 15:19 04/30/19 10:50 Dulcolax PO 10 mg DAILYPRN PRN Administration Constipation Calcium Carbonate 1,000 mg 04/29/19 15:19 05/02/19 23:30 Tums PO 1,000 mg Q4H PRN Administration Heartburn or Indigestion Clonidine 0.1 mg 05/01/19 21:00 05/03/19 09:52 Catapres PO 0.1 mg BID SAMMY Administration Clopidogrel Bisulfate 75 mg 04/30/19 09:00 05/03/19 09:52 Plavix PO 75 mg DAILY SAMMY Administration Enoxaparin Sodium 70 mg 05/01/19 21:00 05/03/19 09:52 Lovenox SC 70 mg 0900,2100 SAMMY Administration Famotidine 20 mg 04/29/19 21:00 05/03/19 09:52 Pepcid PO 20 mg BID SAMMY Administration Guaifenesin 600 mg 05/01/19 21:00 05/03/19 09:52 Mucinex PO 600 mg Q12HR SAMMY Administration Insulin Glargine 20 units/ 0.2 mls @ 0 mls/hr 04/30/19 09:00 05/03/19 09:52 Miscellaneous Medication SC 0.2 mls QAM SAMMY Administration Insulin Glargine 10 units/ 0.1 mls @ 0 mls/hr 05/02/19 21:00 05/02/19 21:06 Miscellaneous Medication SC 0.1 mls HS SAMMY Administration Insulin Human Lispro 0 units 04/29/19 15:27 05/01/19 20:50 Humalog SC 4 unit .BEDTIME SLIDING SC PRN Administration Bedtime Correctional Scale Insulin Human Lispro 0 units 05/02/19 06:03 05/03/19 17:02 Humalog SC 10 unit .MODERATE SLIDING SC PRN Administration Moderate Correctional Scale Isosorbide Mononitrate 60 mg 04/30/19 09:00 05/03/19 09:53 Imdur PO 60 mg DAILY SAMMY Administration Mometasone Furoate/Formoterol Fumar 1 puff 04/29/19 18:30 05/03/19 19:02 Dulera 100 Mcg/5 Mcg Inhaler INH 1 puff BID-RT SAMMY Administration Nitroglycerin 0.4 mg 04/29/19 15:18 05/02/19 02:20 Nitrostat SL 0.4 mg Q5MIN PRN Administration Chest Pain Nitroglycerin 1 inch 05/01/19 12:00 05/03/19 17:02 Nitro-Bid 2% Ointment TOP 1 inch Q6HR SAMMY Administration Ondansetron HCl 4 mg 04/29/19 15:19 04/30/19 17:48 Zofran IVP 4 mg Q6H PRN Administration Nausea/Vomiting Polyethylene Glycol 17 gm 05/02/19 09:00 05/03/19 09:51 Miralax PO 17 gm DAILY SAMMY Administration Ranolazine 1,000 mg 04/29/19 21:00 05/03/19 09:52 Ranexa PO 1,000 mg BID SAMMY Administration Sodium Chloride 10 ml 05/01/19 21:00 05/03/19 09:53 Flush - Normal Saline IVF 10 ml Q12HR SAMMY Administration Valsartan 80 mg 05/01/19 21:00 05/03/19 09:53 Diovan PO 80 mg BID SAMMY Administration - Exam General Appearance: NAD Heart: RRR, no gallops, no rubs, normal peripheral pulses Respiratory: no rales, no ronchi, normal chest expansion, wheezes Gastrointestinal: non-tender, non-distended, normal bowel sounds, tender to palpation Extremities: no cyanosis, no edema Neurological: no new deficit Psychiatric: normal affect, A&O x 3 Hosp A/P - Plan DVT proph w/lovenox, DVT proph w/SCDs Acute respiratory failure with hypoxemia Unstable angina COPD exacerbation HTN CAD Polysubstance abuse Other issues per previous notes PLAN: Change Atbx and Steroids to PO Cont ASA/Plavix Cont Nebs Q4h on full Lovenox Cont Lantus 20 units QAM and 10 units HS with moderate sliding scale Cont current dose of Clonidine/Valsartan/Imdur Amlodipine on hold No betablockers due to Cocaine abuse AM labs
[2019-05-03] MEDS: Cefdinir 300 MG CAP PO SCH (20:25)
[2019-05-03] MEDS: Atorvastatin Calcium 40 MG TAB PO SCH (20:25)
[2019-05-03] MEDS: Doxycycline 100 MG CAP PO SCH (20:26)
[2019-05-03] MEDS: Insulin Glargine 10 UNITS in Pre-Filled Syringe 1 EACH SC SCH (20:27)
[2019-05-04 03:58] LABS: #Basophils 0.1 thou/uL (0.0-0.2); #Lymphocytes 2.3 thou/uL (1.20-3.40); #Monocytes 1.2 thou/uL (0.11-0.59); #Neutrophils 6.7 thou/uL (1.40-6.50); %Eosinophils 0.2 % (0.0-10.0); %Lymphocytes 22.5 % (21.0-51.0); %Monocytes 11.2 % (0.0-10.0); %Neutrophils 65.1 % (42.0-75.0); Hemoglobin 12.4 g/dL (12.0-16.0); Mean Corpuscular HGB CONC 32.3 g/dL (32.0-36.0); Mean Corpuscular Hemoglobin 27.6 pg (27.0-31.0); Mean Corpuscular Volume 85.2 fL (78.0-98.0); Mean Platelet Volume 10.7 fL (7.4-10.4); Platelet Count 168 thou/uL (130-400); RBC Distribution Width 13.3 % (11.5-14.5); Red Blood Cell (RBC) Count 4.49 mill/uL (4.20-5.40); White Blood Cell (WBC) Count 10.3 thou/uL (4.8-10.8)
[2019-05-04 04:20] LABS: Anion Gap 13 mmol/L (10-20); BUN (Urea Nitrogen) 22 mg/dL (9.8-20.1); Calc. Creatinine Clearance 80 mL/min (70-130); Calcium 8.9 mg/dL (7.8-10.44); Carbon Dioxide 26 mmol/L (23-31); Chloride 101 mmol/L (98-107); Estimated GFR-MDRD 88; Glucose 279 mg/dL (80-115); Potassium 4.2 mmol/L (3.5-5.1); Sodium 136 mmol/L (136-145)
[2019-05-04] MEDS: Nitroglycerin 2% Ointment 1 INCH/1 GM Packet TOP SCH ×3 (05:32→18:26)
[2019-05-04] MEDS: HumaLOG 300 UNITS/3 ML VIAL SC PRN ×3 (05:53→20:55)
[2019-05-04] MEDS: Mometasone/Formoterol 120 PUFF INHALER INH SCH ×2 (08:24→19:38)
--- NOTE | 2019-05-04 08:29 | PDOC.CPN ---
- Subjective Date: 05/04/19 Time: 08:28 Interval history: feeling better. Less SOB - Objective Allergies/Adverse Reactions: Allergies Allergy/AdvReac Type Severity Reaction Status Date / Time No Known Drug Allergies Allergy Unknown Verified 04/29/19 23:57 Visit Medications: Current Medications Acetaminophen (Tylenol) 650 mg PO Q4H PRN PRN Reason: Headache/Fever/Mild Pain (1-3) Last Admin: 05/02/19 02:19 Dose: 650 mg Hydrocodone Bitart/Acetaminophen ([place] 5/325) 1 tab PO Q4H PRN PRN Reason: Moderate Pain (4-6) Hydrocodone Bitart/Acetaminophen ([place] 7.5/325) 1 tab PO Q4H PRN PRN Reason: Severe Pain (7-10) Last Admin: 05/03/19 20:31 Dose: 1 tab Albuterol/Ipratropium (Duoneb) 3 ml NEB [id number] PRN PRN Reason: SOB &/or Wheezing Albuterol/Ipratropium (Duoneb) 3 ml EZPAP [id number] [facility] Last Admin: 05/04/19 08:10 Dose: 3 ml Amlodipine Besylate (Norvasc) 5 mg PO BID [facility] Last Admin: 05/01/19 21:21 Dose: Not Given Aspirin (Ecotrin) 81 mg PO DAILY [facility] Last Admin: 05/03/19 09:52 Dose: 81 mg Atorvastatin Calcium (Lipitor) 40 mg PO HS [facility] Last Admin: 05/03/19 20:25 Dose: 40 mg Benzonatate (Tessalon) 100 mg PO Q4H PRN PRN Reason: Cough Last Admin: 04/30/19 07:42 Dose: 100 mg Bisacodyl (Dulcolax) 10 mg PO DAILYPRN PRN PRN Reason: Constipation Last Admin: 04/30/19 10:50 Dose: 10 mg Calcium Carbonate (Tums) 1,000 mg PO Q4H PRN PRN Reason: Heartburn or Indigestion Last Admin: 05/02/19 23:30 Dose: 1,000 mg Cefdinir (Omnicef) 300 mg PO BID [facility] Last Admin: 05/03/19 20:25 Dose: 300 mg Clonidine (Catapres) 0.1 mg PO BID [facility] Last Admin: 05/03/19 20:25 Dose: 0.1 mg Clopidogrel Bisulfate (Plavix) 75 mg PO DAILY [facility] Last Admin: 05/03/19 09:52 Dose: 75 mg Dextrose/Water (Dextrose 50%) 25 gm SLOW IVP PRN PRN PRN Reason: Hypoglycemia Diphenhydramine HCl (Benadryl) 25 mg PO Q6H PRN PRN Reason: Itching & Insomnia Docusate Sodium (Colace) 100 mg PO BIDPRN PRN PRN Reason: Constipation Doxycycline Hyclate (Vibramycin) 100 mg PO BID [facility] Last Admin: 05/03/19 20:26 Dose: 100 mg Enoxaparin Sodium (Lovenox) 70 mg SC 0900,2100 [facility] Last Admin: 05/03/19 20:24 Dose: 70 mg Famotidine (Pepcid) 20 mg PO BID [facility] Last Admin: 05/03/19 20:25 Dose: 20 mg Glucagon (Glucagon) 1 mg IM PRN PRN PRN Reason: Hypoglycemia Guaifenesin (Mucinex) 600 mg PO Q12HR [facility] Last Admin: 05/03/19 20:25 Dose: 600 mg Dextrose/Water (D5w) 1,000 mls @ 0 mls/hr IV .Q0M PRN PRN Reason: Hypoglycemia Insulin Glargine 20 units/ (Miscellaneous Medication) 0.2 mls @ 0 mls/hr SC QAM [facility] Last Admin: 05/03/19 09:52 Dose: 0.2 mls Insulin Glargine 10 units/ (Miscellaneous Medication) 0.1 mls @ 0 mls/hr SC HS [facility] Last Admin: 05/03/19 20:27 Dose: 0.1 mls Insulin Human Lispro (Humalog) 0 units SC .BEDTIME SLIDING SC PRN PRN Reason: Bedtime Correctional Scale Last Admin: 05/01/19 20:50 Dose: 4 unit Insulin Human Lispro (Humalog) 0 units SC .MODERATE SLIDING SC PRN PRN Reason: Moderate Correctional Scale Last Admin: 05/04/19 05:53 Dose: 4 unit Isosorbide Mononitrate (Imdur) 60 mg PO DAILY [facility] Last Admin: 05/03/19 09:53 Dose: 60 mg Labetalol HCl (Normodyne) 10 mg SLOW IVP Q4H PRN PRN Reason: SBP Greater Than 180 Loperamide HCl (Imodium) 2 mg PO PRN PRN PRN Reason: Diarrhea/Loose Stools Melatonin (Melatonin) 3 mg PO HS PRN PRN Reason: Insomnia Last Admin: 05/03/19 20:25 Dose: 3 mg Mometasone Furoate/Formoterol Fumar (Dulera 100 Mcg/5 Mcg Inhaler) 1 puff INH BID-RT [facility] Last Admin: 05/04/19 08:24 Dose: 1 puff Nitroglycerin (Nitrostat) 0.4 mg SL Q5MIN PRN PRN Reason: Chest Pain Last Admin: 05/02/19 02:20 Dose: 0.4 mg Nitroglycerin (Nitro-Bid 2% Ointment) 1 inch TOP Q6HR [facility] Last Admin: 05/04/19 05:32 Dose: 1 inch Ondansetron HCl (Zofran Odt) 4 mg PO Q6H PRN PRN Reason: Nausea/Vomiting Ondansetron HCl (Zofran) 4 mg IVP Q6H PRN PRN Reason: Nausea/Vomiting Last Admin: 04/30/19 17:48 Dose: 4 mg Polyethylene Glycol (Miralax) 17 gm PO DAILY [facility] Last Admin: 05/03/19 09:51 Dose: 17 gm Prednisone (Prednisone) 20 mg PO BID[facility] Ranolazine (Ranexa) 1,000 mg PO BID [facility] Last Admin: 05/03/19 20:25 Dose: 1,000 mg Sodium Chloride (Flush - Normal Saline) 10 ml IVF Q12HR [facility] Last Admin: 05/03/19 20:26 Dose: 10 ml Sodium Chloride (Flush - Normal Saline) 10 ml IVF PRN PRN PRN Reason: Saline Flush Throat Lozenges (Cepastat Lozenges) 1 justina PO Q2H PRN PRN Reason: Sore Throat Valsartan (Diovan) 80 mg PO BID [facility] Last Admin: 05/03/19 20:26 Dose: 80 mg Vital Signs & Weight: Vital Signs Temp Pulse Resp Pulse Ox 05/04/19 08:10 76 20 95 05/04/19 07:19 97.3 F L 05/04/19 03:37 97.7 F 05/03/19 23:43 98.7 F Admit Weight 147 lb 11.2 oz Weight 158 lb 9.6 oz - Physical Exam General: no apparent distress Neck: no masses Cardiac: regular rate, regular rhythm Lungs: normal exam Neuro: grossly intact Abdomen: active bowel sounds - Labs Result Diagrams: 05/04/19 03:30 05/04/19 03:30 Troponin/CKMB CK-MB (CK-2) 1.1 ng/mL (0-6.6) 04/30/19 08:56 Troponin I 0.022 ng/mL (< 0.028) 05/01/19 16:19 - Assessment/Plan Assessment/Plan: New onset cardiomyopathy bronchitis hyperthyroidism Plan 05/04 No changes ACEI, lasix stop drug use BB if tolerated ACEI, lasix As long as stable, recomend aggressive medical therapy given hypoerthyroidism Will need lifevest prior to DC Abx
[2019-05-04] MEDS: Aspirin 81 mg Enteric Coated Tablet PO SCH (10:05)
[2019-05-04] MEDS: predniSONE 20 MG TAB PO SCH ×2 (10:06→16:16)
[2019-05-04] MEDS: Valsartan 80 MG TAB PO SCH ×2 (10:06→20:50)
[2019-05-04] MEDS: Doxycycline 100 MG CAP PO SCH ×2 (10:07→20:50)
[2019-05-04] MEDS: Cefdinir 300 MG CAP PO SCH ×2 (10:07→20:50)
[2019-05-04] MEDS: Clopidogrel Bisulfate 75 MG TAB PO SCH (10:07)
[2019-05-04] MEDS: guaiFENesin ER 600 MG TAB PO SCH ×2 (10:07→20:50)
[2019-05-04] MEDS: Enoxaparin Sodium 80 MG/0.8 ML SYRINGE SC SCH ×2 (10:08→20:49)
[2019-05-04] MEDS: cloNIDine 0.1 MG TAB PO SCH ×2 (10:08→21:33)
[2019-05-04] MEDS: Famotidine 20 MG TAB PO SCH ×2 (10:08→20:51)
[2019-05-04] MEDS: Polyethylene Glycol 3350 17 GM Packet PO SCH (10:09)
[2019-05-04] MEDS: Insulin Glargine 20 UNITS in Pre-Filled Syringe 1 EACH SC SCH (10:40)
--- NOTE | 2019-05-04 12:18 | PRG ---
DATE OF SERVICE: 05/04/2019 SUBJECTIVE: This morning, she is doing better, less short of breath, less cough. OBJECTIVE: VITAL SIGNS: Pulse 72, respiratory rate 21, saturations 96% on room air, and blood pressure 148/79. CHEST: Decreased breath sounds. No wheezing. CARDIAC: Normal S1 and S2. No gallops. ABDOMEN: No masses. LABORATORY DATA: Unremarkable. ASSESSMENT AND PLAN: Congestive heart failure, chronic obstructive pulmonary disease, and respiratory failure. Continue steroids, neb treatment, antibiotics. We will follow. Job ID: [id number]
[2019-05-04] MEDS: Acetaminophen 325 MG TAB PO PRN (16:15)
[2019-05-04] MEDS: Insulin Glargine 10 UNITS in Pre-Filled Syringe 1 EACH SC SCH (20:49)
[2019-05-04] MEDS: Atorvastatin Calcium 40 MG TAB PO SCH (20:50)
[2019-05-04] MEDS ORDERED: cloNIDine 0.1 MG TAB PO SCH (21:00)
--- NOTE | 2019-05-04 21:46 | PDOC.HOSPP ---
- Subjective Encounter Date: 05/04/19 Encounter Time: 17:00 Subjective: Patient seen and examined for Resp failure. SOB improving. No CP. No new complaints. No overnight events - Objective Vital Signs & Weight: Vital Signs (12 hours) Temp Pulse Resp BP BP Pulse Ox 05/04/19 21:33 121/71 05/04/19 21:12 121/71 05/04/19 19:59 95 05/04/19 19:40 93 L 05/04/19 19:39 99 22 H 93 L 05/04/19 19:38 93 L 05/04/19 19:10 98.0 F 95 18 135/72 98 05/04/19 15:17 97.4 F L 05/04/19 14:25 85 20 94 L 05/04/19 11:35 97.1 F L 05/04/19 10:58 72 22 H 96 Weight Admit Weight 147 lb 11.2 oz Weight 158 lb 9.6 oz Most Recent Monitor Data Heart Rate from ECG 108 NIBP 121/71 NIBP BP-Mean 87 Respiration from ECG 24 SpO2 96 I&O: 05/03/19 05/04/19 05/05/19 06:59 06:59 06:59 Intake Total 820 1150 650 Output Total 900 1650 450 Balance -80 -500 200 Result Diagrams: 05/04/19 03:30 05/04/19 03:30 Additional Labs: Accuchecks 05/04/19 05/04/19 05/04/19 20:36 16:24 10:43 POC Glucose 388 H 144 H 236 H 05/04/19 05:39 POC Glucose 201 H EKG Reviewed by me: Yes (Tele SR) Hospitalist ROS - Review of Systems Respiratory: denies: cough, dry, shortness of breath, hemoptysis, SOB with excertion, pleuritic pain, sputum, wheezing, other Cardiovascular: denies: chest pain, palpitations, orthopnea, paroxysmal noc. dyspnea, edema, light headedness, other - Medication Medications: Active Medications Generic Name Dose Route Start Last Admin Trade Name Freq PRN Reason Stop Dose Admin Acetaminophen 650 mg 04/29/19 15:19 05/04/19 16:15 Tylenol PO 650 mg Q4H PRN Administration Headache/Fever/Mild Pain (1-3) Hydrocodone Bitart/Acetaminophen 1 tab 04/29/19 15:19 05/03/19 20:31 [place] 7.5/325 PO 1 tab Q4H PRN Administration Severe Pain (7-10) Albuterol/Ipratropium 3 ml 05/01/19 11:00 05/04/19 19:39 Duoneb EZPAP 3 ml [id number] SAMMY Administration Amlodipine Besylate 5 mg 05/01/19 21:00 05/01/19 21:21 Norvasc PO Not Given BID SAMMY Aspirin 81 mg 04/30/19 09:00 05/04/19 10:05 Ecotrin PO 81 mg DAILY SAMMY Administration Atorvastatin Calcium 40 mg 04/29/19 21:00 05/04/19 20:50 Lipitor PO 40 mg HS SAMMY Administration Benzonatate 100 mg 04/29/19 15:24 04/30/19 07:42 Tessalon PO 100 mg Q4H PRN Administration Cough Bisacodyl 10 mg 04/29/19 15:19 04/30/19 10:50 Dulcolax PO 10 mg DAILYPRN PRN Administration Constipation Calcium Carbonate 1,000 mg 04/29/19 15:19 05/02/19 23:30 Tums PO 1,000 mg Q4H PRN Administration Heartburn or Indigestion Cefdinir 300 mg 05/03/19 21:00 05/04/19 20:50 Omnicef PO 300 mg BID SAMMY Administration Clonidine 0.1 mg 05/04/19 21:00 05/04/19 21:12 Catapres PO 0.1 mg BID SAMMY Administration Clopidogrel Bisulfate 75 mg 04/30/19 09:00 05/04/19 10:07 Plavix PO 75 mg DAILY SAMMY Administration Doxycycline Hyclate 100 mg 05/03/19 21:00 05/04/19 20:50 Vibramycin PO 100 mg BID SAMMY Administration Enoxaparin Sodium 70 mg 05/01/19 21:00 05/04/19 20:49 Lovenox SC 70 mg 899,2099 SAMMY Administration Famotidine 20 mg 04/29/19 21:00 05/04/19 20:51 Pepcid PO 20 mg BID SAMMY Administration Guaifenesin 600 mg 05/01/19 21:00 05/04/19 20:50 Mucinex PO 600 mg Q12HR SAMMY Administration Insulin Glargine 20 units/ 0.2 mls @ 0 mls/hr 04/30/19 09:00 05/04/19 10:40 Miscellaneous Medication SC 0.2 mls QAM SAMMY Administration Insulin Glargine 10 units/ 0.1 mls @ 0 mls/hr 05/02/19 21:00 05/04/19 20:49 Miscellaneous Medication SC 0.1 mls HS SAMMY Administration Insulin Human Lispro 0 units 04/29/19 15:27 05/04/19 20:55 Humalog SC 5 unit .BEDTIME SLIDING SC PRN Administration Bedtime Correctional Scale Insulin Human Lispro 0 units 05/02/19 06:03 05/04/19 10:40 Humalog SC 4 unit .MODERATE SLIDING SC PRN Administration Moderate Correctional Scale Isosorbide Mononitrate 60 mg 04/30/19 09:00 05/04/19 10:08 Imdur PO 60 mg DAILY SAMMY Administration Melatonin 3 mg 04/29/19 15:24 05/03/19 20:25 Melatonin PO 3 mg HS PRN Administration Insomnia Mometasone Furoate/Formoterol Fumar 1 puff 04/29/19 18:30 05/04/19 19:38 Dulera 100 Mcg/5 Mcg Inhaler INH 1 puff BID-RT SAMMY Administration Nitroglycerin 0.4 mg 04/29/19 15:18 05/02/19 02:20 Nitrostat SL 0.4 mg Q5MIN PRN Administration Chest Pain Nitroglycerin 1 inch 05/01/19 12:00 05/04/19 18:26 Nitro-Bid 2% Ointment TOP 1 inch Q6HR SAMMY Administration Ondansetron HCl 4 mg 04/29/19 15:19 04/30/19 17:48 Zofran IVP 4 mg Q6H PRN Administration Nausea/Vomiting Polyethylene Glycol 17 gm 05/02/19 09:00 05/04/19 10:09 Miralax PO Not Given DAILY SAMMY Prednisone 20 mg 05/04/19 08:00 05/04/19 16:16 Prednisone PO 20 mg BID-WM SAMMY Administration Ranolazine 1,000 mg 04/29/19 21:00 05/04/19 20:50 Ranexa PO 1,000 mg BID SAMMY Administration Sodium Chloride 10 ml 05/01/19 21:00 05/04/19 20:51 Flush - Normal Saline IVF 10 ml Q12HR SAMMY Administration Valsartan 80 mg 05/01/19 21:00 05/04/19 20:50 Diovan PO 80 mg BID SAMMY Administration - Exam General Appearance: NAD Heart: RRR, no gallops Respiratory: no rales, no ronchi, wheezes Gastrointestinal: non-tender, non-distended, normal bowel sounds Extremities: no cyanosis Neurological: no new deficit Hosp A/P - Plan DVT proph w/lovenox Acute respiratory failure with hypoxemia Unstable angina COPD exacerbation HTN CAD Polysubstance abuse Other issues per previous notes PLAN: Cont PO Atbx/Steroids Cont ASA/Plavix Cont Nebs Q4h DC Lovenox Cont Lantus 20 units QAM and 10 units HS with moderate sliding scale Cont current dose of Clonidine/Valsartan/Imdur Resume Amlodipine if needed No betablockers due to Cocaine abuse AM labs Transfer to tele
[2019-05-05] MEDS: Nitroglycerin 2% Ointment 1 INCH/1 GM Packet TOP SCH ×5 (00:33→23:18)
[2019-05-05 04:39] LABS: #Basophils 0.1 thou/uL (0.0-0.2); #Lymphocytes 3.5 thou/uL (1.20-3.40); #Monocytes 1.1 thou/uL (0.11-0.59); #Neutrophils 8.8 thou/uL (1.40-6.50); %Basophils 0.5 % (0.0-1.0); %Eosinophils 0.3 % (0.0-10.0); %Lymphocytes 25.8 % (21.0-51.0); %Neutrophils 65.5 % (42.0-75.0); Hemoglobin 12.4 g/dL (12.0-16.0); Mean Corpuscular Hemoglobin 26.9 pg (27.0-31.0); Mean Platelet Volume 10.5 fL (7.4-10.4); Platelet Count 208 thou/uL (130-400); RBC Distribution Width 13.6 % (11.5-14.5); Red Blood Cell (RBC) Count 4.61 mill/uL (4.20-5.40); White Blood Cell (WBC) Count 13.4 thou/uL (4.8-10.8)
[2019-05-05] MEDS: Nitroglycerin 0.4 MG TAB (25 Tab Bottle) SL PRN ×5 (04:54→07:47)
[2019-05-05 05:16] LABS: Chloride 102 mmol/L (98-107); Potassium 3.9 mmol/L (3.5-5.1); Sodium 137 mmol/L (136-145)
[2019-05-05 05:17] LABS: Calcium 9.1 mg/dL (7.8-10.44)
[2019-05-05 05:19] LABS: Anion Gap 13 mmol/L (10-20); Carbon Dioxide 26 mmol/L (23-31)
[2019-05-05 05:20] LABS: Glucose 242 mg/dL (80-115)
[2019-05-05 05:21] LABS: BUN (Urea Nitrogen) 23 mg/dL (9.8-20.1); Calc. Creatinine Clearance 79 mL/min (70-130); Estimated GFR-MDRD 87
[2019-05-05] MEDS: Mometasone/Formoterol 120 PUFF INHALER INH SCH ×2 (06:43→18:47)
[2019-05-05] MEDS ORDERED: Metoprolol Tartrate 5 MG/5 ML VIAL IVP SCH (08:15)
--- NOTE | 2019-05-05 08:30 | PRG ---
DATE OF SERVICE: 05/05/2019 SUBJECTIVE: She is feeling better. She can ambulate. She says she is less short of breath. OBJECTIVE: VITAL SIGNS: Temperature is 98.0, pulse 80, respirations 14, O2 saturation is 99% on 2 L, and blood pressure 131/66. HEENT: Unremarkable. NECK: No adenopathy or JVD. LUNGS: Rhonchi on the left side. CARDIAC: S1 and S2. Regular. ABDOMEN: Soft. EXTREMITIES: No edema. LABORATORY DATA: White blood cell count 13.4 ,hematocrit 38.8, and platelet count 208. Sodium 137, potassium 3.9, chloride 102, CO2 of 26, BUN 23, creatinine 0.8, glucose 242. ASSESSMENT: 1. Chronic obstructive pulmonary disease exacerbation. 2. Chronic hypoxemic and hypercapnic respiratory failure. 3. Systolic heart failure with mitral regurgitation. PLAN: Probably at the point where she can be discharged, she has been converted over to oral antibiotics and oral steroids. Increase activity as tolerated. No further Pulmonary recommendations. We will sign off. Job ID: [id number]
[2019-05-05] MEDS: Clopidogrel Bisulfate 75 MG TAB PO SCH (08:39)
[2019-05-05] MEDS: Doxycycline 100 MG CAP PO SCH ×2 (08:39→21:40)
[2019-05-05] MEDS: Famotidine 20 MG TAB PO SCH ×2 (08:39→21:41)
[2019-05-05] MEDS: Cefdinir 300 MG CAP PO SCH ×2 (08:40→21:41)
[2019-05-05] MEDS: Valsartan 80 MG TAB PO SCH ×2 (08:40→21:42)
[2019-05-05] MEDS: predniSONE 20 MG TAB PO SCH ×2 (08:40→17:51)
[2019-05-05] MEDS: Aspirin 81 mg Enteric Coated Tablet PO SCH (08:40)
[2019-05-05] MEDS: guaiFENesin ER 600 MG TAB PO SCH ×2 (08:40→21:41)
[2019-05-05] MEDS: Enoxaparin Sodium 80 MG/0.8 ML SYRINGE SC SCH ×2 (08:41→21:29)
[2019-05-05] MEDS: Polyethylene Glycol 3350 17 GM Packet PO SCH (08:42)
[2019-05-05] MEDS: cloNIDine 0.1 MG TAB PO SCH ×3 (09:04→21:41)
[2019-05-05] MEDS: Insulin Glargine 20 UNITS in Pre-Filled Syringe 1 EACH SC SCH (09:04)
[2019-05-05] MEDS ORDERED: Carvedilol 6.25 MG TAB PO SCH (09:30)
[2019-05-05 09:56] LABS: Troponin I 0.014 ng/mL (< 0.028)
--- NOTE | 2019-05-05 09:59 | PRG ---
DATE OF SERVICE: 05/05/2019 SUBJECTIVE: Ms. Kurtz is having no recurrent chest pain. This morning, she feels better now. She did require three nitroglycerin this morning and another nitroglycerin later. OBJECTIVE: VITAL SIGNS: Blood pressure was 190 to 200 systolic. The nurse told me prior to the last nitroglycerin, it is 140/76. Most recently, pulse 83. LUNGS: She has mild expiratory wheezing, but dramatically improved from last week. CARDIAC: Normal S1, normal S2. ABDOMEN: Soft, nontender. ASSESSMENT: 1. Inoperable coronary artery disease. She has had previous bypass. No other intervention feasible. 2. Chronic obstructive pulmonary disease. 3. Substance abuse. PLAN: 1. Resume low-dose Coreg. We will only give a low dose as she had bradycardia earlier during this admission. 2. She is on amlodipine. 3. She is on Lovenox and aspirin and Plavix. Long-term prognosis is guarded. If she has any bradycardia at all, we will probably reduce the carvedilol dose as she was significantly bradycardic on 04/30/2019. Job ID: [id number]
[2019-05-05 12:22] LABS: Troponin I 0.027 ng/mL (< 0.028)
[2019-05-05 15:44] LABS: Troponin I 0.016 ng/mL (< 0.028)
[2019-05-05] MEDS: Carvedilol 6.25 MG TAB PO SCH (17:50)
--- NOTE | 2019-05-05 17:59 | PDOC.HOSPP ---
- Subjective Encounter Date: 05/05/19 Encounter Time: 11:00 Subjective: Patient seen and examined for Resp failure/SOB. Intermittent CP with some diaphoresis. No fever or chills. No other complaints. No overnight events - Objective Vital Signs & Weight: Vital Signs (12 hours) Temp Pulse Resp BP BP Pulse Ox 05/05/19 15:39 98.1 F 94 22 H 134/62 93 L 05/05/19 14:57 80 14 05/05/19 12:11 97.8 F 70 20 126/68 94 L 05/05/19 10:51 121/65 05/05/19 10:47 73 14 05/05/19 08:00 97.8 F 83 20 141/76 H 96 05/05/19 06:45 80 14 Weight Admit Weight 147 lb 11.2 oz Weight 158 lb 9.6 oz Most Recent Monitor Data Heart Rate from ECG 108 NIBP 121/71 NIBP BP-Mean 87 Respiration from ECG 24 SpO2 96 I&O: 05/04/19 05/05/19 05/06/19 06:59 06:59 06:59 Intake Total 1150 650 Output Total 1650 450 Balance -500 200 Result Diagrams: 05/05/19 03:52 05/05/19 03:52 Additional Labs: Accuchecks 05/05/19 05/05/19 05/05/19 16:51 11:11 05:31 POC Glucose 358 H 159 H 188 H 05/04/19 20:36 POC Glucose 388 H EKG Reviewed by me: Yes (Tele SR) Hospitalist ROS - Review of Systems Respiratory: denies: cough, dry, shortness of breath, hemoptysis, SOB with excertion, pleuritic pain, sputum, wheezing, other Gastrointestinal: denies: nausea, vomiting, abdominal pain, diarrhea, constipation, melena, hematochezia, other - Medication Medications: Active Medications Generic Name Dose Route Start Last Admin Trade Name Freq PRN Reason Stop Dose Admin Acetaminophen 650 mg 04/29/19 15:19 05/04/19 16:15 Tylenol PO 650 mg Q4H PRN Administration Headache/Fever/Mild Pain (1-3) Hydrocodone Bitart/Acetaminophen 1 tab 04/29/19 15:19 05/05/19 05:40 [place] 5/325 PO 1 tab Q4H PRN Administration Moderate Pain (4-6) Hydrocodone Bitart/Acetaminophen 1 tab 04/29/19 15:19 05/03/19 20:31 [place] 7.5/325 PO 1 tab Q4H PRN Administration Severe Pain (7-10) Albuterol/Ipratropium 3 ml 04/29/19 15:24 05/05/19 05:31 Duoneb NEB 3 ml [id number] PRN Administration SOB &/or Wheezing Albuterol/Ipratropium 3 ml 05/01/19 11:00 05/05/19 14:57 Duoneb EZPAP 3 ml [id number] SAMMY Administration Amlodipine Besylate 5 mg 05/01/19 21:00 05/01/19 21:21 Norvasc PO Not Given BID [facility] Aspirin 81 mg 04/30/19 09:00 05/05/19 08:40 Ecotrin PO 81 mg DAILY SAMMY Administration Atorvastatin Calcium 40 mg 04/29/19 21:00 05/04/19 20:50 Lipitor PO 40 mg HS SAMMY Administration Benzonatate 100 mg 04/29/19 15:24 04/30/19 07:42 Tessalon PO 100 mg Q4H PRN Administration Cough Bisacodyl 10 mg 04/29/19 15:19 04/30/19 10:50 Dulcolax PO 10 mg DAILYPRN PRN Administration Constipation Calcium Carbonate 1,000 mg 04/29/19 15:19 05/02/19 23:30 Tums PO 1,000 mg Q4H PRN Administration Heartburn or Indigestion Carvedilol 6.25 mg 05/05/19 17:00 05/05/19 17:50 Coreg PO 6.25 mg BID-WM SAMMY Administration Cefdinir 300 mg 05/03/19 21:00 05/05/19 08:40 Omnicef PO 300 mg BID SAMMY Administration Clonidine 0.1 mg 05/05/19 09:00 05/05/19 15:41 Catapres PO 0.1 mg TID SAMMY Administration Clopidogrel Bisulfate 75 mg 04/30/19 09:00 05/05/19 08:39 Plavix PO 75 mg DAILY SAMMY Administration Doxycycline Hyclate 100 mg 05/03/19 21:00 05/05/19 08:39 Vibramycin PO 100 mg BID SAMMY Administration Enoxaparin Sodium 70 mg 05/05/19 09:00 05/05/19 08:41 Lovenox SC 70 mg 0900,2100 SAMMY Administration Famotidine 20 mg 04/29/19 21:00 05/05/19 08:39 Pepcid PO 20 mg BID SAMMY Administration Guaifenesin 600 mg 05/01/19 21:00 05/05/19 08:40 Mucinex PO 600 mg Q12HR SAMMY Administration Insulin Glargine 20 units/ 0.2 mls @ 0 mls/hr 04/30/19 09:00 05/05/19 09:04 Miscellaneous Medication SC 0.2 mls QAM SAMMY Administration Insulin Glargine 10 units/ 0.1 mls @ 0 mls/hr 05/02/19 21:00 05/04/19 20:49 Miscellaneous Medication SC 0.1 mls HS SAMMY Administration Insulin Human Lispro 0 units 04/29/19 15:27 05/04/19 20:55 Humalog SC 5 unit .BEDTIME SLIDING SC PRN Administration Bedtime Correctional Scale Insulin Human Lispro 0 units 05/02/19 06:03 05/04/19 10:40 Humalog SC 4 unit .MODERATE SLIDING SC PRN Administration Moderate Correctional Scale Isosorbide Mononitrate 60 mg 04/30/19 09:00 05/05/19 08:39 Imdur PO 60 mg DAILY SAMMY Administration Melatonin 3 mg 04/29/19 15:24 05/03/19 20:25 Melatonin PO 3 mg HS PRN Administration Insomnia Mometasone Furoate/Formoterol Fumar 1 puff 04/29/19 18:30 05/05/19 06:43 Dulera 100 Mcg/5 Mcg Inhaler INH 1 puff BID-RT SAMMY Administration Nitroglycerin 0.4 mg 04/29/19 15:18 05/05/19 07:47 Nitrostat SL 0.4 mg Q5MIN PRN Administration Chest Pain Nitroglycerin 1 inch 05/01/19 12:00 05/05/19 17:51 Nitro-Bid 2% Ointment TOP 1 inch Q6HR SAMMY Administration Ondansetron HCl 4 mg 04/29/19 15:19 04/30/19 17:48 Zofran IVP 4 mg Q6H PRN Administration Nausea/Vomiting Polyethylene Glycol 17 gm 05/02/19 09:00 05/05/19 08:42 Miralax PO Not Given DAILY SAMMY Prednisone 20 mg 05/04/19 08:00 05/05/19 17:51 Prednisone PO 20 mg BID-WM SAMMY Administration Ranolazine 1,000 mg 04/29/19 21:00 05/05/19 08:39 Ranexa PO 1,000 mg BID SAMMY Administration Sodium Chloride 10 ml 05/01/19 21:00 05/05/19 08:42 Flush - Normal Saline IVF 10 ml Q12HR SAMMY Administration Valsartan 80 mg 05/01/19 21:00 05/05/19 08:40 Diovan PO 80 mg BID SAMMY Administration - Exam General Appearance: NAD Heart: RRR, no gallops Respiratory: rhonchi, wheezes Gastrointestinal: soft, non-tender, normal bowel sounds Extremities: no cyanosis Psychiatric: normal affect, A&O x 3 Hosp A/P - Plan DVT proph w/lovenox Acute respiratory failure with hypoxemia Unstable angina COPD exacerbation HTN CAD Polysubstance abuse Other issues per previous notes PLAN: Cont ASA/Plavix Cont Nebs Q4h with PO Atbx/Steroids Lovenox restarted due to CP Cont Lantus 20 units QAM and 10 units HS with moderate sliding scale Cont current dose of Valsartan/Imdur Increase Clonidine to 0.1 mg TID Resume Amlodipine Coreg restarted today
[2019-05-05] MEDS: Insulin Glargine 10 UNITS in Pre-Filled Syringe 1 EACH SC SCH (21:24)
[2019-05-05] MEDS: HumaLOG 300 UNITS/3 ML VIAL SC PRN (21:25)
[2019-05-05] MEDS: Amlodipine 5 MG TAB PO SCH (21:40)
[2019-05-05] MEDS: Atorvastatin Calcium 40 MG TAB PO SCH (21:40)
[2019-05-06] MEDS: Nitroglycerin 2% Ointment 1 INCH/1 GM Packet TOP SCH ×4 (06:21→23:36)
[2019-05-06] MEDS: Mometasone/Formoterol 120 PUFF INHALER INH SCH ×2 (07:28→18:45)
[2019-05-06] MEDS: Amlodipine 5 MG TAB PO SCH (08:21)
[2019-05-06] MEDS: Valsartan 80 MG TAB PO SCH ×2 (08:21→20:50)
[2019-05-06] MEDS: Clopidogrel Bisulfate 75 MG TAB PO SCH (08:21)
[2019-05-06] MEDS: Cefdinir 300 MG CAP PO SCH ×2 (08:21→20:49)
[2019-05-06] MEDS: Carvedilol 6.25 MG TAB PO SCH ×2 (08:22→16:03)
[2019-05-06] MEDS: guaiFENesin ER 600 MG TAB PO SCH ×2 (08:22→20:49)
[2019-05-06] MEDS: predniSONE 20 MG TAB PO SCH ×2 (08:22→16:03)
[2019-05-06] MEDS: Doxycycline 100 MG CAP PO SCH ×2 (08:22→20:49)
[2019-05-06] MEDS: Aspirin 81 mg Enteric Coated Tablet PO SCH (08:22)
[2019-05-06] MEDS: Enoxaparin Sodium 80 MG/0.8 ML SYRINGE SC SCH ×2 (08:22→20:49)
[2019-05-06] MEDS: Famotidine 20 MG TAB PO SCH ×2 (08:22→20:49)
[2019-05-06] MEDS: cloNIDine 0.1 MG TAB PO SCH ×2 (08:22→15:12)
[2019-05-06] MEDS: Polyethylene Glycol 3350 17 GM Packet PO SCH (08:24)
[2019-05-06] MEDS: Insulin Glargine 20 UNITS in Pre-Filled Syringe 1 EACH SC SCH (08:51)
[2019-05-06] MEDS: HumaLOG 300 UNITS/3 ML VIAL SC PRN ×3 (11:10→20:42)
--- NOTE | 2019-05-06 11:48 | PRG ---
DATE OF SERVICE: 05/06/2019 SUBJECTIVE: Ms. Kurtz is doing better. No complaints. Did not have any chest pain today. OBJECTIVE: VITAL SIGNS: Her blood pressure most recently 129/66, pulse 74 and regular. LUNGS: Clear. CARDIAC: Normal S1, normal S2. ABDOMEN: Soft, nontender. EXTREMITIES: No edema. ASSESSMENT: 1. Coronary artery disease, severe, not a reoperative candidate. No other percutaneous intervention feasible due to distal disease. 2. Severe peripheral vascular disease. 3. Diabetes. 4. Substance abuse. 5. Hypertension. 6. Bradycardia earlier during this admission. PLAN: 1. She is on low-dose carvedilol. 2. We will probably reduce clonidine dose to try to avoid bradycardia. She had a significant bradycardia earlier during the hospitalization. 3. Change her Procardia XL from amlodipine and keep 1 or 2 more days here. Job ID: [id number]
--- NOTE | 2019-05-06 17:51 | PDOC.HOSPP ---
- Subjective Encounter Date: 05/06/19 Encounter Time: 14:00 Subjective: Patient seen and examined for Resp failure. SOB improving. No CP. No new complaints. No overnight events - Objective Vital Signs & Weight: Vital Signs (12 hours) Temp Pulse Pulse Pulse Pulse Resp BP 05/06/19 15:11 98.1 F 85 18 05/06/19 14:09 74 16 05/06/19 13:37 84 86 120/64 05/06/19 11:14 98.2 F 74 18 05/06/19 10:56 79 16 05/06/19 09:27 85 77 05/06/19 07:26 82 16 05/06/19 07:12 97.9 F 68 18 BP BP BP Pulse Ox Pulse Ox Pulse Ox Pulse Ox 05/06/19 15:11 132/70 96 05/06/19 14:09 97 05/06/19 13:37 128/60 91 L 95 95 05/06/19 11:14 129/66 95 05/06/19 10:56 96 05/06/19 09:27 147/69 H 129/67 05/06/19 07:26 96 05/06/19 07:12 141/77 H 95 Weight Admit Weight 147 lb 11.2 oz Weight 158 lb 9.6 oz Most Recent Monitor Data Heart Rate from ECG 108 NIBP 121/71 NIBP BP-Mean 87 Respiration from ECG 24 SpO2 96 I&O: 05/05/19 05/06/19 05/07/19 06:59 06:59 06:59 Intake Total 650 240 Output Total 450 500 Balance 200 -260 Result Diagrams: 05/05/19 03:52 05/05/19 03:52 Additional Labs: Accuchecks 05/06/19 05/06/19 05/06/19 16:35 10:36 05:36 POC Glucose 280 H 168 H 237 H 05/05/19 20:18 POC Glucose 292 H EKG Reviewed by me: Yes (Tele SR) Hospitalist ROS - Review of Systems Respiratory: denies: cough, dry, shortness of breath, hemoptysis, SOB with excertion, pleuritic pain, sputum, wheezing, other Cardiovascular: denies: chest pain, palpitations, orthopnea, paroxysmal noc. dyspnea, edema, light headedness, other - Medication Medications: Active Medications Generic Name Dose Route Start Last Admin Trade Name Freq PRN Reason Stop Dose Admin Acetaminophen 650 mg 04/29/19 15:19 05/04/19 16:15 Tylenol PO 650 mg Q4H PRN Administration Headache/Fever/Mild Pain (1-3) Hydrocodone Bitart/Acetaminophen 1 tab 04/29/19 15:19 05/05/19 05:40 [place] 5/325 PO 1 tab Q4H PRN Administration Moderate Pain (4-6) Hydrocodone Bitart/Acetaminophen 1 tab 04/29/19 15:19 05/03/19 20:31 [place] 7.5/325 PO 1 tab Q4H PRN Administration Severe Pain (7-10) Albuterol/Ipratropium 3 ml 04/29/19 15:24 05/05/19 05:31 Duoneb NEB 3 ml [id number] PRN Administration SOB &/or Wheezing Albuterol/Ipratropium 3 ml 05/01/19 11:00 05/06/19 14:09 Duoneb EZPAP 3 ml [id number] SAMMY Administration Aspirin 81 mg 04/30/19 09:00 05/06/19 08:22 Ecotrin PO 81 mg DAILY SAMMY Administration Atorvastatin Calcium 40 mg 04/29/19 21:00 05/05/19 21:40 Lipitor PO 40 mg HS SAMMY Administration Benzonatate 100 mg 04/29/19 15:24 04/30/19 07:42 Tessalon PO 100 mg Q4H PRN Administration Cough Bisacodyl 10 mg 04/29/19 15:19 04/30/19 10:50 Dulcolax PO 10 mg DAILYPRN PRN Administration Constipation Calcium Carbonate 1,000 mg 04/29/19 15:19 05/02/19 23:30 Tums PO 1,000 mg Q4H PRN Administration Heartburn or Indigestion Carvedilol 6.25 mg 05/05/19 17:00 05/06/19 16:03 Coreg PO 6.25 mg BID-WM SAMMY Administration Cefdinir 300 mg 05/03/19 21:00 05/06/19 08:21 Omnicef PO 300 mg BID SAMMY Administration Clopidogrel Bisulfate 75 mg 04/30/19 09:00 05/06/19 08:21 Plavix PO 75 mg DAILY SAMMY Administration Doxycycline Hyclate 100 mg 05/03/19 21:00 05/06/19 08:22 Vibramycin PO 100 mg BID SAMMY Administration Enoxaparin Sodium 70 mg 05/05/19 09:00 05/06/19 08:22 Lovenox SC 70 mg 0900,2100 SAMMY Administration Famotidine 20 mg 04/29/19 21:00 05/06/19 08:22 Pepcid PO 20 mg BID SAMMY Administration Guaifenesin 600 mg 05/01/19 21:00 05/06/19 08:22 Mucinex PO 600 mg Q12HR SAMMY Administration Insulin Glargine 20 units/ 0.2 mls @ 0 mls/hr 04/30/19 09:00 05/06/19 08:51 Miscellaneous Medication SC 0.2 mls QAM SAMMY Administration Insulin Glargine 10 units/ 0.1 mls @ 0 mls/hr 05/02/19 21:00 05/05/19 21:24 Miscellaneous Medication SC 0.1 mls HS SAMMY Administration Insulin Human Lispro 0 units 04/29/19 15:27 05/05/19 21:25 Humalog SC 3 unit .BEDTIME SLIDING SC PRN Administration Bedtime Correctional Scale Insulin Human Lispro 0 units 05/02/19 06:03 05/06/19 16:56 Humalog SC 6 unit .MODERATE SLIDING SC PRN Administration Moderate Correctional Scale Isosorbide Mononitrate 60 mg 04/30/19 09:00 05/06/19 08:22 Imdur PO 60 mg DAILY SAMMY Administration Melatonin 3 mg 04/29/19 15:24 05/03/19 20:25 Melatonin PO 3 mg HS PRN Administration Insomnia Mometasone Furoate/Formoterol Fumar 1 puff 04/29/19 18:30 05/06/19 07:28 Dulera 100 Mcg/5 Mcg Inhaler INH 1 puff BID-RT SAMMY Administration Nitroglycerin 0.4 mg 04/29/19 15:18 05/05/19 07:47 Nitrostat SL 0.4 mg Q5MIN PRN Administration Chest Pain Nitroglycerin 1 inch 05/01/19 12:00 05/06/19 16:56 Nitro-Bid 2% Ointment TOP 1 inch Q6HR SAMMY Administration Ondansetron HCl 4 mg 04/29/19 15:19 04/30/19 17:48 Zofran IVP 4 mg Q6H PRN Administration Nausea/Vomiting Polyethylene Glycol 17 gm 05/02/19 09:00 05/06/19 08:24 Miralax PO Not Given DAILY SAMMY Prednisone 20 mg 05/04/19 08:00 05/06/19 16:03 Prednisone PO 20 mg BID-WM SAMMY Administration Ranolazine 1,000 mg 04/29/19 21:00 05/06/19 08:22 Ranexa PO 1,000 mg BID SAMMY Administration Sodium Chloride 10 ml 05/01/19 21:00 05/06/19 08:23 Flush - Normal Saline IVF 10 ml Q12HR SAMMY Administration Valsartan 80 mg 05/01/19 21:00 05/06/19 08:21 Diovan PO 80 mg BID SAMMY Administration - Exam General Appearance: NAD Heart: RRR, no gallops Respiratory: no rales, rhonchi, wheezes Gastrointestinal: soft, non-tender, normal bowel sounds Extremities: no cyanosis Hosp A/P - Plan DVT proph w/lovenox Acute respiratory failure with hypoxemia Unstable angina COPD exacerbation HTN CAD Polysubstance abuse Other issues per previous notes PLAN: Cont ASA/Plavix with Lovenox per Cardiology Reduce Clonidine to 0.1 mg BID Cont Nebs Q4h withAtbx/Steroids Cont Lantus 20 units QAM & 10 units HS with moderate sliding scale Cont Valsartan/Imdur/Coreg Amlodipine changed to Procardia XL AM labs
[2019-05-06] MEDS: Insulin Glargine 10 UNITS in Pre-Filled Syringe 1 EACH SC SCH (20:42)
[2019-05-06] MEDS: Atorvastatin Calcium 40 MG TAB PO SCH (20:48)
[2019-05-06] MEDS: diphenhydrAMINE 25 MG CAP PO PRN (20:59)
[2019-05-06] MEDS ORDERED: cloNIDine 0.1 MG TAB PO SCH (21:00)
[2019-05-07 04:50] LABS: Anion Gap 11 mmol/L (10-20); BUN (Urea Nitrogen) 22 mg/dL (9.8-20.1); Calc. Creatinine Clearance 91 mL/min (70-130); Calcium 8.7 mg/dL (7.8-10.44); Carbon Dioxide 24 mmol/L (23-31); Chloride 107 mmol/L (98-107); Estimated GFR-MDRD Greater than 90; Glucose 178 mg/dL (80-115); Potassium 4.4 mmol/L (3.5-5.1); Sodium 138 mmol/L (136-145)
[2019-05-07] MEDS: Nitroglycerin 2% Ointment 1 INCH/1 GM Packet TOP SCH ×3 (05:58→18:02)
[2019-05-07] MEDS: Mometasone/Formoterol 120 PUFF INHALER INH SCH ×2 (06:58→18:22)
[2019-05-07] MEDS: Cefdinir 300 MG CAP PO SCH ×2 (08:57→20:47)
[2019-05-07] MEDS: predniSONE 20 MG TAB PO SCH ×2 (08:57→18:01)
[2019-05-07] MEDS: Aspirin 81 mg Enteric Coated Tablet PO SCH (08:57)
[2019-05-07] MEDS: Enoxaparin Sodium 80 MG/0.8 ML SYRINGE SC SCH (08:57)
[2019-05-07] MEDS: Carvedilol 6.25 MG TAB PO SCH ×2 (08:57→18:01)
[2019-05-07] MEDS: Clopidogrel Bisulfate 75 MG TAB PO SCH (08:57)
[2019-05-07] MEDS: Doxycycline 100 MG CAP PO SCH ×2 (08:57→20:47)
[2019-05-07] MEDS: guaiFENesin ER 600 MG TAB PO SCH ×2 (08:58→20:47)
[2019-05-07] MEDS: Famotidine 20 MG TAB PO SCH ×2 (08:58→20:47)
[2019-05-07] MEDS: NIFEdipine XL 60 MG TAB PO SCH (08:58)
[2019-05-07] MEDS: Valsartan 80 MG TAB PO SCH ×2 (08:59→20:47)
[2019-05-07] MEDS: Polyethylene Glycol 3350 17 GM Packet PO SCH (08:59)
[2019-05-07] MEDS: Insulin Glargine 20 UNITS in Pre-Filled Syringe 1 EACH SC SCH (09:00)
--- NOTE | 2019-05-07 10:09 | PRG ---
DATE OF SERVICE: 05/07/2019 SUBJECTIVE: Ms. Kurtz is feeling better. She is not having any recurrent chest pain. She is wheezing, however, a lot. OBJECTIVE: VITAL SIGNS: Her blood pressure has been variable. Last night, it 99/59, most recently 140/80. Pulse 76. LUNGS: She has a diffuse expiratory wheezing. CARDIAC: Normal S1 and normal S2. ABDOMEN: Soft and nontender. EXTREMITIES: There is no edema. ASSESSMENT: 1. Reactive airway disease, intermittent severe wheezing. 2. Hypertension, improved control. 3. Mild bradycardia, early during this admission. PLAN: 1. She is on aspirin and Plavix. 2. We will reduce enoxaparin dose. 3. She is on Procardia XL. 4. Valsartan. 5. The patient seems to be slowly improving. We will reduce enoxaparin dose. Job ID: [id number]
[2019-05-07] MEDS: HumaLOG 300 UNITS/3 ML VIAL SC PRN ×3 (12:15→20:50)
[2019-05-07] MEDS: Atorvastatin Calcium 40 MG TAB PO SCH (20:46)
[2019-05-07] MEDS: diphenhydrAMINE 25 MG CAP PO PRN (20:47)
[2019-05-07] MEDS: Insulin Glargine 10 UNITS in Pre-Filled Syringe 1 EACH SC SCH (20:48)
[2019-05-07] MEDS ORDERED: Enoxaparin Sodium 80 MG/0.8 ML SYRINGE SC SCH (21:00)
[2019-05-07] MEDS ORDERED: Enoxaparin Sodium 40 MG/0.4 ML SYRINGE SC SCH (21:00)
--- NOTE | 2019-05-07 21:02 | PDOC.HOSPP ---
- Subjective Encounter Date: 05/07/19 Encounter Time: 09:30 Subjective: Patient seen and examined for Resp failure. SOB improving. No new CP. No fever or chills. No new complaints. No overnight events - Objective Vital Signs & Weight: Vital Signs (12 hours) Temp Pulse Resp BP Pulse Ox 05/07/19 18:22 85 16 96 05/07/19 15:08 98.0 F 92 20 127/57 L 96 05/07/19 14:27 76 16 98 05/07/19 12:09 98.4 F 83 20 149/75 H 94 L 05/07/19 10:45 79 16 98 Weight Admit Weight 147 lb 11.2 oz Weight 158 lb 9.6 oz Most Recent Monitor Data Heart Rate from ECG 108 NIBP 121/71 NIBP BP-Mean 87 Respiration from ECG 24 SpO2 96 I&O: 05/06/19 05/07/19 05/08/19 06:59 06:59 06:59 Intake Total 266 922 8910 Output Total 500 1000 1350 Balance -260 -640 90 Result Diagrams: 05/08/19 04:01 05/08/19 04:01 Additional Labs: Accuchecks 05/07/19 05:45 POC Glucose 152 H EKG Reviewed by me: Yes (Tele SR) Hospitalist ROS - Review of Systems Cardiovascular: denies: chest pain, palpitations, orthopnea, paroxysmal noc. dyspnea, edema, light headedness, other Gastrointestinal: denies: nausea, vomiting, abdominal pain, diarrhea, constipation, melena, hematochezia, other - Medication Medications: Active Medications Generic Name Dose Route Start Last Admin Trade Name Freq PRN Reason Stop Dose Admin Acetaminophen 650 mg 04/29/19 15:19 05/04/19 16:15 Tylenol PO 650 mg Q4H PRN Administration Headache/Fever/Mild Pain (1-3) Hydrocodone Bitart/Acetaminophen 1 tab 04/29/19 15:05/05/19 05:40 [place] 5/325 PO 1 tab Q4H PRN Administration Moderate Pain (4-6) Hydrocodone Bitart/Acetaminophen 1 tab 04/29/19 15:19 05/03/19 20:31 [place] 7.5/325 PO 1 tab Q4H PRN Administration Severe Pain (7-10) Albuterol/Ipratropium 3 ml 04/29/19 15:24 05/05/19 05:31 Duoneb NEB 3 ml [id number] PRN Administration SOB &/or Wheezing Albuterol/Ipratropium 3 ml 05/01/19 11:00 05/07/19 18:22 Duoneb EZPAP 3 ml [id number] SAMMY Administration Aspirin 81 mg 04/30/19 09:00 05/07/19 08:57 Ecotrin PO 81 mg DAILY SAMMY Administration Atorvastatin Calcium 40 mg 04/29/19 21:00 05/07/19 20:46 Lipitor PO 40 mg HS SAMMY Administration Benzonatate 100 mg 04/29/19 15:24 04/30/19 07:42 Tessalon PO 100 mg Q4H PRN Administration Cough Bisacodyl 10 mg 04/29/19 15:19 04/30/19 10:50 Dulcolax PO 10 mg DAILYPRN PRN Administration Constipation Calcium Carbonate 1,000 mg 04/29/19 15:19 05/02/19 23:30 Tums PO 1,000 mg Q4H PRN Administration Heartburn or Indigestion Carvedilol 6.25 mg 05/05/19 17:00 05/07/19 18:01 Coreg PO 6.25 mg BID-WM SAMMY Administration Cefdinir 300 mg 05/03/19 21:00 05/07/19 20:47 Omnicef PO 300 mg BID SAMMY Administration Clopidogrel Bisulfate 75 mg 04/30/19 09:00 05/07/19 08:57 Plavix PO 75 mg DAILY SAMMY Administration Diphenhydramine HCl 25 mg 04/29/19 15:24 05/07/19 20:47 Benadryl PO 25 mg Q6H PRN Administration Itching & Insomnia Doxycycline Hyclate 100 mg 05/03/19 21:00 05/07/19 20:47 Vibramycin PO 100 mg BID SAMMY Administration Enoxaparin Sodium 40 mg 05/07/19 21:00 05/07/19 20:48 Lovenox SC 40 mg BID SAMMY Administration Famotidine 20 mg 04/29/19 21:00 05/07/19 20:47 Pepcid PO 20 mg BID SAMMY Administration Guaifenesin 600 mg 05/01/19 21:00 05/07/19 20:47 Mucinex PO 600 mg Q12HR SAMMY Administration Insulin Glargine 20 units/ 0.2 mls @ 0 mls/hr 04/30/19 09:00 05/07/19 09:00 Miscellaneous Medication SC 0.2 mls QAM SAMMY Administration Insulin Glargine 10 units/ 0.1 mls @ 0 mls/hr 05/02/19 21:00 05/07/19 20:48 Miscellaneous Medication SC 0.1 mls HS SAMMY Administration Insulin Human Lispro 0 units 04/29/19 15:27 05/07/19 20:50 Humalog SC 2 unit .BEDTIME SLIDING SC PRN Administration Bedtime Correctional Scale Insulin Human Lispro 0 units 05/02/19 06:03 05/07/19 18:02 Humalog SC 8 unit .MODERATE SLIDING SC PRN Administration Moderate Correctional Scale Isosorbide Mononitrate 60 mg 04/30/19 09:00 05/07/19 08:58 Imdur PO 60 mg DAILY SAMMY Administration Melatonin 3 mg 04/29/19 15:24 05/03/19 20:25 Melatonin PO 3 mg HS PRN Administration Insomnia Mometasone Furoate/Formoterol Fumar 1 puff 04/29/19 18:30 05/07/19 18:22 Dulera 100 Mcg/5 Mcg Inhaler INH 1 puff BID-RT SAMMY Administration Nifedipine 60 mg 05/07/19 09:00 05/07/19 08:58 Procardia Xl PO 60 mg DAILY SAMMY Administration Nitroglycerin 0.4 mg 04/29/19 15:18 05/05/19 07:47 Nitrostat SL 0.4 mg Q5MIN PRN Administration Chest Pain Nitroglycerin 1 inch 05/01/19 12:00 05/07/19 18:02 Nitro-Bid 2% Ointment TOP 1 inch Q6HR SAMMY Administration Ondansetron HCl 4 mg 04/29/19 15:19 04/30/19 17:48 Zofran IVP 4 mg Q6H PRN Administration Nausea/Vomiting Polyethylene Glycol 17 gm 05/02/19 09:00 05/07/19 08:59 Miralax PO Not Given DAILY SAMMY Prednisone 20 mg 05/04/19 08:00 05/07/19 18:01 Prednisone PO 20 mg BID-WM SAMMY Administration Ranolazine 1,000 mg 04/29/19 21:00 05/07/19 20:47 Ranexa PO 1,000 mg BID SAMYM Administration Sodium Chloride 10 ml 05/01/19 21:00 05/07/19 20:48 Flush - Normal Saline IVF 10 ml Q12HR SAMMY Administration Valsartan 80 mg 05/01/19 21:00 05/07/19 20:47 Diovan PO 80 mg BID SAMMY Administration - Exam General Appearance: NAD Heart: RRR, no gallops Respiratory: no rales, no ronchi, wheezes Gastrointestinal: non-tender, non-distended, normal bowel sounds Extremities: no cyanosis Hosp A/P - Plan DVT proph w/lovenox, DVT proph w/SCDs Acute respiratory failure with hypoxemia Unstable angina COPD exacerbation HTN CAD Polysubstance abuse Other issues per previous notes PLAN: DC Clonidine Cont Procardia XL Cont ASA/Plavix Lovenox dose reduced Cont Nebs Q4h withAtbx/Steroids Cont current dose of Lantus with moderate sliding scale Cont Valsartan/Imdur/Coreg AM labs Will need nebulizer for home use due to h/o COPD
[2019-05-08] MEDS: Nitroglycerin 2% Ointment 1 INCH/1 GM Packet TOP SCH ×2 (00:34→05:35)
[2019-05-08 04:35] LABS: Hemoglobin 12.7 g/dL (12.0-16.0); Platelet Count 291 thou/uL (130-400)
[2019-05-08 04:55] LABS: Anion Gap 12 mmol/L (10-20); BUN (Urea Nitrogen) 22 mg/dL (9.8-20.1); Calc. Creatinine Clearance 85 mL/min (70-130); Calcium 9.2 mg/dL (7.8-10.44); Carbon Dioxide 24 mmol/L (23-31); Chloride 106 mmol/L (98-107); Estimated GFR-MDRD Greater than 90; Glucose 327 mg/dL (80-115); Potassium 4.8 mmol/L (3.5-5.1); Sodium 137 mmol/L (136-145)
[2019-05-08] MEDS: Mometasone/Formoterol 120 PUFF INHALER INH SCH (08:06)
--- NOTE | 2019-05-08 08:32 | PRG ---
DATE OF SERVICE: 05/08/2019 SUBJECTIVE: Ms. Kurtz is feeling much better. She wants to go home. OBJECTIVE: VITAL SIGNS: Her blood pressures earlier 129/72, now 149/70, pulse 80. LUNGS: There is mild expiratory wheezing, but much better than yesterday. CARDIAC: Normal S1, normal S2. ABDOMEN: Soft, nontender. EXTREMITIES: There is no edema. ASSESSMENT: 1. Coronary artery disease, inoperable with distal atherosclerosis. 2. Hypertension, improved. 3. Severe chronic obstructive pulmonary disease. 4. Substance abuse. 5. Tobacco abuse. PLAN: 1. She is on aspirin. 2. She is on clopidogrel. 3. Stop nitro paste. 4. She is on carvedilol 6.25 twice a day. 5. Doxycycline. 6. Isosorbide. 7. Procardia XL 60 mg a day. 8. Ranexa. 9. Valsartan. Okay to me to be released home when okay with the hospitalist physician. Job ID: [id number]
[2019-05-08] MEDS: Cefdinir 300 MG CAP PO SCH (08:57)
[2019-05-08] MEDS: Carvedilol 6.25 MG TAB PO SCH (08:57)
[2019-05-08] MEDS: Clopidogrel Bisulfate 75 MG TAB PO SCH (08:58)
[2019-05-08] MEDS: Doxycycline 100 MG CAP PO SCH (08:58)
[2019-05-08] MEDS: guaiFENesin ER 600 MG TAB PO SCH (08:58)
[2019-05-08] MEDS: Aspirin 81 mg Enteric Coated Tablet PO SCH (08:58)
[2019-05-08] MEDS: NIFEdipine XL 60 MG TAB PO SCH (08:59)
[2019-05-08] MEDS: Famotidine 20 MG TAB PO SCH (08:59)
[2019-05-08] MEDS ORDERED: Enoxaparin Sodium 40 MG/0.4 ML SYRINGE SC SCH (09:00)
[2019-05-08] MEDS: predniSONE 20 MG TAB PO SCH (09:00)
[2019-05-08] MEDS: Valsartan 80 MG TAB PO SCH (09:01)
[2019-05-08] MEDS: Insulin Glargine 20 UNITS in Pre-Filled Syringe 1 EACH SC SCH (09:01)
[2019-05-08] MEDS: Polyethylene Glycol 3350 17 GM Packet PO SCH (09:02)
[2019-05-08 11:42] VITALS: BP 127/67; TEMP 97.8
--- NOTE | 2019-05-08 15:24 | DIS ---
DATE OF ADMISSION: 04/29/2019 DATE OF DISCHARGE: 05/08/2019 DISCHARGE DISPOSITION: Home. FOLLOWUP: 1. Follow up with primary care physician, Dr. Dudley in 1 week. 2. Follow up with Cardiology, Dr. Smith and Pulmonary, Dr. Witt in 2 to 3 weeks. ALLERGIES: NO KNOWN DRUG ALLERGIES. THE PATIENT WAS SEEN AND EXAMINED ON THE DAY OF DISCHARGE. DENIES ANY NEW COMPLAINTS. NO CHEST PAIN, SHORTNESS OF BREATH, OR PALPITATIONS. DISCHARGE MEDICATIONS: 1. Albuterol inhaler as needed. 2. Sublingual nitroglycerin as needed. 3. Aspirin 81 mg daily. 4. Lipitor 40 mg q.h.s. 5. Carvedilol 6.25 mg b.i.d. 6. Plavix 75 mg daily. 7. Lantus 15 units daily. 8. DuoNeb as needed. 9. Isosorbide mononitrate 60 mg daily. 10. Metformin 500 mg twice daily. 11. Dulera 1 puff b.i.d. 12. Procardia XL 60 mg daily. 13. Prednisone taper. 14. Ranexa 1000 mg b.i.d. 15. Valsartan 80 mg b.i.d. INPATIENT CONSULTANTS: 1. Cardiology, Dr. Smith. 2. Pulmonary, Dr. Witt. BRIEF HOSPITAL COURSE: The patient is a 64-year-old female with coronary artery disease, COPD, and drug abuse, presented to the emergency room with shortness of breath. A workup was consistent with acute hypoxic respiratory failure secondary to COPD exacerbation along with unstable angina. The patient had several episodes of chest pain. Urine drug screen was positive for cocaine and PCP. She was started on 1 mg/kg of Lovenox. Aspirin and Plavix were continued. Beta blockers were initially held due to bradycardia that has improved. Clonidine has been discontinued. Her medications have been optimized by Cardiology. For COPD exacerbation, the patient was placed on IV steroids along with empiric antibiotics. Steroids have been changed to p.o. The patient was extensively counseled on lifestyle modification including drug cessation. SIGNIFICANT LABORATORY DATA: Maximum troponin 0.035. ABGs showed pH of 7.34 with pCO2 of 34.7, pO2 of 106. Echocardiogram showed left ventricular ejection fraction of 45% to 50% with moderate mitral regurgitation, mild tricuspid regurgitation. FINAL DIAGNOSES: 1. Acute hypoxic respiratory failure. 2. Unstable angina. 3. Chronic obstructive pulmonary disease exacerbation. 4. Hypertension. 5. Coronary artery disease. 6. Polysubstance abuse. 7. Diabetes mellitus type 2. 8. Moderate mitral regurgitation. 9. Mild tricuspid regurgitation. 10. Abnormal TSH. TSH was 0.179 with a free T4 of 1.02. The patient understands the above plan of care. Job ID: [id number]
--- NOTE | 2019-05-12 18:08 | PQF ---
[employer] Handicapper Crystal Reports Winform Viewer ANANTH CHASE MALIK MD [id number] [facility]- B08 [id number] CLINICAL DOCUMENTATION CLARIFICATION FORM: POST DISCHARGE Addendum to original discharge summary date: ____ Late entry note date: __ DATE: 05/11/19 ATTN: Filippo Zelaya Please exercise your independent, professional judgment in responding to the clarification form. Clinical indicators are provided on the bottom of this form for your review Can you please further clarify the condition of the patient based on the clinical indicators below? Please check appropriate box(es): [ ] Sepsis due to: (Pna, UTI, gangrenous gall bladder, etc.) [ ] Localized infection without sepsis [ ] Other diagnosis [ x ] Unable to determine In addition, please specify: Present on Admission (POA): [ ] Yes [ ] No [ ] Unable to determine For continuity of documentation, please document condition throughout progress notes and discharge summary. Thank You. CLINICAL INDICATORS - SIGNS / SYMPTOMS / LABS ED Provider pg.6- Patient presents for evaluation of sepsis ED Provider pg.8- Diagnosis: acute respiratory distress, Additional: PNA and COPD, Sepsis H and P pg.1- ,Presents with SOB PN 2/6- likely some degree of bronchopneumonia Laboratory- WBC 6.2,7.3,7.9,10.3, 13.4H RISK FACTORS COPD exacerbation- H and P pg.2 Acute respiratory failure- H and P pg.2 CAD- H and P pg.2 HTN- H and P pg.1 CHF- H and P pg.1 Bronchitis- PM Dr. Massey TREATMENTS: Pulmonary Consult- Dr. Witt 2/ Chest X ray 2/ IV Antibiotics- MAR IV fluifd- MAR O2 Supplementation BiPAP- ED Provider (This form is maintained as a part of the permanent medical record) 2014 [employer]. All Rights Reserved [email or web address]
--- NOTE | 2019-05-13 19:27 | PQF ---
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 Clinical indicators are provided on the bottom of this form for your review Can medina please further clarify if Bronchopneumonia is ruled in or ruled out? Bronchopneumonia [ ] Ruled in diagnosis [ ] Continue to treat [ ] Resolved [ x ] Ruled out diagnosis [ ] Cannot rule out diagnosis [ ] Other diagnosis [ ] Unable to determine In addition, please specify: Present on Admission (POA): [ ] Yes [ ] No [ ] Unable to determine For continuity of documentation, please document condition throughout progress notes and discharge summary. Thank You. CLINICAL INDICATORS - SIGNS / SYMPTOMS / LABS ED Provider pg.8- Diagnosis: acute respiratory distress, Additional: PNA and COPD, Sepsis H and P pg.1- Presents with SOB PN 2/6- likely some degree of bronchopneumonia Laboratory- WBC 6.2,7.3,7.9,10.3, 13.4H PN p1 2/5 Dr. Pulliam Vital signs: BP 121/64; MA 96; RR 22; Temp 98.4 Chest Xray 2- chronic lung parenchymal changes DS pg.2- "Acute respiratory failure 2/2 acute COPD exacerbation" RISK FACTORS COPD exacerbation- H and P pg.2 Acute respiratory failure- H and P pg.2 CAD- H and P pg.2 HTN- H and P pg.1 CHF- H and P pg.1 Bronchitis- PM Dr. Massey TREATMENTS Pulmonary Consult- Dr. Witt 04/30 Chest X ray 2/4 IV Antibiotics- MAR IV fluids- MAR O2 Supplementation BiPAP- ED Provider (This form is maintained as a part of the permanent medical record) 2014 [email or web address], [employer]. All Rights Reserved [email or web address]
== END 2019-05-08 15:06 | disposition home health service (06) | DRG 189 ==
LOC: ERS 14:27 → ERHOLD 15:33 → IMCU/EMU 21:41 → 2NO 05-04 21:29
PROVIDERS: ADMIT Internal Medicine; ATTEND Internal Medicine
PROC: 5A09457 Assistance with Respiratory Ventilation, 24-96 Consecutive Hours, Continuous Positive Airway Pressure (ICD-10-PCS; principal; 2019-04-29)
DX: J96.01 Acute respiratory failure with hypoxia (principal); J44.1 Chronic obstructive pulmonary disease with (acute) exacerbation; I50.22 Chronic systolic (congestive) heart failure; I25.110 Atherosclerotic heart disease of native coronary artery with unstable angina pectoris; I42.9 Cardiomyopathy, unspecified; E78.5 Hyperlipidemia, unspecified; E78.00 Pure hypercholesterolemia, unspecified; K21.9 Gastro-esophageal reflux disease without esophagitis; E55.9 Vitamin D deficiency, unspecified; M19.90 Unspecified osteoarthritis, unspecified site; F17.210 Nicotine dependence, cigarettes, uncomplicated; I11.0 Hypertensive heart disease with heart failure; F14.10 Cocaine abuse, uncomplicated; E11.51 Type 2 diabetes mellitus with diabetic peripheral angiopathy without gangrene; T38.0X5A Adverse effect of glucocorticoids and synthetic analogues, initial encounter; E03.9 Hypothyroidism, unspecified; I08.1 Rheumatic disorders of both mitral and tricuspid valves; Z95.1 Presence of aortocoronary bypass graft; Z90.49 Acquired absence of other specified parts of digestive tract; Z79.84 Long term (current) use of oral hypoglycemic drugs; Z79.51 Long term (current) use of inhaled steroids; Z79.52 Long term (current) use of systemic steroids; Z79.899 Other long term (current) drug therapy
CPT/HCPCS: 36415; 36416; 71045; 80048; 80053; 80306; 82553; 82805; 83735; 83880; 84439; 84443; 84484; 85014; 85018; 85025; 85049; 93005; 93010; 93306; 94640; 94644; 94660; 94760; 96361; 96365; 96375; J0456; J0696; J1100; J1644; J1650; J1815; J1940; J2405; J2920; J3475; J3490; J7050; J7512; J7611; J7620; Q0163

== ENCOUNTER 2023-02-27 10:20 | Outpatient (CLI) | payer OTHER, MEDICAID ==
[~2023-02-27 10:20] MED LIST: Magnevist 469MG/ML 20 ML VIAL ONE
== END 2023-02-27 10:21 | disposition home or self-care (01) ==
LOC: MRI 10:20
PROVIDERS: ATTEND Internal Medicine
DX: K76.9 Liver disease, unspecified (principal); R16.1 Splenomegaly, not elsewhere classified; R10.12 Left upper quadrant pain; R10.32 Left lower quadrant pain; R14.0 Abdominal distension (gaseous); D73.89 Other diseases of spleen
CPT/HCPCS: 74183; A9579